=== PATIENT | male | born 1935 | race Caucasian/White ===

== ENCOUNTER 2016-05-24 05:03 | Inpatient (IN) | payer OTHER ==
[2016-05-09 10:35] VITALS: BMI 28.0
--- NOTE | 2016-05-09 11:02 | PAT Medication Instructions ---
Service Date May 09, 2016. Current Home Medication List Acetaminophen/Diphenhydramine (Tylenol Pm), 2 TAB PO HS Aspirin (Aspirin Chewable), 81 MG PO QAM Fish Oil (Waycross-3), 1 CAP PO QAM Glipizide (Glipizide Er), 1 TAB PO BID Lisinopril (Zestril), 5 MG PO QAM Multivitamin (Multivitamin), 1 TAB PO QAM Red Yeast Rice Extract (Red Yeast Rice), 600 MG PO QAM Sitagliptin Phosphate (Januvia), 100 MG PO QAM [Cholesterol Ess], 1 TAB PO BID [Otc Eye Drops], 1 DROP OPB PRN Medication Instructions For Your Scheduled Surgery - Hold the following medications 2 weeks prior to surgery: Fish Oil (Waycross-3), 1 CAP PO QAM Red Yeast Rice Extract (Red Yeast Rice), 600 MG PO QAM - Hold the following medications the morning of surgery: [Cholesterol Ess], 1 TAB PO BID Glipizide (Glipizide Er), 1 TAB PO BID Lisinopril (Zestril), 5 MG PO QAM Multivitamin (Multivitamin), 1 TAB PO QAM Sitagliptin Phosphate (Januvia), 100 MG PO QAM - Take the following medications the morning of surgery with a sip of water OTHERWISE NOTHING TO EAT OR DRINK AFTER MIDNIGHT: [Otc Eye Drops], 1 DROP OPB PRN Aspirin (Aspirin Chewable), 81 MG PO QAM - Take the following medications as scheduled the night before surgery: [Otc Eye Drops], 1 DROP OPB PRN Acetaminophen/Diphenhydramine (Tylenol Pm), 2 TAB PO HS [Cholesterol Ess], 1 TAB PO BID Glipizide (Glipizide Er), 1 TAB PO BID If you have any questions please call us at [phone] or [phone] or [phone]
--- NOTE | 2016-05-09 11:40 | DIAGNOSTIC IMAGING REPORT ---
CHEST PREADMISSION(PA/LAT) CLINICAL HISTORY: PAT preoperative evaluation COMPARISON STUDY: 04/21/2015 FINDINGS: The bones soft tissues and hemidiaphragms are normal. The cardiomediastinal silhouette is normal. The lungs are clear. The pulmonary vasculature is normal. IMPRESSION: Negative chest. Electronically signed by: Anrdes Ruffin M.D. 05/09/2016 11:38 AM Dictated Date/Time: 05/09/2016 11:38 AM
[2016-05-09 11:46] LABS: BASO % 0.1 %; BASO ABS # 0.01 K/uL (0-0.2); COMPLETE YES; EOS % 0.9 %; HEMATOCRIT 38.7 % (42-52); IG% 1.4 %; LYMPH % 40.6 %; LYMPH ABS # 3.67 K/uL (1.2-3.4); MEAN CELL VOLUME 88.4 fL (80-100); MEAN CORPUSCULAR HEMOGLOBIN 32.2 pg (25-34); MEAN CORPUSCULAR HGB CONC 36.4 g/dl (32-36); MEAN PLATELET VOLUME 10.7 fL (7.4-10.4); MONO % 10.2 %; NEUT % 46.8 %; PLATELET COUNT 165 K/uL (130-400); RED BLOOD COUNT 4.38 M/uL (4.7-6.1); WHITE BLOOD COUNT 9.04 K/uL (4.8-10.8)
[2016-05-09 11:56] LABS: PROTHROMBIN TIME (PATIENT) 10.7 SECONDS (9.0-12.0)
[2016-05-09 12:06] LABS: BLOOD UREA NITROGEN 30 mg/dl (7-18); BUN/CREATININE RATIO 24.7 (10-20); C-REACTIVE PROTEIN < 0.29 mg/dl (0-0.29); CALCIUM 8.3 mg/dl (8.5-10.1); CARBON DIOXIDE 26 mmol/L (21-32); CHLORIDE 101 mmol/L (98-107); GLUCOSE 246 mg/dl (70-99); POTASSIUM 3.9 mmol/L (3.5-5.1); SODIUM 138 mmol/L (136-145)
[2016-05-09 13:12] LABS: ESTIMATED AVERAGE GLUCOSE 163 mg/dl; HA1C FLAG Normal (Normal)
--- NOTE | 2016-05-21 13:15 | HISTORY & PHYSICAL EXAMINATION ---
DATE OF ADMISSION: 05/24/2016 CHIEF COMPLAINT: Right hip and leg pain. HISTORY OF PRESENT ILLNESS: A 80-year-old gentleman pretty well known to me from previous right knee replacement done about 2-1/2 years ago. He has done pretty well from this knee standpoint. Since that time he has had 2 back surgeries done in [place]. He continues to be bothered by right hip and leg pain and describes it has gotten worse over time. He is having difficulty even getting around. He has actually thought about going to use a wheelchair. He has tried a cane but still causes quite a bit of discomfort. He describes groin and thigh pain. He has been managed by the pain clinic unsuccessfully. X-rays show advanced hip arthritis and he would like to have this hip fixed. PAST MEDICAL HISTORY: 1. Diabetes x15 years. 2. Low back pain. 3. Mild obesity, BMI 28.2. PAST SURGICAL HISTORY: 1. Back surgery x2. 2. Right knee replacement 2-1/2 years ago. ALLERGIES: None. CURRENT MEDICATIONS: 1. Lisinopril. 2. Januvia. 3. Glipizide. 4. Multivitamin. 5. Fish oil. 6. Red Rice Yeast. SOCIAL HISTORY: A 80-year-old male. He lives with some family members at home. Does not have a . He went to rehab after his spine surgery. FAMILY HISTORY: Noncontributory. REVIEW OF SYSTEMS: Significant for diabetes with an A1c of 7.3. Denies any chest pain, shortness of breath. No history of DVT or PE. No problems with infection. PHYSICAL EXAMINATION: GENERAL: Reveals a pleasant elderly male, looks to be in pretty good health. HEAD, EYES, EARS, NOSE, AND THROAT EXAMINATION: Benign. NECK: Supple. No lymphadenopathy. LUNGS: Clear to auscultation. HEART: Regular rate and rhythm. ABDOMEN: Soft, nontender, nondistended. EXTREMITY EXAMINATION: Grossly neurologically intact except as follows: Examination of right hip reveals the patient walks with a limp. His knee incision is well healed. No significant swelling. His leg lengths are pretty equal. He does have limited hip motion with pain with any type of internal rotation. Negative straight leg raise. X-RAYS: X-rays of the right hip revealed advanced right hip DJD. He has got complete loss of his joint space. He has got cystic changes of the femoral head and acetabulum. He has got flattening of the femoral head. X-rays of the lumbar spine reveal previous spine fusion and decompression from L4 to the sacrum. No obvious signs of problems. ASSESSMENT: A 80-year-old male status post 2 previous spine surgeries with advanced right hip arthritis. I think this is the source of the majority of his pain at this point. It is becoming incapacitating and he is having trouble getting around. PLAN: We talked about treatment. He would like to have his right hip replaced. We will take him to the operating room and do a right total hip replacement. The risks and benefits of this procedure were explained to the patient including but not limited to DVT, PE, , infection, neurological injury, vascular injury, bleeding problem, pain, limited range of motion, stiffness, failure to relieve symptoms, incomplete relief of symptoms, need for further surgery in the future, fracture, leg length inequality, nerve palsy, dislocation, etc. The patient understands and desires to proceed. Informed consent was obtained. We did talk to him about holding his lisinopril the morning of surgery. He is hoping to go to [facility] for a brief rehab stay after surgery. I did do a workup and everything looked pretty good. Sed rate and C-reactive protein are both negative for any signs of infection. Chest x-ray negative and EKG normal.
[~2016-05-24] VITALS: Ht 175.3 cm; Wt 87.7 kg
[2016-05-24] VITALS (18 sets, daily range): BP systolic 117–166; BP diastolic 61–94; PULSE 65–109; TEMP 36.4–37; O2SAT 92–99; Ht 175.3 cm; Wt 87.7 kg
[~2016-05-24 05:03] MED LIST: ASPCH81X PO; DIPH-437 PO; GLIP-199 PO; LISI-729 PO; MULT-506 PO; OMEG10007 PO; OTC EYE DROPS OPB; REDCAP2 PO; SITA100T3 PO; [UNRECOGNIZED DRUG - OTHER] PO
[2016-05-24] MEDS ORDERED: FAMOTIDINE 20 MG TAB PO SCH (06:00)
[2016-05-24] MEDS ORDERED: BUPIVACAINE LIPOSOME 266 MG, BUPIVACAINE/EPINEPHRINE INJ 50 ML, SODIUM CHLORIDE 0.9% PF... INFIL SCH ×3 (06:00)
[2016-05-24] MEDS ORDERED: METOCLOPRAMIDE HCL 10 MG TAB PO SCH (06:00)
[2016-05-24] MEDS ORDERED: GABAPENTIN 300 MG CAP PO SCH (06:00)
[2016-05-24] MEDS ORDERED: ACETAMINOPHEN 500 MG TAB PO SCH (06:00)
[2016-05-24] MEDS ORDERED: LACTATED RINGER'S 1000ML 1,000 ML IV SCH (06:00)
[2016-05-24] MEDS ORDERED: SCOPOLAMINE 1.5 MG TDSY TD SCH (06:00)
[2016-05-24] MEDS ORDERED: LACTATED RINGER'S 1000ML IV SCH (06:00)
[2016-05-24] MEDS ORDERED: CEFAZOLIN 2000 MG/60 ML D5W 60 ML IV SCH (06:00)
[2016-05-24] MEDS ORDERED: TRANEXAMIC ACID INJ 1,000 MG in SODIUM CHLORIDE 0.9% 100ML 100 ML IV SCH ×2 (06:00→15:00)
[2016-05-24] MEDS ORDERED: BUPIVACAINE 0.5 % 5 MG/1 ML PF 10ML VIAL ONE (06:31)
[2016-05-24] MEDS ORDERED: BUPIVACAINE/EPINEPHRINE 0.5% MPF 1:200,000 30 ML VIAL ONE (06:33)
[2016-05-24] MEDS ORDERED: BACITRACIN 50000 UNIT VIAL ONE (06:33)
[2016-05-24] MEDS ORDERED: PROPOFOL IV EMULSION 10 MG/ML 20 ML VIAL IV ONE (06:34)
[2016-05-24] MEDS ORDERED: LIDOCAINE HCL 2% 2 ML VIAL (20MG/ML) ONE (06:34)
[2016-05-24] MEDS ORDERED: MIDAZOLAM HCL 1 MG/ML 2ML VIAL ONE (06:34)
[2016-05-24] MEDS ORDERED: FENTANYL CITRATE INJ 50 MCG/1 ML 2 ML VIAL ONE (06:34)
[2016-05-24] MEDS ORDERED: MoRPHine SULFATE PF 1 MG/ML 10 ML AMP/VIAL ONE (06:40)
--- NOTE | 2016-05-24 06:53 | History & Physical Bridge Note ---
H&P Re-Evaluation Bridge Note: I have examined the patient, reviewed the History & Physical and in the interval since the performance of the History & Physical I have noted the following changes of clinical significance: No changes noted
[2016-05-24] MEDS ORDERED: LACTATED RINGER'S 1000ML 500 ML IV PRN (07:22)
[2016-05-24] MEDS ORDERED: NALOXONE HCL INJ 0.08 MG in SYRINGE 1.8 ML IV PRN (07:22)
[2016-05-24] MEDS ORDERED: SODIUM CHLORIDE 0.9% 1000ML 1,000 ML IV PRN (07:22)
[2016-05-24] MEDS ORDERED: NALOXONE HCL INJ 1 MG in SODIUM CHLORIDE 0.9% 1000ML 1,000 ML IV PRN (07:22)
[2016-05-24] MEDS ORDERED: PHENYLEPHRINE 100MCG/ML 5ML SYR ONE (07:28)
[2016-05-24] MEDS ORDERED: EpHEDrine SULFATE INJ 50 MG/ML AMP IV PRN ×2 (07:30)
[2016-05-24] MEDS ORDERED: FENTANYL CITRATE INJ 50 MCG/1 ML 2 ML VIAL IV PRN (07:30)
[2016-05-24] MEDS ORDERED: DiphenhydrAMINE HCL 50 MG/ML VIAL IV PRN (07:30)
[2016-05-24] MEDS ORDERED: ONDANSETRON INJ 2 MG/ML 2 ML VIAL IV PRN ×2 (07:30→09:00)
[2016-05-24] MEDS ORDERED: NALBUPHINE HCL INJ 10 MG/ML AMP IV PRN (07:30)
[2016-05-24] MEDS ORDERED: NALOXONE HCL 0.4 MG/1 ML VIAL/CARP IV PRN (07:30)
[2016-05-24] MEDS ORDERED: ATROPINE SULFATE 0.1 MG/ML 5ML SYR IV PRN (07:30)
[2016-05-24] MEDS ORDERED: MEPERIDINE HCL 25 MG/ML CARP IV PRN (07:30)
[2016-05-24] MEDS ORDERED: NO NARCOTICS OR SEDATIVES SCH (07:30)
[2016-05-24] MEDS ORDERED: MoRPHine SULFATE PF 1 MG/ML 10 ML AMP/VIAL EPI PRN (07:30)
--- NOTE | 2016-05-24 08:48 | [facility] Post Operative Brief Note ---
Immediate Operative Summary Operative Date May 24, 2016. Pre-Operative Diagnosis Advanced right hip arthritis Post-Operative Diagnosis Advanced right hip arthritis Procedure(s) Performed Right Total Hip Arthroplasty, uncemented with beaded cables times two. Surgeon Dr Elan Truong Room Service Manager Surgeon(s) Bill Santamaria PA-C Estimated Blood Loss 300ml Findings Right Hip DJD Fluids (cc crystalloids) 1600 cc Specimens A: right femoral head Drains None Anesthesia Spinal Complication(s) Medial Calcar Fracture with implant impaction. Placed 2 Dall-Miles cables to prevent propogation of fracture. Disposition Recovery Room / PACU
[2016-05-24] MEDS ORDERED: GLUCOSE 10 TABS/TUBE PO PRN (09:00)
[2016-05-24] MEDS ORDERED: BISACODYL 10 MG SUPP PR PRN (09:00)
[2016-05-24] MEDS ORDERED: TAMSULOSIN HCL 0.4 MG CAP PO PRN (09:00)
[2016-05-24] MEDS ORDERED: SILVER SULFADIAZINE 1% CR 50 GM JAR EXT PRN (09:00)
[2016-05-24] MEDS ORDERED: METOCLOPRAMIDE HCL INJ 5 MG/ML 2 ML VIAL IV PRN (09:00)
[2016-05-24] MEDS ORDERED: ALUMINUM/MAGNESIUM/SIMETH (MAALOX MAX) 30 ML UDC PO PRN (09:00)
[2016-05-24] MEDS ORDERED: GLUCAGON FOR INJ 1 MG VIAL SQ PRN (09:00)
[2016-05-24] MEDS ORDERED: [UNRECOGNIZED DRUG - OTHER] PO SCH (09:00)
[2016-05-24] MEDS ORDERED: MULTIVITAMIN TAB PO SCH (09:00)
[2016-05-24] MEDS ORDERED: GLUCOSE 40% GEL 15 GM TUBE PO PRN (09:00)
[2016-05-24] MEDS ORDERED: DEXTROSE 50% 50 ML SYR IV PRN (09:00)
[2016-05-24] MEDS ORDERED: EYE OPB SCH (09:00)
[2016-05-24] MEDS ORDERED: MAGNESIUM HYDROXIDE SUSP 30 ML UDC PO PRN (09:00)
[2016-05-24] MEDS ORDERED: NO NSAIDS SCH (09:00)
--- NOTE | 2016-05-24 09:44 | OPERATIVE REPORT ---
DATE OF OPERATION: 05/24/2016 SURGEON: Elan Truong MD. INSERTING OPERATOR: ANJUM Robles. PREOPERATIVE DIAGNOSIS: Right hip degenerative joint disease. POSTOPERATIVE DIAGNOSIS: Same. PROCEDURE PERFORMED: Right uncemented total hip arthroplasty. COMPLICATIONS: Medial calcar fracture, treated with cerclage cable x2. ESTIMATED BLOOD LOSS: 300 mL FLUID REPLACEMENT: 1600 mL crystalloid fluid replacement. ANESTHESIA: Spinal. DRAINS: None. SPECIMENS: Right femoral head sent for pathology. OPERATIVE INDICATIONS: The patient is a 80-year-old gentleman who is 2-1/2 years out from right knee replacement. He has done well, but over the past year he has developed markedly increased pain and discomfort in his right hip. He has been through several extensive back operations. He has become more and more debilitated by his hip pain. X-rays show advanced right hip DJD. He has been using a cane to get around. He elected to proceed with total hip arthroplasty. OPERATIVE FINDINGS: Operative findings revealed advanced right hip DJD. He had grade 4 [id number] disease of the femoral head and acetabulum. He has significant hip joint effusion. He had osteophytes around the femoral neck and head area. OPERATIVE IMPLANTS: Operative implants consisted of: 1. Biomet G7 size 58 mm acetabular shell. 2. 6.5 cancellous acetabular screws, one 35 mm in length and one 25 mm in length. 3. An apex hole eliminator. 4. Highly cross-linked polyethylene liner with 58 mm outer diameter, 36 mm inner diameter, with a arshad placed very inferior and posterior. 5. A DePuy size 13.5 large stature femoral stem. 6. A +1.5/36 mm metal articular ball. 7. 2.0 Dall-Miles cables x2. OPERATIVE PROCEDURE: The patient was taken to the operating room, identified and placed on the operative table in supine position. All contact areas were appropriately padded. IV antibiotics provided by anesthesia team. A spinal anesthetic had been implemented in the holding area. Jenkins catheter was placed in sterile fashion. The patient was then placed in the left lateral decubitus position. An axillary roll was placed. A Stulberg hip positioner was used for positioning. The right hip and leg were then prepped and draped in usual sterile fashion. A posterolateral approach to the right hip was then performed through a curvilinear incision centered over the greater trochanter. Sharp dissection was carried out through the subcutaneous tissue down to the level of the IT band and gluteal fascia. The IT band and gluteal fascia were incised longitudinally in line with skin incision. The piriformis and external rotators were tagged and taken off the posterior aspect of the femur. Great care was taken throughout the procedure to protect the sciatic nerve at all times. Posterior capsulotomy was then performed, leaving a large flap for later repair. Hip was internally rotated and dislocated. Femoral neck osteotomy cut was made with the final cut about 17 mm above the lesser trochanter. Femoral head was removed and sent for pathology. The femur was retracted anteriorly. Attention was then drawn to the acetabulum. The acetabular labrum was excised. The pulvinar fat was excised. Sequential reaming of the acetabulum was then performed beginning with a size 45 and progressing up to 57. A 58 mm Biomet G7 acetabular shell was then placed in about 40 degrees of lateral opening and 20 degrees of anteversion. It was fixed with two 6.5 cancellous acetabular screws. A trial liner was placed. Attention was then drawn to the femur. The proximal femur was entered with a cookie cutter, followed by a canal finder and lateralizing reamer. Sequential reaming of the femur was then performed beginning with a size 9 and progressing up to a 13. We got pretty good chatter at about 12. I then broached beginning with a size 10.5 and progressing up to a 13.5 small broach. This countersunk pretty easily, so I elected to place a large stem. We placed a large broach, but upon placing this without much forcible impaction, there was a little crack in the medial calcar which did seem to propagate slightly as we implanted the trial. Therefore, we got two 2.0 Dall-Miles cables and placed one just above the lesser trochanter and one just below. I then broached again with the broach and was able to get it down close to the calcar cut but not quite. We elected not to force this. There were no signs of propagation of the fracture line below the lesser trochanter or even down to the wire. We then trialed the hip and the +1 articular ball seemed to provide appropriate soft tissue tension and leg lengths. It was fully stable in full extension, external rotation, flexion to 90 degrees, internal rotation to [address] a arshad inferior and posterior to maximize stability in flexion. I thought it was a little bit too tight with the +5 head. Attention was then drawn toward placing these permanent components. All trial components were removed. An apex hole eliminator was placed. A highly cross-linked polyethylene liner with a arshad placed inferior and posterior was then placed. A 13.5 large stature AML femoral stem was impacted in position. There were no further signs of propagation of the fracture. I then placed a +1.5/36 mm metal articular ball and hip was located and once again found to be stable. Attention was then drawn toward closing. The wound was irrigated with copious amounts of normal saline. I injected locally with 60 mL of 0.5% Marcaine with epinephrine. The posterior capsule and external rotators were repaired through drill holes and posterior trochanter with #2 Ti-Cron suture. The IT band and gluteal fascia were then closed with #1 PDS suture in running fashion. The subcutaneous tissues were then closed in 2 layers, the deep layer #1 Vicryl suture and the subcutaneous tissue with 2-0 Dexon suture in a buried interrupted fashion. The skin was then closed with kevin. The leg was then cleaned and dried, and a sterile dressing of Xeroform, 4 x 4's, sterile ABD pad and foam tape was applied. The patient was then transferred to the recovery room in stable condition. The patient tolerated the procedure well, no additional complications. All needle and sponge counts were correct at the end of the operation. I attest to the content of the Intraoperative Record and any orders documented therein. Any exceptions are noted below. SHER
--- NOTE | 2016-05-24 09:44 | Anesthesiology Progress Note ---
Anesthesia Post Op Note Date & Time May 24, 2016 at 09:45 Vital Signs Pain Intensity: 0 Vital Signs Past 12 Hours Date Time Temp Pulse Resp B/P Pulse Ox O2 Delivery O2 Flow Rate FiO2 05/24/16 09:35 36.4 70 15 121/57 97 Nasal Cannula 2 05/24/16 09:25 36.4 70 15 104/59 97 Nasal Cannula 2 05/24/16 09:15 70 15 109/59 98 Nasal Cannula 2 05/24/16 09:05 71 15 112/52 97 Nasal Cannula 2 05/24/16 08:55 74 13 108/58 97 Nasal Cannula 2 05/24/16 08:48 37.0 74 16 114/57 97 Nasal Cannula 2 05/24/16 06:01 36.5 84 20 166/94 95 Room Air Notes Mental Status: alert / awake / arousable, participated in evaluation Pt Amnestic to Procedure: Yes Nausea / Vomiting: adequately controlled Pain: adequately controlled Airway Patency, RR, SpO2: stable & adequate BP & HR: stable & adequate Hydration State: stable & adequate Neuraxial Anesthesia: was administered, sensory block is resolving Anesthetic Complications: no major complications apparent
--- NOTE | 2016-05-24 09:54 | DIAGNOSTIC IMAGING REPORT ---
RIGHT PELVIS/UNILATERAL HIP 1 VIEW CLINICAL HISTORY: IN PACU - A/P PELVIS and LATERAL HIP INCLUDING ALL OF IMPLANT Right COMPARISON: None. DISCUSSION: Patient is status post total right hip replacement. Due to compression wires is seen at the level of the lesser trochanter. I'm is anatomic. No evidence for acetabular protrusion. Good contact between metallic prosthetic and underlying bone. Expected soft tissue postoperative change IMPRESSION: Anatomic alignment status post total right hip replacement Electronically signed by: Andres Ruffin M.D. 05/24/2016 9:53 AM Dictated Date/Time: 05/24/2016 9:52 AM
[2016-05-24] MEDS: SODIUM CHLORIDE 0.9% 1000ML 1,000 ML IV SCH ×2 (10:55→21:04)
[2016-05-24] MEDS ORDERED: ASPIRIN 325 MG ECTAB PO ONE (11:00)
[2016-05-24] MEDS: FERROUS GLUCONATE 324 MG TAB PO SCH ×2 (12:11→18:34)
[2016-05-24] MEDS: INSULIN HUMAN REGULAR SC SCH ×3 (12:16→21:03)
[2016-05-24] MEDS: ACETAMINOPHEN 500 MG TAB PO SCH ×2 (13:29→21:48)
[2016-05-24] MEDS: CEFAZOLIN IV 2,000 MG in DEXTROSE 5% 50ML 50 ML IV SCH ×2 (13:29→21:48)
--- NOTE | 2016-05-24 13:35 | PROGRESS NOTE ---
DATE: 05/24/2016 SUBJECTIVE: A 80-year-old gentleman postop from a right total hip replacement. He is doing well. He is sitting up in bed and talking to his son. Looks pretty comfortable. Denies any pain. No chest pain or shortness of breath. No hip pain. OBJECTIVE: VITAL SIGNS: Temperature is 36.4. Vital signs stable. GENERAL: Reveals a healthy pleasant elderly male. He is sitting up in bed and looks pretty comfortable. LUNGS: Clear to auscultation. HEART: Regular rate and rhythm. ABDOMEN: Soft, nontender, nondistended. EXTREMITIES: Grossly neurovascularly intact except as follows. Examination of the right lower extremity reveals the leg to be well aligned. Hip is located. He can dorsiflex and plantarflex his foot appropriately. He is neurologically intact. X-RAYS: X-rays of the right hip from recovery room were reviewed. It shows a right uncemented total hip arthroplasty. Components are in good position. No signs of problems. Cerclage cables are in place. No signs of fracture. ASSESSMENT: A 80-year-old gentleman postop from a right total hip replacement, doing well. We did have a small calcar fracture which did not propagate and we placed cerclage cables around that. I did discuss that with his son as well as the patient today. I do not think we need to alter his rehabilitation status. PLAN: 1. DVT prophylaxis including thigh-high TEDs, SCDs, and aspirin twice a day. 2. PT and OT. We are going to let him weightbear as tolerated. We use pain as a guide. I do not think we need to alter his weightbearing status based on a small crack and it is well stabilized with cerclage cables. 3. IV antibiotics x24 hours. 4. Pain control, doing well with current pain regimen. We are going to try and limit narcotic use to avoid confusion. 5. Medical management as per the medicine physicians. 6. Disposition: He is hoping to be discharged to [facility] for a brief rehab stay once stable.
--- NOTE | 2016-05-24 14:26 | Medical Consult ---
Consultation Date of Consultation: May 24, 2016. Attending Physician: Elan Truong M.D. Reason for Consultation: Medical management History of Present Illness This patient is a 80-year-old male that underwent a right ADRIAN today with Dr. Truong. He currently has no complaints. Denies any pain. The leg is still numb. Denies any nausea. Tolerating his diet. He has not yet passed gas or had any bowel movements. Denies any history of coronary artery disease or blood clots. Denies any recent chest pain or pressure. The patient has a history of hypertension and diabetes type 2. He reports his blood sugars have been well controlled at home. Past Medical/Surgical History Diabetes type 2 Hypertension Family History Family history of hypertension, diabetes Social History Smoking Status: Former Smoker Alcohol Use: none Occupation Status: retired Allergies Coded Allergies: NSAIDs (Unverified Adverse Reaction, Severe, GI UPSET, 05/24/16) Current Inpatient Medications Current Inpatient Medications Medications (Trade) Dose Ordered Sig/Solis Route Start Time Stop Time Status Last Admin Dose Admin Lactated Ringer's 1,000 ml @ 60 mls/hr [id number] IV 05/24/16 06:00 05/24/16 22:39 05/24/16 06:21 60 MLS/HR Cefazolin Sodium (Ancef 2000mg/60 ml D5W) 60 ml @ 100 mls/hr PREOP IV 05/24/16 06:00 05/24/16 18:00 05/24/16 06:58 100 MLS/HR Acetaminophen 1000 mg 1,000 mg PREOP PO 05/24/16 06:00 05/24/16 18:00 05/24/16 06:21 1,000 MG Bupivacaine Liposome/ Bupivacaine HCl/ Epinephrine Bitart/Sodium Chloride/Syringe (Exparel/ BUPIVACAINE/ EPINEPHRINE 0.25% Inj/Sodium Chloride 0.9% Pf Inj/Syringe) 100 ml @ 0 mls/hr 06 INFIL 05/24/16 06:00 05/24/16 18:00 Famotidine (Pepcid Tab) 20 mg PREOP PO 05/24/16 06:00 05/24/16 18:00 05/24/16 06:21 20 MG Gabapentin (Neurontin Cap) 300 mg PREOP PO 05/24/16 06:00 05/24/16 18:00 3/21/17 06:21 300 MG Metoclopramide HCl (Reglan Tab) 10 mg PREOP PO 05/24/16 06:00 05/24/16 18:00 05/24/16 06:21 10 MG Scopolamine (Transderm-Scop Patch) 1.5 mg PREOP TD 05/24/16 06:00 05/24/16 15:00 Miscellaneous (Remove Transderm-Scop Patch) 1 ea Q72H N/A 05/27/16 06:00 05/27/16 06:01 Miscellaneous Information 1 ea 1 ea QS N/A 05/24/16 16:00 05/26/16 05:59 Tranexamic Acid/ Sodium Chloride (Cyklokapron Inj/ Nss 100ml) 110 ml @ 660 mls/hr TODAY@0600 IV 05/24/16 06:00 05/24/16 18:00 Naloxone HCl (Narcan Inj) 0.1 mg UD PRN IV 05/24/16 07:30 05/25/16 01:00 Diphenhydramine HCl (Benadryl Inj) 25 mg Q6H PRN IV 05/24/16 07:30 05/25/16 01:00 Nalbuphine HCl 5 mg 5 mg Q10M PRN IV 05/24/16 07:30 05/25/16 01:00 Naloxone HCl/ Sodium Chloride (Narcan Inj/Nss 1000ml) 1,002.5 ml @ 50 mls/hr Q20H3M PRN IV 05/24/16 07:22 05/25/16 01:00 Meperidine HCl (Demerol Inj) 25 mg Q15M PRN IV 05/24/16 07:30 05/25/16 01:00 Miscellaneous Information (Dc Intraspinal Morphine) 1 ea TODAY@0100 N/A 05/25/16 01:00 05/25/16 01:01 Miscellaneous Information 1 ea 1 ea UD N/A 05/24/16 07:30 05/25/16 01:00 Naloxone HCl 0.08 mg/Syringe 2 ml @ 1 mls/min Q2M PRN IV 05/24/16 07:22 05/25/16 01:00 Lactated Ringer's (Lr 1000ml) 500 ml @ 999 mls/hr Q31M PRN IV 05/24/16 07:22 05/25/16 01:00 Ephedrine Sulfate (EpHEDrine SULFATE INJ) 10 mg Q5M PRN IV 05/24/16 07:30 05/25/16 01:00 Morphine Sulfate TODAY PRN EPI 05/24/16 07:30 05/25/16 01:00 Sodium Chloride 1,000 ml @ 15 mls/hr Q24H PRN IV 05/24/16 07:22 05/25/16 01:00 Sodium Chloride (Nss 1000ml) 1,000 ml @ 100 mls/hr Q10H IV 05/24/16 10:30 05/25/16 10:29 05/24/16 10:55 100 MLS/HR Miscellaneous Medication (No Nsaids) 1 ea UD N/A 05/24/16 09:00 06/23/16 08:59 Acetaminophen (Tylenol Tab) 1,000 mg Q8 PO 05/24/16 14:00 06/23/16 13:59 05/24/16 13:29 1,000 MG Magnesium Hydroxide (Milk Of Magnesia Susp) 30 ml Q6H PRN PO 05/24/16 09:00 06/23/16 08:59 Bisacodyl (Dulcolax Supp) 10 mg DAILY PRN NJ 05/24/16 09:00 06/23/16 08:59 Docusate Sodium (coLACE CAP) 100 mg BID PO 05/24/16 21:00 06/23/16 20:59 Diphenhydramine HCl (Benadryl Cap) 25 mg Q8H PRN PO 05/25/16 01:00 06/24/16 00:59 Diphenhydramine HCl (Benadryl Inj) 25 mg Q8H PRN IV 05/25/16 01:00 06/24/16 00:59 Al Hydrox/Mg Hydrox/Simethicone (Maalox Max Susp) 15 ml Q4H PRN PO 05/24/16 09:00 06/23/16 08:59 Zolpidem Tartrate (Ambien Tab) 5 mg HSZ PRN PO 05/25/16 01:00 06/24/16 00:59 Ondansetron HCl (Zofran Inj) 4 mg Q6H PRN IV 05/24/16 09:00 06/23/16 08:59 Metoclopramide HCl (Reglan Inj) 10 mg Q6H PRN IV 05/24/16 09:00 06/23/16 08:59 Ferrous Gluconate (Ferrous Gluconate Tab) 324 mg TIDM PO 05/24/16 12:00 06/23/16 11:59 05/24/16 12:11 324 MG Pantoprazole Sodium (Protonix Tab) 40 mg QAM PO 05/25/16 09:00 06/24/16 08:59 Silver Sulfadiazine (Silvadene 1% Crm 50GM Jar) 1 appln BID PRN EXT 05/24/16 09:00 06/23/16 08:59 Aspirin (Ecotrin Tab) 325 mg BID PO 05/24/16 21:00 06/23/16 20:59 Tramadol HCl (Ultram Tab) 1 TABLET FOR PAIN RATING... Q4H PRN PO 05/25/16 01:00 06/24/16 00:59 Tamsulosin HCl 0.4 mg 0.4 mg QAM PRN PO 05/24/16 09:00 06/23/16 08:59 Cefazolin Sodium 2000 mg/Dextrose 60 ml @ 100 mls/hr Q8H IV 05/24/16 14:00 05/24/16 22:35 05/24/16 13:29 100 MLS/HR Tranexamic Acid/ Sodium Chloride (Cyklokapron Inj/ Nss 100ml) 110 ml @ 660 mls/hr TODAY@1500 IV 05/24/16 15:00 05/24/16 17:00 Lisinopril (Zestril Tab) 5 mg QAM PO 05/25/16 09:00 06/24/16 08:59 Multivitamins (Multivitamin Tab) 1 tab QAM PO 05/25/16 09:00 06/24/16 08:59 Sitagliptin Phosphate (Januvia Tab) 100 mg QAM PO 05/25/16 09:00 06/24/16 08:59 Glipizide (GlipiZIDE EXTENDED REL TAB) 10 mg BIDM PO 05/24/16 17:45 06/23/16 17:44 Insulin Human Regular (novoLIN-R) 1 units ACHS SC 05/24/16 11:00 06/23/16 10:59 05/24/16 12:16 1 UNITS Glucose (Glucose 40% Gel) 15-30 GRAMS 15 GRAMS... UD PRN PO 05/24/16 09:00 06/23/16 08:59 Glucose (Glucose Chew Tab) 4-8 Tablets 4 Tabl... UD PRN PO 05/24/16 09:00 06/23/16 08:59 Dextrose (Dextrose 50% 50ML Syringe) 25-50ML OF 50% DW IV FOR... UD PRN IV 05/24/16 09:00 06/23/16 08:59 Glucagon (Glucagon Inj) 1 mg UD PRN SQ 05/24/16 09:00 06/23/16 08:59 Hydromorphone HCl (Dilaudid Inj) 1 mg Q1H PRN IV 05/25/16 01:00 06/08/16 00:59 Review of Systems 10 system review performed and negative unless noted in HPI or below Physical Exam Date Time Temp Pulse Resp B/P Pulse Ox O2 Delivery O2 Flow Rate FiO2 05/24/16 12:56 36.4 68 16 146/79 95 Room Air 05/24/16 11:59 65 20 137/80 94 Room Air 05/24/16 11:04 65 19 118/67 92 Room Air 05/24/16 10:30 66 20 117/61 93 Room Air 05/24/16 10:00 99 Nasal Cannula 2.0 05/24/16 10:00 Nasal Cannula 05/24/16 10:00 36.8 74 16 117/64 99 Nasal Cannula 2.0 05/24/16 09:35 36.4 70 15 121/57 97 Nasal Cannula 2 05/24/16 09:25 36.4 70 15 104/59 97 Nasal Cannula 2 05/24/16 09:15 70 15 109/59 98 Nasal Cannula 2 05/24/16 09:05 71 15 112/52 97 Nasal Cannula 2 05/24/16 08:55 74 13 108/58 97 Nasal Cannula 2 05/24/16 08:48 37.0 74 16 114/57 97 Nasal Cannula 2 05/24/16 06:01 36.5 84 20 166/94 95 Room Air General Appearance: no apparent distress Head: normocephalic Eyes: EOMI Neck: no JVD Respiratory/Chest: lungs clear Cardiovascular: regular rate, rhythm Abdomen/GI: normal bowel sounds, non tender, soft Extremities/Musculoskelatal: no pedal edema Neurologic/Psych: oriented x 3 Skin: warm/dry Laboratory Results Last 24 Hours Test 05/24/16 06:14 05/24/16 08:54 05/24/16 11:33 Bedside Glucose 146 mg/dl 139 mg/dl 132 mg/dl Assessment & Plan 80-year-old male status post elective right ADRIAN 05/24 -pain management, DVT prophylaxis, PT per primary team Diabetes mellitus-BSGs stable -Continue glipizide extended release 10 mg twice daily -Continue Januvia 100 mg daily -Insulin sliding scale -Follow BSG's in the morning, in the evening and with meals Hypertension -Continue lisinopril 5 mg daily -Hydralazine 10 mg IV q 6 hr PRN PA Physician Supervision Note: I interviewed and examined the patient. Discussed with Aleta CHAPARRO and agree with findings and plan as documented in the note. Any exceptions or clarifications are listed here: None PT with diabetes and htn stable post op hip replacement vitals stable pt is stable and has reasonable bp control and diabetes Documented By: Gavin Moser Thank you for this consult. We will continue to follow.
[2016-05-24] MEDS: CHECK SCOPOLAMINE PATCH PLACEMENT SCH (16:06)
[2016-05-24] MEDS: DOCUSATE SODIUM 100 MG CAP PO SCH (20:59)
[2016-05-24] MEDS: ASPIRIN 325 MG ECTAB PO SCH (21:00)
[2016-05-25] VITALS (10 sets, daily range): BP systolic 127–173; BP diastolic 64–77; PULSE 80–103; TEMP 36.6–37.3; O2SAT 94–98
[2016-05-25] MEDS: CHECK SCOPOLAMINE PATCH PLACEMENT SCH ×3 (00:17→15:40)
[2016-05-25] MEDS ORDERED: TRAMADOL HCL 50 MG TAB PO PRN (01:00)
[2016-05-25] MEDS ORDERED: HYDROmorphone INJ 0.5 MG/0.5 ML SYR IV PRN (01:00)
[2016-05-25] MEDS ORDERED: DC INTRASPINAL MORPHINE SCH (01:00)
[2016-05-25] MEDS ORDERED: ZOLPIDEM TARTRATE 5 MG TAB PO PRN (01:00)
[2016-05-25] MEDS ORDERED: DiphenhydrAMINE HCL 50 MG/ML VIAL IV PRN (01:00)
[2016-05-25] MEDS: ACETAMINOPHEN 500 MG TAB PO SCH ×3 (05:56→22:08)
[2016-05-25] MEDS: SODIUM CHLORIDE 0.9% 1000ML 1,000 ML IV SCH (05:57)
[2016-05-25 06:40] LABS: BASO % 0.1 %; BASO ABS # 0.01 K/uL (0-0.2); COMPLETE YES; EOS % 0.4 %; HEMATOCRIT 34.4 % (42-52); IG% 0.4 %; LYMPH % 18.2 %; MEAN CORPUSCULAR HEMOGLOBIN 32.3 pg (25-34); MEAN CORPUSCULAR HGB CONC 35.5 g/dl (32-36); MEAN PLATELET VOLUME 10.5 fL (7.4-10.4); MONO % 12.4 %; NEUT % 68.5 %; PLATELET COUNT 120 K/uL (130-400); RED BLOOD COUNT 3.78 M/uL (4.7-6.1); WHITE BLOOD COUNT 8.22 K/uL (4.8-10.8)
[2016-05-25 07:12] LABS: BUN/CREATININE RATIO 17.8 (10-20); CREATININE 1.3 mg/dl (0.60-1.40); POTASSIUM 4.2 mmol/L (3.5-5.1)
[2016-05-25] MEDS: INSULIN HUMAN REGULAR SC SCH ×4 (08:46→21:24)
[2016-05-25] MEDS: FERROUS GLUCONATE 324 MG TAB PO SCH ×3 (08:57→18:30)
[2016-05-25] MEDS: DOCUSATE SODIUM 100 MG CAP PO SCH ×2 (09:00→21:16)
[2016-05-25] MEDS: ASPIRIN 325 MG ECTAB PO SCH ×2 (09:00→21:16)
[2016-05-25] MEDS: SITAGLIPTIN 100 MG TAB PO SCH (09:02)
[2016-05-25] MEDS: PANTOprazole SOD 40 MG TAB PO SCH (09:03)
[2016-05-25] MEDS: MULTIVITAMIN TAB PO SCH (09:03)
[2016-05-25] MEDS: LISINOPRIL 5 MG TAB PO SCH (09:04)
--- NOTE | 2016-05-25 11:57 | Hospitalist Progress Note ---
Hospitalist Progress Note Date of Service May 25, 2016. Subjective Pt evaluation today including: conversation w/ patient, physical exam, chart review, lab review, review of inpatient medication list Patient complains of mild right hip pain posteriorly. Rates it as a 4/10. Voiding on his own. Passing gas. No bowel movements yet. Admits to getting disoriented last night. Feels back to normal now. Additional Comments: 6 system review negative. Please see pertinent positives in the history of present illness section. Objective Vital Signs Date Time Temp Pulse Resp B/P Pulse Ox O2 Delivery O2 Flow Rate FiO2 05/25/16 11:38 37.1 85 20 127/69 98 Room Air 05/25/16 09:32 94 Room Air 05/25/16 07:57 37.3 80 16 142/70 94 Room Air 05/25/16 05:55 91 05/25/16 03:15 36.9 103 18 132/64 95 Nasal Cannula 2.0 05/25/16 01:00 16 98 05/25/16 00:00 16 94 05/25/16 00:00 Nasal Cannula 2.0 05/24/16 23:25 37.0 109 18 125/75 94 Nasal Cannula 2.0 05/24/16 23:00 16 97 05/24/16 22:00 14 96 Nasal Cannula 2.0 05/24/16 21:00 16 95 Nasal Cannula 2.0 05/24/16 20:00 16 96 Nasal Cannula 2.0 05/24/16 18:54 36.7 86 18 139/72 93 2.0 05/24/16 18:01 76 96 Nasal Cannula 2.0 05/24/16 17:00 68 95 2.0 05/24/16 16:10 Nasal Cannula 2.0 05/24/16 16:00 16 97 Nasal Cannula 2.0 05/24/16 15:29 36.8 73 18 157/74 94 Room Air 05/24/16 15:00 16 94 Room Air 05/24/16 14:00 14 94 Room Air 05/24/16 12:56 36.4 68 16 146/79 95 Room Air 05/24/16 11:59 65 20 137/80 94 Room Air Physical Exam General Appearance: no apparent distress Eyes: EOMI Neck: no JVD Respiratory/Chest: lungs clear Cardiovascular: regular rate, rhythm Abdomen: normal bowel sounds, non tender, soft Extremities: no pedal edema Neurologic/Psychiatric: no motor/sensory deficits, oriented x 3 Skin: warm/dry Laboratory Results 05/25/16 05:45 Red Blood Count 3.78, Mean Corpuscular Volume 91.0, Mean Corpuscular Hemoglobin 32.3, Mean Corpuscular Hemoglobin Concent 35.5, Mean Platelet Volume 10.5, Neutrophils (%) (Auto) 68.5, Lymphocytes (%) (Auto) 18.2, Monocytes (%) (Auto) 12.4, Eosinophils (%) (Auto) 0.4, Basophils (%) (Auto) 0.1, Neutrophils # (Auto ) 5.63, Lymphocytes # (Auto) 1.50, Monocytes # (Auto) 1.02, Eosinophils # (Auto ) 0.03, Basophils # (Auto) 0.01 05/25/16 05:45 Test 05/25/16 05:45 05/25/16 08:16 White Blood Count 8.22 K/uL (4.8-10.8) Red Blood Count 3.78 M/uL (4.7-6.1) Hemoglobin 12.2 g/dL (14.0-18.0) Hematocrit 34.4 % (42-52) Mean Corpuscular Volume 91.0 fL (80-100) Mean Corpuscular Hemoglobin 32.3 pg (25-34) Mean Corpuscular Hemoglobin Concent 35.5 g/dl (32-36) Platelet Count 120 K/uL (130-400) Mean Platelet Volume 10.5 fL (7.4-10.4) Neutrophils (%) (Auto) 68.5 % Lymphocytes (%) (Auto) 18.2 % Monocytes (%) (Auto) 12.4 % Eosinophils (%) (Auto) 0.4 % Basophils (%) (Auto) 0.1 % Neutrophils # (Auto) 5.63 K/uL (1.4-6.5) Lymphocytes # (Auto) 1.50 K/uL (1.2-3.4) Monocytes # (Auto) 1.02 K/uL (0.11-0.59) Eosinophils # (Auto) 0.03 K/uL (0-0.5) Basophils # (Auto) 0.01 K/uL (0-0.2) RDW Standard Deviation 42.9 fL (36.4-46.3) RDW Coefficient of Variation 12.8 % (11.5-14.5) Immature Granulocyte % (Auto) 0.4 % Immature Granulocyte # (Auto) 0.03 K/uL (0.00-0.02) Anion Gap 7.0 mmol/L (3-11) Est Creatinine Clear Calc Drug Dose 50.5 ml/min Estimated GFR () 60.1 Estimated GFR (Non- 51.9 BUN/Creatinine Ratio 17.8 (10-20) Calcium Level 8.0 mg/dl (8.5-10.1) Bedside Glucose 130 mg/dl (70-99) Last 24 Hours Test 05/24/16 16:40 05/24/16 20:39 05/25/16 05:45 05/25/16 08:16 Bedside Glucose 131 mg/dl 168 mg/dl 130 mg/dl White Blood Count 8.22 K/uL Red Blood Count 3.78 M/uL Hemoglobin 12.2 g/dL Hematocrit 34.4 % Mean Corpuscular Volume 91.0 fL Mean Corpuscular Hemoglobin 32.3 pg Mean Corpuscular Hemoglobin Concent 35.5 g/dl Platelet Count 120 K/uL Mean Platelet Volume 10.5 fL Neutrophils (%) (Auto) 68.5 % Lymphocytes (%) (Auto) 18.2 % Monocytes (%) (Auto) 12.4 % Eosinophils (%) (Auto) 0.4 % Basophils (%) (Auto) 0.1 % Neutrophils # (Auto) 5.63 K/uL Lymphocytes # (Auto) 1.50 K/uL Monocytes # (Auto) 1.02 K/uL Eosinophils # (Auto) 0.03 K/uL Basophils # (Auto) 0.01 K/uL RDW Standard Deviation 42.9 fL RDW Coefficient of Variation 12.8 % Immature Granulocyte % (Auto) 0.4 % Immature Granulocyte # (Auto) 0.03 K/uL Sodium Level 142 mmol/L Potassium Level 4.2 mmol/L Chloride Level 106 mmol/L Carbon Dioxide Level 29 mmol/L Anion Gap 7.0 mmol/L Blood Urea Nitrogen 23 mg/dl Creatinine 1.30 mg/dl Est Creatinine Clear Calc Drug Dose 50.5 ml/min Estimated GFR () 60.1 Estimated GFR (Non- 51.9 BUN/Creatinine Ratio 17.8 Random Glucose 144 mg/dl Calcium Level 8.0 mg/dl Assessment and Plan 80-year-old male status post elective right ADRIAN 05/24 -pain management, DVT prophylaxis, PT per primary team Diabetes mellitus-BSGs stable in-house. -Continue current outpatient regimen: Glipizide extended release 10 mg twice daily, Januvia 100 mg daily -Insulin sliding scale -BSG's in the morning, in the evening and with meals Hypertension-BP stable -Continue lisinopril 5 mg daily -Hydralazine 10 mg IV q 6 hr PRN Mild tachycardia-this is likely related to the patient being agitated overnight. Could also be slightly dehydrated. -Encourage oral intake Agitation-according to the son, this also happened with his last surgery. He is lucid on exam now on back to baseline. -No further workup recommended Thank you for this consult. We will continue to follow.
--- NOTE | 2016-05-25 13:41 | Anesthesiology Progress Note ---
Anesthesia Post Op Note Date & Time May 25, 2016 at 13:40 Vital Signs Vital Signs Past 12 Hours Date Time Temp Pulse Resp B/P Pulse Ox O2 Delivery O2 Flow Rate FiO2 05/25/16 11:38 37.1 85 20 127/69 98 Room Air 05/25/16 09:32 94 Room Air 05/25/16 07:57 37.3 80 16 142/70 94 Room Air 05/25/16 05:55 91 05/25/16 03:15 36.9 103 18 132/64 95 Nasal Cannula 2.0 Notes Mental Status: alert / awake / arousable, participated in evaluation Pt Amnestic to Procedure: Yes Nausea / Vomiting: adequately controlled Pain: adequately controlled Airway Patency, RR, SpO2: stable & adequate BP & HR: stable & adequate Hydration State: stable & adequate Neuraxial Anesthesia: sensory block resolved Anesthetic Complications: no major complications apparent
[2016-05-25] MEDS ORDERED: ASPEC325 PO (16:24)
[2016-05-25] MEDS ORDERED: ACET-1138 PO (16:24)
[2016-05-25] MEDS ORDERED: ULT50X PO (16:24)
--- NOTE | 2016-05-25 18:48 | PROGRESS NOTE ---
DATE: 05/25/2016 SUBJECTIVE: 80-year-old gentleman postop day 1 from a right total hip replacement. He is doing pretty well. Having some pain when he weight bears, but that is about it. Certainly more pain than last evening. No chest pain or shortness of breath. Not feeling dizzy or lightheaded. OBJECTIVE: VITAL SIGNS: Temperature 37.1. Vital signs stable. PHYSICAL EXAMINATION: GENERAL: Reveals a healthy, pleasant elderly male. He is sitting up at his bedside chair. I had to wake him as he was dozing off when I went in to see him this afternoon. LUNGS: Clear to auscultation. HEART: Has a regular rate and rhythm. ABDOMEN: Soft, nontender, nondistended. EXTREMITIES: Grossly neurovascularly intact except as follows. Examination of the right hip and leg reveals the leg to be well aligned. Dressing is clean, dry and intact. Thigh is soft and supple. Hip is located. He is neurologically intact. LABORATORY DATA: Hemoglobin 12.2. Hematocrit 34.4. Electrolytes are stable. ASSESSMENT: 80-year-old gentleman postop day 1 from a right total hip replacement, doing pretty well. Some pain with weightbearing, which is not unexpected. I did discuss with him again that when we placed the femoral component, a small crack in the calcar occurred. I placed 2 cables around this and stabilized it nicely such that I do not think we need to alter rehab plan. I discussed this with him last evening as well, but was not sure he would recall consider the recent surgery. PLAN: 1. DVT prophylaxis including thigh-high TEDs, SCDs, and aspirin twice a day. 2. PT/OT. Weightbearing as tolerated. Right total hip protocol. 3. Pain control, doing pretty well with current pain regimen. 4. Medical management per the medicine service. 5. Disposition: Hoping to discharge to [facility] for a brief rehab stay. SHER
--- NOTE | 2016-05-25 21:06 | Discharge Instructions ---
Discharge Instructions Date of Service May 25, 2016. Admission Reason for Admission: Right Hip Degenerative Joint Disease Discharge Discharge Diagnosis / Problem: Right Hip Replacement Discharge Goals Goal(s): Decrease discomfort, Improve function, Increase independence, Improve disease control, Therapeutic intervention Activity Recommendations Activity Level: Assistance Required Therapies: Physical Therapy, Occupational Therapy Weightbearing Status: Right weightbearing . Additional Information Patient informed of condition: Yes Advance Directives: No DNR: No Level of Care: Acute Rehab Communicable Disease: No Prognosis: Improving Instructions / Follow-Up Instructions / Follow-Up ACTIVITY RECOMMENDATIONS: Physical Therapy: * Aggressive physical therapy is not usually needed. You will learn to take care of yourself safely and walk. * Follow the "Hip Precautions Instructions." * In some cases, the outreach and education social worker at the hospital will arrange to have a therapist come to your house for the first couple of weeks to help you learn these skills. * You need to practice on your own or with the help of a family member as needed. * When you learn these skills, most of the therapy can be done on your own. Home Exercise: * You were shown a series of exercises in the hospital. Do these exercises three to four times each day including the exercises you were shown in physical therapy. Walking: * Get up and walk several times each day. For the first four weeks, try not to stand or walk for more than one hour at a time. If you do stand or walk for more than one hour, you will not hurt anything, but your leg will likely swell. * As you feel comfortable, you may change from the walker or crutches to a cane and then to independent walking. MEDICATIONS: New Medicine: * You will likely be taking one or more of these medicines: 1. Tramadol - Take, as directed, when you need it, every four to six hours to control your pain. 2. Aspirin - Thins your blood to lessen the chance of forming a blood clot. * The most common side effects of pain medicine and iron are nausea and constipation. If nausea or constipation is too much of a problem or if you have any questions about your new medicines or doses, call [facility] at [phone]. We will try to help you manage these issues. VERY IMPORTANT TO READ AND REVIEW" Pain: * The immediate post-operative period after hip replacement surgery is often quite painful. * You are given a prescription for pain medicine. You should take it, as directed, when you need it, especially before physical therapy and before going to bed. Pain that interferes with sleep is very common and can last several months. * You will likely need pain medicine for the first two to four weeks. It will not stop all of the pain. The pain will lessen and as you feel better, you may change to milder pain medicine such as Tylenol. * The most common side effects of pain medicine are nausea and constipation, so don't take more than you need. SPECIAL CARE INSTRUCTIONS: TEDs/Elastic Stockings: * The white elastic stockings help limit swelling and prevent blood clots from forming in your legs. The more you wear them, the more they work. * Wear them for six weeks. Prevention of Infection: * Take antibiotics one hour before any dental cleaning, dental work, urological procedure, gastrointestinal procedure or any invasive surgery in order to prevent your new joint from getting infected. * You may get the antibiotics from the doctor performing the procedure or you may call our office at before and we will call in a prescription to the pharmacy of your choice. Things to Watch For: * Drainage from the incision site that occurs more than one week after your surgery. * Severely increased leg pain or swelling. * Increased redness at the incision site. * Fever above 102 degrees Fahrenheit. * Unusual chest pain or shortness of breath. * Unusual pain or burning with urination. Call [facility] at with any of the above problems or if you have any questions about your medicines or recovery. FOLLOW UP VISIT: Make an appointment to see your doctor for approximately two weeks after surgery for a progress check and staple removal by calling the office at . Current Hospital Diet Patient's current hospital diet: Diabetes Type 2 Diet Discharge Diet Recommended Diet: Diabetes Type 2 Diet Procedures Procedures Performed: Right Total Hip Arthroplasty, uncemented with beaded cables times two. Pending Studies Studies pending at discharge: no Laboratory Results Hemoglobin A1c Test 05/09/16 11:08 Range/Units Estimated Average Glucose 163 mg/dl Hemoglobin A1c 7.3 H 4.5-5.6 % Medical Emergencies . Who to Call and When: Medical Emergencies: If at any time you feel your situation is an emergency, please call 911 immediately. . Non-Emergent Contact Non-Emergency issues call your: Surgeon . . "Provider Documentation" section prepared by Elan Truong. Core Measure Problem Core Measures: None
[2016-05-26] MEDS: CHECK SCOPOLAMINE PATCH PLACEMENT SCH (00:12)
[2016-05-26] MEDS: ACETAMINOPHEN 500 MG TAB PO SCH ×2 (05:44→12:48)
[2016-05-26 06:59] VITALS: BP 152/75; PULSE 91; TEMP 37.1; O2SAT 95
[2016-05-26] MEDS: FERROUS GLUCONATE 324 MG TAB PO SCH ×2 (08:32→12:47)
[2016-05-26] MEDS: DOCUSATE SODIUM 100 MG CAP PO SCH (08:33)
[2016-05-26] MEDS: SITAGLIPTIN 100 MG TAB PO SCH (08:33)
[2016-05-26] MEDS: MULTIVITAMIN TAB PO SCH (08:33)
[2016-05-26] MEDS: ASPIRIN 325 MG ECTAB PO SCH (08:33)
[2016-05-26] MEDS: PANTOprazole SOD 40 MG TAB PO SCH (08:33)
[2016-05-26] MEDS: LISINOPRIL 5 MG TAB PO SCH (08:33)
[2016-05-26] MEDS: INSULIN HUMAN REGULAR SC SCH ×2 (08:35→12:51)
--- NOTE | 2016-05-26 09:20 | PROGRESS NOTE ---
DATE: 05/26/2016 SUBJECTIVE: 80-year-old gentleman postop day 2 from right total hip replacement. He is doing pretty well. Pain seems to be a little bit better today. No chest pain or shortness of breath. Not feeling dizzy or lightheaded. OBJECTIVE: VITAL SIGNS: Temperature 37.1. Vital signs stable. PHYSICAL EXAMINATION: GENERAL: Reveals a healthy, pleasant elderly male. He is sitting up in bed, looks pretty comfortable this morning. LUNGS: Clear to auscultation. HEART: Regular rate and rhythm. ABDOMEN: Soft, nontender, nondistended. EXTREMITIES: Grossly neurovascularly intact except as follows. Examination of the right hip and leg reveals the dressing to be clean, dry and intact. Leg lengths were equal. Hip is located. He is neurologically intact. ASSESSMENT: 80-year-old gentleman postop day 2 from right total hip replacement, doing pretty well. Pain seems to be controlled. PLAN: 1. DVT prophylaxis including thigh-high TEDs, SCDs, and aspirin twice a day. 2. PT/OT. Weightbearing as tolerated. Right total hip protocol. 3. Pain control. Doing reasonably well with current pain regimen. We will have to be careful not to give him too much narcotic to avoid confusion. 4. Disposition: He is hoping to be discharged to [facility] for a brief rehab stay once medically stable.
[2016-05-26 11:26] VITALS: BP 152/75; PULSE 91; TEMP 37.1; O2SAT 95
--- NOTE | 2016-05-26 13:58 | Hospitalist Progress Note ---
Hospitalist Progress Note Date of Service May 26, 2016. Subjective Pt evaluation today including: conversation w/ patient, physical exam, chart review, review of inpatient medication list Complaining of mild to moderate pain in the posterior aspect of the right hip. He has been up moving around. He was able to ambulate in the hallways with a walker. Denies any other symptoms. Passing gas. No bowel movements yet. No nausea. No chest pain or difficulty breathing. No heart palpitations or dizziness. Additional Comments: 6 system review negative. Please see pertinent positives in the history of present illness section. Objective Vital Signs Date Time Temp Pulse Resp B/P Pulse Ox O2 Delivery O2 Flow Rate FiO2 05/26/16 11:26 37.1 91 16 95 Room Air 05/26/16 07:37 Room Air 05/26/16 06:59 37.1 91 16 152/75 95 Room Air 05/26/16 00:00 Room Air 05/25/16 23:20 36.6 84 16 156/75 97 Room Air 05/25/16 18:29 158/68 05/25/16 15:50 Room Air 05/25/16 15:09 37.1 90 18 173/77 98 Room Air Physical Exam General Appearance: no apparent distress Eyes: EOMI Neck: no JVD Respiratory/Chest: lungs clear Cardiovascular: + tachycardia (mildly tachycardic. Associated with movements. No murmur.) Abdomen: normal bowel sounds, non tender, soft Extremities: non-tender, no pedal edema Neurologic/Psychiatric: no motor/sensory deficits, oriented x 3 Skin: warm/dry Laboratory Results Last 24 Hours Test 05/25/16 16:35 05/25/16 20:57 05/26/16 06:45 05/26/16 12:23 Bedside Glucose 204 mg/dl 228 mg/dl 131 mg/dl 172 mg/dl Assessment and Plan 80-year-old male status post elective right ADRIAN 05/24 -pain management, DVT prophylaxis, PT per primary team Diabetes mellitus-BSGs stable in-house. -Continue current outpatient regimen: Glipizide extended release 10 mg twice daily, Januvia 100 mg daily -Insulin sliding scale -BSG's in the morning, in the evening and with meals Hypertension-BP slightly high but reasonable. Probably secondary to pain -Continue lisinopril 5 mg daily -Hydralazine 10 mg IV q 6 hr PRN Mild tachycardia-only tachy on exam when he was trying to get up and move around. Likely secondary to pain Agitation on 05/24 during the night-->? -happened during the last surgery over night in the hospital -no further workup recommended Stable for D/C from a medical stand point. The medicine service will sign off. Please contact the [facility] Hospitalist for any further medical concerns.
--- NOTE | 2016-06-06 18:06 | DISCHARGE SUMMARY ---
ADMITTING PHYSICIAN AND SURGEON: Dr. Truong. ADMITTING DIAGNOSIS: Right hip degenerative joint disease. SURGERY PERFORMED: Right total hip arthroplasty. SECONDARY DIAGNOSES: Include diabetes, low back pain, and mild obesity. CONSULTS: Dr. Hernandez postoperative medical management and diabetic care. HISTORY AND PHYSICAL EXAMINATION: Well documented in the patient's chart. HOSPITAL COURSE: The patient was admitted on 05/24/2016, underwent total hip arthroplasty, and tolerated the procedure well. He did have an intraoperative calcar fracture treated with 2 cerclage cables. Otherwise, there were no other complications. He was transferred to PACU postoperatively and later to the orthopedic floor for further care. He was given Ancef for antibiotic prophylaxis. J CARLOS stockings, SCDs and aspirin for DVT prophylaxis. Hemoglobin, hematocrit and vital signs were monitored during his hospital stay and remained stable. He developed some mild postoperative anemia, did not require any blood transfusions. There were no complications. By postoperative day #2, he was tolerating a diabetic diet. Pain was controlled with oral pain medicine. He was participating in physical therapy and had no signs or symptoms of deep vein thrombosis. On postop day #2, he was transferred to rehab facility in good condition. He was given printed discharge instructions including new prescriptions for extra strength Tylenol, aspirin 325 mg b.i.d., and tramadol. Continue his home medication exception of his home dose of Tylenol and aspirin which were changed. Continue physical therapy, weightbearing as tolerated. Continue J CARLOS stockings. Continue total hip precautions and follow up with Dr. Truong in 10-12 days or sooner if there are any problems or concerns.
== END 2016-05-26 14:15 | DRG 470 ==
LOC: ENRESERVTM → ENRESERVDT → C.ACU 05:03 → C.3E 06:40
PROVIDERS: ADMIT Orthopaedic Surgery Sports Medicine; ATTEND Orthopaedic Surgery Sports Medicine
PROC: 0QS604Z Reposition Right Upper Femur with Internal Fixation Device, Open Approach (ICD-10-PCS; principal; 2016-05-24 07:00)
PROC: 0SR902A Replacement of Right Hip Joint with Metal on Polyethylene Synthetic Substitute, Uncemented, Open Approach (ICD-10-PCS; principal; 2016-05-24 07:00)
DX: M16.11 Unilateral primary osteoarthritis, right hip (principal); M96.661 Fracture of femur following insertion of orthopedic implant, joint prosthesis, or bone plate, right leg; Y83.1 Surgical operation with implant of artificial internal device as the cause of abnormal reaction of the patient, or of later complication, without mention of misadventure at the time of the procedure; E11.9 Type 2 diabetes mellitus without complications; I10 Essential (primary) hypertension; R00.0 Tachycardia, unspecified; R45.1 Restlessness and agitation; Z98.1 Arthrodesis status; Z96.651 Presence of right artificial knee joint; Z87.891 Personal history of nicotine dependence; Z79.1 Long term (current) use of non-steroidal anti-inflammatories (NSAID); Z79.82 Long term (current) use of aspirin; Z79.84 Long term (current) use of oral hypoglycemic drugs; Z82.49 Family history of ischemic heart disease and other diseases of the circulatory system; Z83.3 Family history of diabetes mellitus

== ENCOUNTER → 2016-08-19 | Outpatient (CLI) | payer OTHER ==
[~2016-08-19] MED LIST changes: +ACET-1138 PO; -ASPCH81X PO; +ASPEC325 PO; -DIPH-437 PO; +ULT50X PO
[2016-08-19 12:57] LABS: HEMATOCRIT 40.8 % (42-52); MEAN CELL VOLUME 91.9 fL (80-100); MEAN CORPUSCULAR HEMOGLOBIN 31.8 pg (25-34); MEAN CORPUSCULAR HGB CONC 34.6 g/dl (32-36); MEAN PLATELET VOLUME 11.1 fL (7.4-10.4); PLATELET COUNT 187 K/uL (130-400); RED BLOOD COUNT 4.44 M/uL (4.7-6.1); WHITE BLOOD COUNT 7.89 K/uL (4.8-10.8)
[2016-08-19 13:16] LABS: CALCIUM 9.1 mg/dl (8.5-10.1)
[2016-08-19 13:19] LABS: ESTIMATED AVERAGE GLUCOSE 151 mg/dl; HA1C FLAG Normal (Normal)
[2016-08-19 13:22] LABS: ALT/SGPT 23 U/L (12-78); BLOOD UREA NITROGEN 23 mg/dl (7-18); BUN/CREATININE RATIO 18.8 (10-20); CARBON DIOXIDE 27 mmol/L (21-32); CHLORIDE 104 mmol/L (98-107); CHOLESTEROL 216 mg/dl (0-200); GLUCOSE 96 mg/dl (70-99); POTASSIUM 4.1 mmol/L (3.5-5.1); SODIUM 140 mmol/L (136-145); TRIGLYCERIDES 75 mg/dl (0-150); VERY LOW DENSITY LIPOPROT CALC 15 mg/dl
[2016-08-19 13:32] LABS: ALB/GLOB RATIO 0.9 (0.9-2); ALKALINE PHOSPHATASE 54 U/L (45-117); AST/SGOT 21 U/L (15-37); CHOLESTEROL/HDL RATIO 4.4; HDL CHOLESTEROL 49 mg/dl; LDL CHOLESTEROL CALCULATED 152 mg/dl
== END | disposition home or self-care (01) ==
LOC: C.LABPVFM 08:11
PROVIDERS: ATTEND Internal Medicine
DX: E11.9 Type 2 diabetes mellitus without complications (principal)

== ENCOUNTER → 2017-02-08 | Outpatient (CLI) | payer OTHER ==
[2017-02-08 12:43] LABS: HEMATOCRIT 43.9 % (42-52); MEAN CELL VOLUME 93.6 fL (80-100); MEAN CORPUSCULAR HGB CONC 34.2 g/dl (32-36); MEAN PLATELET VOLUME 11.2 fL (7.4-10.4); PLATELET COUNT 160 K/uL (130-400); RED BLOOD COUNT 4.69 M/uL (4.7-6.1); WHITE BLOOD COUNT 7.39 K/uL (4.8-10.8)
[2017-02-08 13:27] LABS: ALB/GLOB RATIO 1.1 (0.9-2); ALKALINE PHOSPHATASE 54 U/L (45-117); ALT/SGPT 26 U/L (12-78); AST/SGOT 19 U/L (15-37); BLOOD UREA NITROGEN 21 mg/dl (7-18); BUN/CREATININE RATIO 20.1 (10-20); CALCIUM 8.9 mg/dl (8.5-10.1); CARBON DIOXIDE 29 mmol/L (21-32); CHLORIDE 105 mmol/L (98-107); CHOLESTEROL 216 mg/dl (0-200); CHOLESTEROL/HDL RATIO 4.2; CREATININE 1.06 mg/dl (0.60-1.40); GLUCOSE 134 mg/dl (70-99); HDL CHOLESTEROL 51 mg/dl; LDL CHOLESTEROL CALCULATED 133 mg/dl; POTASSIUM 4.3 mmol/L (3.5-5.1); SODIUM 139 mmol/L (136-145); TRIGLYCERIDES 158 mg/dl (0-150); VERY LOW DENSITY LIPOPROT CALC 32 mg/dl
[2017-02-08 13:36] LABS: RATIO 24.6 mcg/mg (0-30.0)
[2017-02-08 13:42] LABS: ESTIMATED AVERAGE GLUCOSE 143 mg/dl; HA1C FLAG Normal (Normal)
== END | disposition home or self-care (01) ==
LOC: C.LABPVFM 08:52
PROVIDERS: ATTEND Internal Medicine
DX: E11.9 Type 2 diabetes mellitus without complications (principal); G25.81 Restless legs syndrome

== ENCOUNTER → 2017-07-05 | Day surgery (SDC) | payer OTHER ==
[2017-06-28 09:50] VITALS: Ht 172.7 cm; Wt 88.6 kg
[~2017-07-05] VITALS: Ht 172.7 cm; Wt 88.6 kg
[~2017-07-05] MED LIST changes: -ACET-1138 PO; +ACET-749 PO; +ASPCH81X PO; -ASPEC325 PO; +ATROPINE SULFATE 0.1 MG/ML 5ML SYR IV PRN; +BUPIVACAINE/EPINEPHRINE 0.5% MPF 1:200,000 30 ML VIAL ONE; +CEFAZOLIN 2000MG IV PUSH 15 ML IV SCH; +EYE DROPS OTC OPB; +EpHEDrine SULFATE INJ 50 MG/ML AMP IV PRN; +FENTANYL CITRATE INJ 50 MCG/1 ML 2 ML VIAL IV PRN; +FENTANYL CITRATE INJ 50 MCG/1 ML 2 ML VIAL ONE; +LACTATED RINGER'S 1000ML 1,000 ML IV SCH; +LIDOCAINE HCL 2% 2 ML VIAL (20MG/ML) ONE; +LIDOCAINE HCL 2% LOCAL 20 ML VIAL ONE; +MIDAZOLAM HCL 1 MG/ML 2ML VIAL ONE; +ONDANSETRON INJ 2 MG/ML 2 ML VIAL IV PRN; -OTC EYE DROPS OPB; +PROPOFOL IV EMULSION 10 MG/ML 20 ML VIAL ONE; +SODIUM CHLORIDE 0.9% 1000ML 1,000 ML IV SCH; -ULT50X PO; -[UNRECOGNIZED DRUG - OTHER] PO
--- NOTE | 2017-07-05 08:40 | [facility] Post Operative Brief Note ---
Immediate Operative Summary Operative Date July 05, 2017. Pre-Operative Diagnosis Right Carpal Tunnel Syndrome Post-Operative Diagnosis same Procedure(s) Performed Right Carpal Tunnel Release Surgeon Dr. Epifanoi Truong Internist Medical Doctor Md Surgeon(s) Bill Santamaria PA-C Estimated Blood Loss minimal Findings Consistent with Post-Op Diagnosis Specimens none Drains None Anesthesia Type MAC Complication(s) none Disposition Accompanied Pt To Recovery: no Disposition: Recovery Room / PACU
[2017-07-05 08:44] VITALS: TEMP 36.6
--- NOTE | 2017-07-05 08:44 | Discharge Instructions-SurgCtr ---
Discharge Instructions Date of Service July 05, 2017. Visit Reason for Visit: Right Carpal Tunnel Syndrome Discharge Discharge Diagnosis / Problem: right carpal tunnel syndrome Discharge Goals Goal(s): Decrease discomfort, Therapeutic intervention Medications Stopped Medications Name(s): asked not not take Lisinopril on D.O.S. Restart Stopped Medication(s): restart Lisinopril Activity Recommendations Activity Limitations: per Instructions/Follow-up section Anesthesia . Post Anesthesia Instructions: If you have had General Anesthesia or IV Sedation: * Do not drive today. * Resume driving when surgeon permits. * Do not make important decisions or sign legal documents today. * Call surgeon for: 1. Temperature elevations greater than 101 degrees F. 2. Uncontrollable pain. 3. Excessive bleeding. 4. Persistent nausea and vomiting. 5. Medication intolerance (nausea, vomiting or rash). * For nausea and vomiting use only clear liquids such as: tea, soda, bouillon until nausea subsides, then gradually increase diet as tolerated. * If you have any concerns or questions, call your surgeon's office. If physician is unavailable and it is an emergency, call 911 or go to the nearest emergency room. . Instructions / Follow-Up Instructions / Follow-Up MEDICATIONS: * Resume previous medications unless instructed otherwise by your surgeon. * Always take pain medication on a full stomach or with food to avoid upset stomach. * Do not drink alcohol or drive while taking narcotics. * Ibuprofen or Tylenol may be taken if narcotic not needed. SPECIAL CARE INSTRUCTIONS: __ None __ Keep extremity elevated and iced x 48 hours; apply ice 20-30 minutes 8-10 times/day. May remove at night. __ Sling __24 hrs/day __ Remove at night __ Shoulder Immobilizer __ 24 hrs/day __ Remove at night _x_ Dressing _x_ Maintain until seen in office, may shower with plastic over site __ Remove dressings in 24-48 hours and then may shower __ Cover incisions with band-aids after showering __ Do not remove steri-strips Call physician if chills or temperature rises above 102 degrees or pain unrelieved by prescribed pain medications at . . follow up in 2 weeks Diet Recommendations Home Diet: resume previous diet Procedures Procedures Performed: Right Carpal Tunnel Release Pending Studies Studies pending at discharge: no Medical Emergencies . Who to Call and When: Medical Emergencies: If at any time you feel your situation is an emergency, please call 911 immediately. . Non-Emergent Contact Non-Emergency issues call your: Surgeon . . "Provider Documentation" section prepared by Ildefonso Santamaria. .
[2017-07-05 09:16] VITALS: BP 168/82; PULSE 71; O2SAT 97
--- NOTE | 2017-07-05 09:24 | Anesthesia Progress Nt - [facility] ---
Anesthesia Post Op Note Date & Time July 05, 2017 at 09:23 Vital Signs Pain Intensity: 0 Vital Signs Past 12 Hours Date Time Temp Pulse Resp B/P (MAP) Pulse Ox O2 Delivery O2 Flow Rate FiO2 07/05/17 09:16 71 16 168/82 (110) 97 Room Air 07/05/17 08:44 36.6 75 16 178/76 (110) 97 Room Air 07/05/17 07:02 36.5 70 20 141/80 (100) 94 Room Air Notes Mental Status: alert / awake / arousable, participated in evaluation Pt Amnestic to Procedure: Yes Nausea / Vomiting: adequately controlled Pain: adequately controlled Airway Patency, RR, SpO2: stable & adequate BP & HR: stable & adequate Hydration State: stable & adequate Anesthetic Complications: no major complications apparent
--- NOTE | 2017-07-05 11:13 | OPERATIVE REPORT ---
DATE OF OPERATION: 07/05/2017 SURGEON: Elan Truong MD AUTOMOTIVE DESIGN DRAFTER: ANJUM Robles PREOPERATIVE DIAGNOSIS: Right carpal tunnel syndrome. POSTOPERATIVE DIAGNOSIS: Same. PROCEDURE PERFORMED: Right carpal tunnel release. COMPLICATIONS: None. ESTIMATED BLOOD LOSS: Minimal. TOURNIQUET TIME: Six minutes at 250 mmHg. ANESTHESIA: Local with IV sedation. OPERATIVE INDICATIONS: The patient is an 81-year-old gentleman who has had a history of right hand pain, discomfort and numbness for quite some time, described it has gotten worse. He has got to the point where he has had pain and discomfort in his entire arm and shoulder even. He had failed conservative treatment. Nerve studies revealed carpal tunnel syndrome. He elected to proceed with carpal tunnel release in hopes of alleviating some of these symptoms. He has significant underlying arthritis in his hand as well and he was noted this was not going to address that issue. OPERATIVE PROCEDURE: The patient was taken to the operating room, identified and placed on the operating table in supine position. All contact areas were appropriately padded. IV antibiotics were provided by anesthesia team. A right forearm tourniquet was placed. Some IV sedation was provided. Ten mL of 50:50 combination of 0.5% Marcaine with epinephrine and 2% lidocaine were injected in and around the proposed incision site. The right hand was then prepped and draped in usual sterile fashion. The right arm was elevated and exsanguinated with Esmarch and tourniquet was placed at 250 mmHg. A 3 cm incision was made in the palm just ulnar to the palmaris longus tendon. Blunt dissection was carried through subcutaneous tissue down to the level of the palmar fascia. The palmar fascia was incised longitudinally in line with the skin incision. The underlying transverse carpal ligament was identified. It was transected distally with use of a [place] blade knife and bluntly spread. Attention was then drawn proximally. Blunt dissection was carried out above and below the ligament proximally. The leg was then transected for a minimum distance of 3 cm proximal to the wrist flexion crease. The ligament was bluntly spread and found to be completely released. The wound was irrigated with copious amounts of normal saline. The tourniquet was then let down for a tourniquet time of 6 minutes. Hemostasis was assured with use of electrocautery. The wound was once again irrigated. The skin was closed with 5-0 nylon suture in a horizontal mattress fashion. The hand was then cleaned and dried and a sterile dressing of Xeroform, 4 x 4's, sterile cast padding and Grayson bandage were applied. The patient then transferred to the recovery room in stable condition. The patient tolerated the procedure well with no complication. All needle and sponge counts were correct at the end of the operation. I attest to the content of the Intraoperative Record and any orders documented therein. Any exception s are noted below.
== END | disposition home or self-care (01) ==
LOC: X.SURG 06:41
PROVIDERS: ATTEND Orthopaedic Surgery Sports Medicine
DX: G56.01 Carpal tunnel syndrome, right upper limb (principal); E11.9 Type 2 diabetes mellitus without complications; E78.5 Hyperlipidemia, unspecified; I10 Essential (primary) hypertension; M19.90 Unspecified osteoarthritis, unspecified site; Z88.6 Allergy status to analgesic agent; Z88.8 Allergy status to other drugs, medicaments and biological substances; Z79.82 Long term (current) use of aspirin

== ENCOUNTER 2019-05-17 08:37 | Inpatient (IN) ==
--- NOTE | 2019-04-15 10:42 | PAT Medication Instructions ---
Medication Instructions Date of Service April 15, 2019 Home Medications Medication Instructions Recorded aspirin 81 mg tablet,delayed 81 mg PO DAILY #30 tab 09/14/18 release blood sugar diagnostic #200 ea 03/28/19 glipizide 10 mg tablet 10 mg PO BID #180 tab 03/28/19 red yeast rice 600 mg capsule 600 mg PO DAILY aspirin 81 mg tablet,delayed release 81 mg PO DAILY sitagliptin 100 mg tablet 100 mg PO QAM multivitamin 1 tab PO DAILY glipizide 10 mg tablet 10 mg PO BID Cholesterol Essentials, Otc 2 tab PO DAILY losartan 25 mg PO QAM omega 8-otg-wvk-fish oil [Fish Oil] 1 cap PO DAILY ASK your prescriber and surgeon aspirin 81 mg tablet,delayed release 81 mg PO DAILY STOP taking 2 weeks before surgery (or as soon as possible if surgery is within 2 weeks) red yeast rice 600 mg capsule 600 mg PO DAILY omega 7-eny-uty-fish oil [Fish Oil] 1 cap PO DAILY DO NOT take the morning of surgery sitagliptin 100 mg tablet 100 mg PO QAM multivitamin 1 tab PO DAILY glipizide 10 mg tablet 10 mg PO BID Cholesterol Essentials, Otc 2 tab PO DAILY losartan 25 mg PO QAM Take evening before surgery glipizide 10 mg tablet 10 mg PO BID Other Notes If you have any questions please call us at [phone] or [phone] or [phone] or [phone]
--- NOTE | 2019-04-15 12:52 | Anesthesiology Consultation ---
Date of Service April 15, 2019 Assessment & Plan (1) Encounter for pre-operative examination: CHECK BSG AM DOS Cardiology clearance 05/07/2019: "Pending the results of the echocardiogram, the patient is at an acceptable risk to proceed with upcoming surgery without any additional cardiovascular testing or intervention. Will arrange a follow-up visit a few weeks after surgery, though, to discuss initiating medical therapy such as a beta pavel in order to reduce the amount of ectopy he is having." Echo 05/08/19 WNL. Chart Review Chart Review: Acceptable Risk for Surgery and Patient seen in Pre Admission Testing Teaching & Discussion Instructed NPO after midnight before surgery, except medications with 15 cc of water. Medication instructions provided according to the PAT guidelines. History Surgery Operation Date: 05/17/19 13:20 Proposed Procedures p Right Reverse Total Shoulder Arthroplasty - Tomy Ravi DO Height/Weight Height: 5 ft 8 in Weight: 83.7 kg Allergies Allergy/AdvReac Type Severity Reaction Status Date / Time meloxicam AdvReac Unknown PT NOT SURE Verified 05/08/19 09:58 NSAIDS (Non-Steroidal AdvReac Unknown GI UPSET Verified 05/08/19 09:58 Anti-Inflamma Medications Home Medications Medication Instructions Recorded Confirmed Last Taken red yeast rice 600 mg capsule 600 mg PO DAILY cap 08/13/18 05/08/19 Unknown aspirin 81 mg tablet,delayed 81 mg PO DAILY #30 tab 09/14/18 05/08/19 Unknown release sitagliptin 100 mg tablet 100 mg PO QAM 02/04/19 05/08/19 Unknown multivitamin 1 tab PO DAILY 03/08/19 05/08/19 Unknown blood sugar diagnostic #200 ea 03/28/19 05/08/19 Unknown glipizide 10 mg tablet 10 mg PO BID #180 tab 03/28/19 05/08/19 Unknown Cholesterol Essentials, Otc 2 tab PO DAILY 04/05/19 05/08/19 Unknown losartan 25 mg PO QAM 04/05/19 05/08/19 Unknown omega 2-sbk-xtm-fish oil 1,200 mg 1 cap PO DAILY cap 05/08/19 05/08/19 Unknown (144 mg-216 mg) capsule Past Medical History Medical History Arthritis Diabetes History of anesthesia reaction HICCUPS FOR 1 MON AFTER (AFTER MOST RECENT BACK SURGERY: [facility]) History of high blood pressure Hypercholesterolemia (Chronic) CONTROLLED WITH MEDS Exercise / Class Metabolic Activity II 4-5 Yardwork/Stairs/Walk up hill (Denies CP or SOB with 1 FOS, does basement stairs a couple times per week without issues.) Goes to [facility] few times per week and does gentle cardio machines and goes to a senior exercise class. Past Family History Family History Mother Diabetes Father Stroke syndrome Brother Asthma Emphysema, unspecified Denies family history of Prostate cancer Colorectal cancer Past Surgical History Surgical History History of back surgery X2 History of colonoscopy History of foot surgery LEFT, HEEL History of right hip replacement History of total right knee replacement Past Anesthesia History No Hx of Anesthesia Complications (other than prolonged hiccups) and No Family Hx of Anesthesia Complications History of PONV No Hx of PONV and No Hx of Motion Sickness Social History Smoking Status: Never smoker tobacco type: cigars Do You Dip or Chew Tobacco: No Smoking End Date: 10-12 YRS AGO Hx Alcohol Use: Yes ("VERY LITTLE") Alcohol type: beer alcohol intake frequency: holidays/special occasions only Hx Substance Use: No substance use type: does not use Review of Systems Pt denies any recent chest pain, shortness of breath, palpitations, fever or URI. +cough, chronic, mild Physical Exam Vital Signs BP: 122/68 P: 79bpm SPO2: 95% RA T: 98.1 F R: 18 ENMT Mouth: no dental restorations, no chipped teeth and no loose teeth Thyromental Distance: < 3.5 Finger Breadths (2.5) Mallampati Class: II Neck normal visual inspection and + limited neck extension Respiratory normal respiratory effort Auscultation: lungs clear to auscultation bilaterally Cardiovascular Rate/Rhythm: regular rate; + abnormal rhythm (irreg irreg) Heart Sounds: no murmur Vessels: no carotid bruit Testing Laboratory Results 04/15/19 13:02 04/15/19 13:02 PT 10.3 Seconds (9.0-12.0) 04/15/19 13:02 INR 1.0 (0.9-1.1) 04/15/19 13:02 APTT 25.6 Seconds (21.0-31.0) 04/15/19 13:02 Hemoglobin A1c 7.6 % (4.5-5.6) H 04/15/19 13:02 Blood Type A Negative 04/15/19 13:02 Antibody Screen NEGATIVE 04/15/19 13:02 Electrocardiogram Date: 04/15/19 Sinus rhythm at 87 bpm with frequent PVCs in a pattern of trigeminy. Otherwise normal EKG. When compared with EKG of 08/23/2017, PVCs are now present. PACs are no longer present borderline criteria for inferior infarct are no longer present. Chest X-Ray Date: 04/15/19 Findings: + NAD Mild cardiac enlargement. Echocardiogram Date: 05/08/19 EF: 55-60% There is mild concentric LVH. LV size wall motion and systolic function are normal. Mild to moderate aortic sclerosis. No hemodynamically significant valvular aortic stenosis. Mild to moderate mitral annular calcification.
--- NOTE | 2019-04-15 13:39 | XRay Report ---
TWO VIEW CHEST CLINICAL HISTORY: Preoperative examination. FINDINGS: PA and lateral chest radiographs are compared to study dated 06/01/2018. Correlation is made with chest CT dated 08/23/2017. The heart is mildly enlarged noting atherosclerotic calcification of the thoracic aorta. The pulmonary vasculature is noncongested. There is bibasilar scarring/atelectasi s. No airspace consolidation or pleural effusion is identified. Scattered calcified granulomas are si milar to previous. There is no pneumothorax. The skeletal structures are osteopenic. The bony thorax appears intact. Degenerative changes noted in the shoulders and thoracic spine. Calcific tendinopathy is seen in the left shoulder. IMPRESSION: Mild cardiac enlargement with no active disease in the chest. ACT 112: Negative or not required by law. Electronically signed by: Matt Fagan M.D. 04/15/2019 1:38 PM
--- NOTE | 2019-04-15 13:50 | Electrocardiogram Report ---
Test Reason : Blood Pressure : / mmHG Vent. Rate : 087 BPM Atrial Rate : 087 BPM P-R Int : 140 ms QRS Dur : 086 ms QT Int : 356 ms P-R-T Axes : 073 029 057 degrees QTc Int : 428 ms Sinus rhythm with frequent Premature ventricular complexes in a pattern of trigeminy Otherwise normal ECG When compared with ECG of 23-AUG-2017 21:34, Premature ventricular complexes are now Present Premature atrial complexes are no longer Present Borderline criteria for Inferior infarct are no longer Present Confirmed by Guero Elena ([id number]) on 04/15/2019 1:49:49 PM Referred By: Tomy Ravi Confirmed By:Guero Elena
[2019-04-15 15:50] LABS: Basophils # (auto) 0.02 K/uL (0-0.2); Basophils % (auto) 0.3 %; Eosinophils # (auto) 0.09 K/uL (0-0.5); Eosinophils % (auto) 1.2 %; Hematocrit (blood only) 41.3 % (42-52); Hemoglobin 14.1 g/dL (14.0-18.0); Immature Granulocytes # (auto) 0.02 K/uL (0.00-0.02); Immature Granulocytes % (auto) 0.3 %; Lymphocytes # (auto) 1.91 K/uL (1.2-3.4); Lymphocytes % (auto) 26.5 %; Mean Corpuscular Hemoglobin 31.8 pg (25-34); Mean Corpuscular Hgb Conc 34.1 g/dL (32-36); Mean Corpuscular Volume 93.2 fL (80-100); Mean Platelet Volume 11.2 fL (7.4-10.4); Monocytes # (auto) 0.95 K/uL (0.11-0.59); Monocytes % (auto) 13.2 %; Neutrophils # (auto) 4.22 K/uL (1.4-6.5); Neutrophils % (auto) 58.5 %; Platelet Count 163 K/uL (130-400); RDW Coefficient of Variation 13.5 % (11.5-14.5); RDW Standard Deviation 46.1 fL (36.4-46.3); Red Blood Count 4.43 M/uL (4.7-6.1); White Blood Count 7.21 K/uL (4.8-10.8)
[2019-04-15 16:09] LABS: Partial Thromboplastin Ratio 0.9; Partial Thromboplastin Time 25.6 Seconds (21.0-31.0); Prothrombin Time 10.3 Seconds (9.0-12.0)
[2019-04-15 16:13] LABS: BUN Creatinine Ratio 18.1 (10-20); Calcium 9.2 mg/dl (8.5-10.1); Creatinine Clr Calc Pharmacy 51.8 ml/min; Est GFR (African American) 67.6; Est GFR (Non-African American) 58.3; Potassium 4.6 mmol/L (3.5-5.1)
[2019-04-16 05:38] LABS: Estimated Average Glucose 171 mg/dl; Hemoglobin A1C 7.6 % (4.5-5.6)
--- NOTE | 2019-05-17 06:50 | History & Physical Report ---
Date of Service May 17, 2019 Assessment & Plan (1) Osteoarthritis of right shoulder: We will proceed with a right reverse shoulder arthroplasty. Postoperatively he will be placed in a sling and kept overnight in the hospital for postoperative medical management. He plans to use [employer] upon discharge. Carlene is an increased risk for a joint replacement procedure. He is diabetic and his most recent hemoglobin A1c was 7.6. This puts him at increased risk for wound complications and infection. His sugars will have to be managed closely postoperatively. Present on Admission?: Yes History of Present Illness Chief Complaint: Primary osteoarthritis of the right shoulder Primary Care Provider: Rafat Hernandez MD Carlene is a pleasant 83-year-old male who is been dealing with chronic increasing right shoulder pain. X-rays and clinical examination have been diagnostic for advanced osteoarthritis of the right shoulder. He has very poor function with his right arm. Given his age and his poor function, he has elected to proceed with a right reverse shoulder arthroplasty. Allergies Allergy/AdvReac Type Severity Reaction Status Date / Time meloxicam AdvReac Unknown PT NOT SURE Verified 05/08/19 09:58 NSAIDS (Non-Steroidal AdvReac Unknown GI UPSET Verified 05/08/19 09:58 Anti-Inflamma Home Medications Home Medications Medication Instructions Recorded Confirmed Type red yeast rice 600 mg capsule 600 mg PO DAILY cap 08/13/18 05/08/19 History aspirin 81 mg tablet,delayed 81 mg PO DAILY #30 tab 09/14/18 05/08/19 Rx release sitagliptin 100 mg tablet 100 mg PO QAM 02/04/19 05/08/19 History multivitamin 1 tab PO DAILY 03/08/19 05/08/19 History blood sugar diagnostic #200 ea 03/28/19 05/08/19 Rx glipizide 10 mg tablet 10 mg PO BID #180 tab 03/28/19 05/08/19 Rx Cholesterol Essentials, Otc 2 tab PO DAILY 04/05/19 05/08/19 History losartan 25 mg PO QAM 04/05/19 05/08/19 History omega 7-bbb-but-fish oil 1,200 mg 1 cap PO DAILY cap 05/08/19 05/08/19 History (144 mg-216 mg) capsule Past Med/Surg History Medical History Arthritis Diabetes History of high blood pressure Hypercholesterolemia (Chronic) CONTROLLED WITH MEDS Surgical History History of anesthesia reaction HICCUPS FOR 1 MON AFTER (AFTER MOST RECENT BACK SURGERY: [facility]) History of back surgery X2 History of colonoscopy History of foot surgery LEFT, HEEL History of right hip replacement History of total right knee replacement Family History Mother Diabetes Father Stroke syndrome Brother Asthma Emphysema, unspecified Denies family history of Prostate cancer Colorectal cancer Social History Preferred Language: Amharic Communication Ability: Effective Hearing Ability: Normal Boom Crane Operator Required: No Beliefs That Will Affect Care: Taoist Taoist Beliefs: MORAVIAN marital status: / Current Living Situation: Family Current Living Situation Comment: SON AND DAUGHTER LIVE WITH PT current occupational status: retired Feels Safe at Home: Yes Smoking Status: Never smoker Tobacco Type: cigars ; Age Started Using Tobacco: 19 ; Age Quit Using Tobacco: 63 ; Hx Alcohol Use: Yes ("VERY LITTLE") Alcohol type: beer Alcohol Intake Frequency: Holidays/Special Occasions Hx Substance Use: No Seatbelt Use: always Sunscreen Use: No Review of Systems Review of Systems: All systems reviewed & are unremarkable except as noted in HPI & below Physical Exam Constitutional: WD/WN, vitals as above Eyes: PERRL, conjunctivae normal, anicteric sclerae ENMT: external ear and nose normal, oropharynx normal Neck: trachea midline, no thyromegaly Respiratory: normal respiratory effort Cardiovascular: RRR, no murmur, no edema Gastrointestinal (Abdomen): normal bowel sounds, soft, nontender, no hepatosplenomegaly Musculoskeletal: Physical examination of the right shoulder reveals decreased range of motion and crepitis throughout. There is good strength with full can testing and external rotation. There is tenderness palpation along the anterior glenohumeral joint line. The right upper extremity is neurovascularly intact. Psychiatric: A+Ox3, euthymic affect Results & Data Diagnostic Findings Radiographs of the right shoulder show osteoarthritis of the glenohumeral joint. There is joint space narrowing, osteophyte formation, and [id number] articulation. PG Care Time/CCT Total # of Minutes Spent Total Time Spent with Patient: Total time spent is greater than 50% in coordination of care (as documented) at patient's floor/unit and/or counseling patient: Coding Level of Care Code 11658 Initial Inpt Care Lvl 3 Diagnoses Osteoarthritis of right shoulder M19.011
[~2019-05-17 08:37] MED LIST changes: -ACET-749 PO; +ACETAMINOPHEN 500 MG TAB PO SCH; -ASPCH81X PO; -ATROPINE SULFATE 0.1 MG/ML 5ML SYR IV PRN; +BUPIVACAINE 0.5 % 5 MG/1 ML PF 10ML VIAL ONE; -BUPIVACAINE/EPINEPHRINE 0.5% MPF 1:200,000 30 ML VIAL ONE; +CEFAZOLIN 2000MG 2,000 MG/15 ML SYR IV SCH; -CEFAZOLIN 2000MG IV PUSH 15 ML IV SCH; -EYE DROPS OTC OPB; -EpHEDrine SULFATE INJ 50 MG/ML AMP IV PRN; +FAMOTIDINE 20 MG TAB PO SCH; -FENTANYL CITRATE INJ 50 MCG/1 ML 2 ML VIAL IV PRN; -FENTANYL CITRATE INJ 50 MCG/1 ML 2 ML VIAL ONE; +GABAPENTIN 300 MG CAP PO SCH; -GLIP-199 PO; -LACTATED RINGER'S 1000ML 1,000 ML IV SCH; -LIDOCAINE HCL 2% 2 ML VIAL (20MG/ML) ONE; -LIDOCAINE HCL 2% LOCAL 20 ML VIAL ONE; -LISI-729 PO; +LR 15ML/HR IV SCH; +LR 60ML/HR IV SCH; -MIDAZOLAM HCL 1 MG/ML 2ML VIAL ONE; -MULT-506 PO; -OMEG10007 PO; -ONDANSETRON INJ 2 MG/ML 2 ML VIAL IV PRN; -PROPOFOL IV EMULSION 10 MG/ML 20 ML VIAL ONE; -REDCAP2 PO; +ROPIVACAINE 0.5% HCL/PF 150 MG, BUPIVACAINE 0.5% MPF 30 ML, EPINEPHrine 30MG/30ML (OR U... INSTIL SCH; -SITA100T3 PO; -SODIUM CHLORIDE 0.9% 1000ML 1,000 ML IV SCH; +TRANEXAMIC ACID / 0.7% NACL 1,000 MG/100 ML BAG IV SCH; +dexAMETHasone 4 MG TAB PO SCH
[2019-05-17] MEDS ORDERED: LIDOCAINE HCL 2% 2 ML VIAL/AMP(20MG/ML) INFIL ONE (09:24)
[2019-05-17] MEDS ORDERED: DEXAMETHASONE SOD INJ 4 MG/ML VIAL ONE (09:24)
[2019-05-17] MEDS ORDERED: fentaNYL citrate 100 MCG/2 ML VIAL ONE ×2 (09:24→11:38)
[2019-05-17] MEDS ORDERED: MIDAZOLAM HCL 1 MG/ML 2ML VIAL ONE (09:24)
[2019-05-17] MEDS ORDERED: PROPOFOL IV EMULSION 10 MG/ML 20 ML VIAL IV ONE (09:24)
[2019-05-17] MEDS ORDERED: ONDANSETRON INJ 2 MG/ML 2 ML VIAL ONE ×2 (09:24→12:02)
[2019-05-17] MEDS: TRANEXAMIC ACID / 0.7% NACL 1,000 MG/100 ML BAG IV SCH ×2 (09:32→10:55)
[2019-05-17] MEDS ORDERED: ORTHO JOINT ANESTHETIC ONE (10:13)
[2019-05-17] MEDS ORDERED: LABETALOL HCL IV 5 MG/ML 20ML IV PRN (10:53)
[2019-05-17] MEDS ORDERED: HYDROmorphone INJ 1 MG/ML SYRINGE IV PRN (10:53)
[2019-05-17] MEDS ORDERED: ONDANSETRON INJ 2 MG/ML 2 ML VIAL IV PRN ×2 (10:53→14:33)
[2019-05-17] MEDS ORDERED: ATROPINE SULFATE 0.1 MG/ML 10ML SYR IV PRN (10:53)
[2019-05-17] MEDS ORDERED: PHENYLEPHRINE 100MCG/ML 5ML SYR ONE (11:46)
[2019-05-17] MEDS ORDERED: ePHEDrine sulfate 50 MG/ML SYR ONE (11:46)
[2019-05-17] MEDS ORDERED: NEOSTIGMINE METHYLSULFATE 5 MG/5 ML SYR ONE (12:00)
[2019-05-17] MEDS ORDERED: GLYCOPYRROLATE 0.2 MG/ML VIAL ONE ×2 (12:00→12:23)
[2019-05-17] MEDS ORDERED: LARYING-O-JET KIT (LTA) ONE (12:00)
[2019-05-17] MEDS ORDERED: ROCURONIUM BROMIDE 10 MG/ML 5 ML VIAL ONE (12:00)
--- NOTE | 2019-05-17 12:28 | Operative Report ---
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 He had very limited function of his right shoulder. X-rays and clinical examination were diagnostic for advanced osteoarthritis of the right shoulder. After failing extensive conservative treatment, he elected proceed with a reverse right shoulder arthroplasty. We chose to do a reverse given his age and his poor function. Description of Procedure A CPT code modifier 59: The long head of the biceps tendon was enlarged and inflamed consistent with tendinopathy. A tenodesis was opted. This was a separate and distinct portion of the procedure. For these reasons, a CPT code modifier 59 will be added to this case. Implants used: I used a [employer] Comprehensive reverse total shoulder arthroplasty system with a size 10 press fit mini humeral stem, a standard humeral tray and a standard humeral bearing, a 28 mm standard baseplate with a 6.5 mm central screw and superior and inferior locking screws, and a size 40 mm eccentric glenosphere. Carlene arrived at [facility] for the above procedure. He was seen in the preoperative holding area and the operative extremity was identified and signed. He was given a preoperative antibiotic, TXA, and an interscalene nerve block. He was taken back to the operating room, laid on table in supine position, and put under general anesthesia. He was then put into the beachchair position. The shoulder was then prepped and draped in sterile fashion. A timeout was done and the patient and the operative extremity was properly identified. A deltopectoral approach was used. Dissection was taken down through the fascia and the deltoid was retracted laterally and the conjoined tendon was retracted medially. The anterior shoulder was exposed. The biceps groove was opened up and the biceps tendon was examined extensively. The biceps tendon demonstrated enlargement and inflammatory changes consistent with longstanding inflammation in the context of osteoarthritis and cuff arthropathy. The long head of the bic eps tendon was then tenodesed to the upper border of the pectoralis major. This was a separate and distinct portion of the procedure. The subscapularis was then directly released off the lesser tuberosity with a peel technique. The inferior capsule was released and the humeral head was dislocated. A canal finding reamer was sent down the center of the humeral canal. Sequential reaming up to a size 10 reamer was done. Off that reamer, a proximal humeral resection guide was placed. The proximal humerus was resected at 135 of inclination and 25 of retroversion. Osteophytes were then removed and the glenoid was exposed. Time was spent doing a complete capsular and labral release. The glenoid guide was then placed in the inferior aspect of the glenoid. A 3.2 mm Steinmann pin was then placed into the glenoid vault at 10 of inclination. The glenoid baseplate was then reamed. The final size 28 mm baseplate was then impacted in the place. A 6.5 mm central screw was then placed followed by superior and inferior locking screws. A 40 mm eccentric glenosphere was then impacted into place. Surrounding soft tissues were then injected with 100 cc an orthopedic pain control cocktail. The proximal humerus was then exposed. Sequential broaching of the humerus up to a size 10 broach was done. Off that broach a standard humeral tray was trialed. The shoulder was then reduced, brought through a full range of motion, and felt to be stable. The shoulder was then dislocated and the broach was removed. The final size 10 mini press-fit humeral stem was then impacted into place. A standard humeral bearing was then snapped onto a standard humeral tray. The humeral tray was then impacted onto the humeral stem. The shoulder was once again reduced, brought through a full range of motion, and felt to be stable. The subscapularis was then tenodesed back to the lesser tuberosity with transosseous FiberWire sutures and side to side sutures with the arm in 45 of external rotation. A dilute betadyne lavage was then done for 3 minutes. The joint was then irrigated with normal saline solution. Hemostasis was obtained. The interval was closed with 2-0 Vicryl suture. The skin was then closed with 2-0 Vicryl and kevin. A soft dressing was placed and the arm was rested in a regular arm sling. He was then extubated and transferred to a hospital bed. He taken to the postanesthesia care unit in stable condition. He tolerated the procedure well. Tomy Hopkins PA-C, was present for the entire procedure. He was critical for patient positioning, prepping, draping, retraction exposure, wound closure and application of sterile dressing. I attest to the content of the Intraoperative Record and any orders documented therein. Any exceptions are noted below.
--- NOTE | 2019-05-17 13:25 | XRay Report ---
XR shoulder RT min 2V routine CLINICAL HISTORY: Post shoulder surgery postoperative COMPARISON: None. DISCUSSION: Anatomic alignment post right shoulder total arthroplasty. Good contact between prostheti c and underlying bone. Expected postoperative soft tissue change IMPRESSION: Anatomic alignment post total right shoulder arthroplasty. ACT 112: Negative or not required by law. The above report was generated using voice recognition software. It may contain grammatical, syntax or spelling errors. Electronically signed by: Andres Ruffin M.D. 05/17/2019 1:24 PM
--- NOTE | 2019-05-17 14:16 | Anesthesiology Progress Note ---
Date of Service May 17, 2019 Anesthesia Post Procedure Vital Signs Vital Signs: Temp Pulse Pulse Resp BP BP Pulse Ox 05/17/19 13:50 88 20 152/81 H 94 05/17/19 13:40 36.7 C 94 H 21 139/85 94 05/17/19 13:30 91 H 22 147/99 H 95 05/17/19 13:20 84 21 148/80 H 96 05/17/19 13:10 84 21 149/101 H 96 05/17/19 13:00 85 16 161/108 H 96 05/17/19 12:51 36.3 C L 94 H 14 157/90 H 94 05/17/19 09:14 36.4 C L 80 20 183/83 H 95 Transfer of Care Handoff Completed per policy Notes Mental Status: alert / awake / arousable Patient Amnestic to Procedure: Yes Nausea / Vomiting: adequately controlled Pain: adequately controlled Airway Patency, RR, SpO2: stable & adequate BP & HR: stable & adequate Hydration State: stable & adequate Anesthetic Complications: no major complications apparent
[2019-05-17] MEDS ORDERED: MAGNESIUM HYDROXIDE SUSP 30 ML UDC PO PRN (14:33)
[2019-05-17] MEDS ORDERED: bisacodyL 10 MG SUPP PR PRN (14:33)
[2019-05-17] MEDS ORDERED: OXYCODONE HCL IR 5 MG TAB (IMMEDIATE RELEASE) PO PRN (14:33)
[2019-05-17] MEDS ORDERED: SODIUM CHLORIDE 0.9% 1000ML 1,000 ML IV SCH (14:33)
[2019-05-17] MEDS ORDERED: HYDROmorphone INJ 0.5 MG/0.5 ML SYR IV PRN (14:33)
[2019-05-17] MEDS ORDERED: NALOXONE HCL 0.4 MG/1 ML VIAL/CARP IV PRN (14:33)
[2019-05-17] MEDS ORDERED: METOCLOPRAMIDE HCL INJ 5 MG/ML 2 ML VIAL IV PRN (14:33)
[2019-05-17] MEDS ORDERED: PHARMACY GLYCEMIC MGMT CONSULT PRN (14:58)
[2019-05-17] MEDS: ACETAMINOPHEN 500 MG TAB PO SCH ×2 (15:13→21:45)
[2019-05-17] MEDS ORDERED: GLUCOSE 40% GEL 15 GM TUBE PO PRN (15:15)
[2019-05-17] MEDS ORDERED: GLUCAGON FOR INJ 1 MG VIAL SQ PRN (15:15)
[2019-05-17] MEDS ORDERED: NovoLIN-N (NPH) PER UNIT CHARGE SQ ONE ×2 (15:15)
[2019-05-17] MEDS ORDERED: GLUCOSE 10 TABS/TUBE PO PRN (15:15)
[2019-05-17] MEDS ORDERED: CARBOHYDRATES FOR HYPOGLYCEMIA PO PRN (15:15)
[2019-05-17] MEDS ORDERED: DEXTROSE 50% 50 ML SYRINGE IV PRN (15:15)
--- NOTE | 2019-05-17 15:32 | Pharmacy Report ---
Glycemic Control Consultation - Date of Service May 17, 2019 - Scope Scope: Glycemic Pharmacist consulted for glycemic control and to write orders per [facility] inpatient glycemic control protocol. - Objective Weight: 85.445 kg Accuchecks BSG (last 24hrs): 05/17/19 05/17/19 09:23 13:01 POC Glucose 128 H 179 H HbA1c: Hemoglobin A1c 7.6 % (4.5-5.6) H 04/15/19 13:02 - Recent Pertinent Medications Outpatient Anti-diabetic Regimen: * Glipizide 10 mg BID * Januvia 100 mg qAM * A1c = 7.6 % 04/15/19 Risk Factors for Insulin Resistance: * Steroids: Decadron 8 mg po preop, 4 mg IV intraop and 4mg topical in ortho injection * Recent Surgery: POD 0 s/p shoulder arthroplasty * Diet: NPO -> T2DM - Assessment & Plan Assessment & Plan: ASSESSMENT: * 83 y/o male admitted s/p R shoulder arthroplasty. PMH pertinent for T2DM. * Pt is maintained on oral antidiabetic agents as an outpatient * Oral agents are not recommended for inpatient use d/t drug interactions, changing PO intake, and difficulty titrating for acute hyper/hypoglycemia. ADA recommends re-initiating outpatient oral agents 1-2 days prior to discharge if/when appropriate if they were held on admission. * Will hold oral agents for admission and utilize SQ basal bolus insulin regimen which is the recommended regimen for inpatient glycemic control. * Will initiate weight based insulin dosing for insulin maria luisa patient and titrate based on BSG trends. * Will utilize NPH to obtain more rapid BSG control and be aggressive with Novolog parameters in the setting of periop steroids. PLAN FOR INPATIENT GLYCEMIC CONTROL: * Holding outpatient oral diabetes medications * Basal insulin * NPH 30 units (~0.4 units/kg) x 1 * Further basal dosing will need to be determined tomorrow. Anticipate maybe 10-15 units BID due to patient requiring 2 oral agents at home. * Bolus insulin - continue these tightened parameters through lunch tomorrow * NovoLog per scale ACHS or Q6hrs while NPO * Goal Range: Low 110 mg/dL - High 140 mg/dL * Correction Factor: 20 mg/dL/unit * Nutritional / Prandial insulin per carb ratio of 1 unit per 6 grams CHO consumed Discharge Recommendations: * A1c = 7.6% on 04/15/19 * Goal A1c < 8% based on age/comorbidities * Recommend to continue outpatient regimen on discharge Thank you.
[2019-05-17] MEDS ORDERED: INSULIN ASPART 100 UNITS/ML 3 ML PEN SC ONE (15:45)
[2019-05-17] MEDS: INSULIN ASPART 100 UNITS/ML 3 ML PEN SC SCH ×2 (19:15→22:22)
[2019-05-17] MEDS: CEFAZOLIN 2000MG 2,000 MG/15 ML SYR IV SCH (19:25)
[2019-05-17] MEDS ORDERED: SENNA 8.6 MG TAB PO SCH (21:00)
[2019-05-17] MEDS: DOCUSATE SODIUM 100 MG CAP PO SCH (21:45)
[2019-05-18] MEDS: CEFAZOLIN 2000MG 2,000 MG/15 ML SYR IV SCH (02:01)
[2019-05-18] MEDS: ACETAMINOPHEN 500 MG TAB PO SCH (05:53)
[2019-05-18 06:02] LABS: Hematocrit (blood only) 36.5 % (42-52); Hemoglobin 12.6 g/dL (14.0-18.0); Immature Granulocytes # (auto) 0.04 K/uL (0.00-0.02); Immature Granulocytes % (auto) 0.3 %; Lymphocytes # (auto) 1.12 K/uL (1.2-3.4); Lymphocytes % (auto) 7.7 %; Mean Corpuscular Hemoglobin 31.9 pg (25-34); Mean Corpuscular Hgb Conc 34.5 g/dL (32-36); Mean Corpuscular Volume 92.4 fL (80-100); Mean Platelet Volume 11.2 fL (7.4-10.4); Monocytes # (auto) 1.12 K/uL (0.11-0.59); Monocytes % (auto) 7.7 %; Neutrophils # (auto) 12.32 K/uL (1.4-6.5); Neutrophils % (auto) 84.3 %; Platelet Count 143 K/uL (130-400); RDW Coefficient of Variation 13.1 % (11.5-14.5); RDW Standard Deviation 44.3 fL (36.4-46.3); Red Blood Count 3.95 M/uL (4.7-6.1)
[2019-05-18 06:31] LABS: BUN Creatinine Ratio 20.9 (10-20); Calcium 8.6 mg/dl (8.5-10.1); Creatinine Clr Calc Pharmacy 50.1 ml/min; Est GFR (African American) 64.2; Est GFR (Non-African American) 55.4; Potassium 4.5 mmol/L (3.5-5.1)
--- NOTE | 2019-05-18 07:34 | Orthopedic Progress Note ---
Date of Service May 18, 2019 Assessment & Plan (1) History of reverse total replacement of right shoulder joint: Overall he is doing very well. He is not having much pain in the right shoulder. He will be seen by physical therapy this morning for ambulation and range of motion exercises. He can be discharged home later today. He will follow-up with orthopedics in 2 weeks. Present on Admission?: Yes Broderick Concepcion was seen and examined at bedside this morning. Overall he is doing very well. He is not having much pain in the right shoulder. He was able to get some sleep last night. He has no complaints. Physical Exam Musculoskeletal: On physical examination of the right shoulder, the dressing is clean and dry. He is wearing his sling as instructed. He still does not have any motor function of his right hand and he still has numbness in his right hand. The block is still working. Results & Data ([facility]) Vital Signs (Past 12 Hours) Vital Signs Temp Pulse Resp BP Pulse Ox 05/18/19 07:25 36.8 C 80 16 111/65 80 L 05/18/19 03:05 36.7 C 87 18 148/79 H 91 05/17/19 23:30 36.4 C L 87 18 151/69 H 93 05/17/19 20:07 36.8 C 103 H 18 128/69 95 Laboratory Results H & H 04/15/19 05/18/19 Range/Units 13:02 05:23 Hgb 14.1 12.6 L (14.0-18.0) g/dL Hct 41.3 L 36.5 L (42-52) % Coagulation 04/15/19 Range/Units 13:02 INR 1.0 (0.9-1.1) Diagnostic Findings Postoperative x-rays of the right shoulder show the prosthesis to be in anatomic alignment without any evidence of fracture, dislocation, or loosening. PG Care Time/CCT Total # of Minutes Spent Total Time Spent with Patient: Total time spent is greater than 50% in coordination of care (as documented) at patient's floor/unit and/or counseling patient: Coding Level of Care Code None Diagnoses History of reverse total replacement of right shoulder joint Z98.890
--- NOTE | 2019-05-18 07:36 | Discharge Summary ---
Date of Service May 18, 2019 Admission HPI Per Admitting Provider Carlene is a pleasant 83-year-old male who is been dealing with chronic increasing right shoulder pain. X-rays and clinical examination have been diagnostic for advanced osteoarthritis of the right shoulder. He has very poor function with his right arm. Given his age and his poor function, he has elected to proceed with a right reverse shoulder arthroplasty. Principal Diagnosis Right reverse shoulder arthroplasty Discharge Data Allergies Allergy/AdvReac Type Severity Reaction Status Date / Time NSAIDS (Non-Steroidal AdvReac Mild GI UPSET Verified 05/17/19 10:56 Anti-Inflamma meloxicam AdvReac Unknown PT NOT SURE Verified 05/17/19 09:09 Consultations 05/17/19 14:33 Consult Case Management - Discharge Planning Routine Procedures Performed Operation Date: 05/17/19 11:30 Actual Procedures p Right Reverse Total Shoulder Arthroplasty(Right) - Tomy Ravi DO Ordered Studies 05/17/19 05:00 US - OR guided needle placemen Routine Hospital Course (1) History of reverse total replacement of right shoulder joint: On May 17, 2019 Carlene arrived at [facility] and underwent a right reverse shoulder arthroplasty without complication. He had a general anesthetic and a right interscalene nerve block. Postoperatively he was placed in an arm sling and transferred to the general orthopedic floors. His hospital course was uneventful. On postop day #1 his H&H was stable and his pain was well controlled. He was able to participate well with physical therapy doing ambulation and range of motion exercises. He was then discharged home. He will follow-up with orthopedics in 2 weeks. Total Time Total Time Spent Total Time Spent (In Minutes): 20 Discharge Plan Discharge Items Patient Disposition: Home - Home Health Services Reason For Visit: Right Shoulder Degenerative Joint Disease Discharge Diagnosis: Right reverse shoulder arthroplasty Activity: As commented below Non-emergency contact: Surgeon Call non-emergency contact if: your wound has increased redness and your wound has increased drainage Follow-up/Referrals: Rafat Hernandez III, MD [Primary Care Provider] - Diet: Regular Addtl Attending Provider Instructions: Activity and Therapy Recommendations: * If you are using [facility] then therapy will be provided at your home until they feel you have accomplished all of your goals. * If you are using [facility] then Physical Therapy will be provided until they feel you are ready to start Outpatient Physical Therapy. * If you are not using home therapy then Outpatient Physical Therapy should start about 3-5 days from your day of surgery. Therapy will last about 8-12 weeks * Wear your sling for 3 weeks, unless otherwise instructed. You may remove your sling to shower and to dress, but otherwise, you should be in your sling at all times, including while sleeping * The shoulder replacement is very stable and you can use your hand while in the sling * You were shown a series of exercises in the hospital. Do these exercises daily including the exercises you were shown in physical therapy. Medications: * Narcotic You will likely be sent home from the hospital with a prescription for the narcotic pain medication that worked best throughout your stay. * Other medications may be prescribed for specific circumstances. If you have any questions, please call the office at . * Resume previous home medications unless otherwise instructed Dressing Care: Leave the plastic dressing in place for 5 days. After 5 days you may remove the plastic dressing. If the incision is not draining then you may leave the kevin open to air. If there is a little bit of drainage or if the kevin are getting stuck on your clothing then cover the incision with a dry dressing. The kevin will be removed at your 2 week follow-up appointment. Showering: You may shower with the plastic dressing in place. Let the shower spray hit the other shoulder. You can pat the plastic dry. If the dressing becomes wet underneath the plastic then simply remove the dressing. Keep the incision dry until you are 5 days out from the day of surgery. At that time you can shower with the kevin exposed. Let the soapy shower water run over the kevin and pat them dry. Do not scrub or soak the incision. Things To Watch For: * Drainage from the incision site that occurs more than one week after your surgery. * Increased redness at the incision site. * Fever above 102 degrees Fahrenheit. * Unusual chest pain or shortness of breath. * Call [facility] at with any of the above problems Follow-Up Visit: Follow-up with Dr. Ravi 2-3 weeks after your day of surgery. An appointment was probably scheduled when you signed-up for surgery in the office. If you have any questions call Office Instructions: More detailed instructions as well as Frequently Asked Questions were provided in a folder by our office when you signed-up for surgery. Please review these instructions when you get home. If you have any further questions or concerns, please feel free to call the office at [phone] Pending Studies at Discharge: No Stand-Alone Forms: [facility] Medications and DC Order Prescriptions: New oxycodone 5 mg tablet 5 mg PO Q6H PRN (Reason: pain) Qty: 30 RF: 0 Continued (DME) blood sugar diagnostic Strip See Rx Instructions .ROUTE .MEDSUPPLY Qty: 200 RF: 3 glipizide 10 mg tablet 10 mg PO BID Qty: 180 RF: 3 aspirin 81 mg tablet,delayed release (DR/EC) 81 mg PO DAILY Qty: 30 RF: 2 multivitamin tablet 1 tab PO DAILY RF: 0 red yeast rice 600 mg capsule 600 mg PO DAILY RF: 0 omega [id number]-euk-awn-fish oil 1,200 (144-216) mg capsule 1 cap PO DAILY RF: 0 Januvia 100 mg tablet 100 mg PO QAM RF: 0 losartan 25 mg tablet 25 mg PO QAM RF: 0 Cholesterol Essentials, Otc 2 tab PO DAILY RF: 0 Discharge Orders: Discharge Order (Routine); Ordered 05/18/19 Ordered By: Tomy Ravi Admission Data Admit Date/Time: 05/17/19 12:49 Attending Provider: Tomy Ravi Admit Provider: Tomy Ravi Primary Care Provider: Rafat Hernandez III Coding Level of Care Code D/C Day Management <30 mins Diagnoses History of reverse total replacement of right shoulder joint Z98.890
[2019-05-18] MEDS: DOCUSATE SODIUM 100 MG CAP PO SCH (08:46)
[2019-05-18] MEDS: INSULIN ASPART 100 UNITS/ML 3 ML PEN SC SCH (08:49)
[2019-05-18] MEDS ORDERED: LOSARTAN POTASSIUM 25 MG TAB PO SCH (09:00)
[2019-05-18] MEDS ORDERED: ASPIRIN 81 MG ECTAB PO SCH (09:00)
[2019-05-18] MEDS ORDERED: MULTIVITAMIN TAB PO SCH (09:00)
== END 2019-05-18 10:58 | disposition home health service (06) | DRG 483 ==
LOC: ASU 08:37 → 3E 12:49

== ENCOUNTER 2019-05-22 18:22 | Inpatient (IN) ==
[2019-05-22] MEDS ORDERED: CEFEPIME 2,000 MG/20 ML VIAL IV STA (18:35)
[2019-05-22] MEDS ORDERED: ACETAMINOPHEN 1,000 MG/100 ML VIAL IV STA (18:35)
[2019-05-22] MEDS ORDERED: SODIUM CHLORIDE 0.9% 500 ML IV ONE (18:35)
--- NOTE | 2019-05-22 18:40 | Emergency Department Note ---
ED Provider Note NAME: VIV BERMAN AGE: 83 SEX: M : 1935 ARRIVES VIA: Walk-In INFORMANT: [Patient][daughter] ED PROVIDER(S): [Matt Cochran MD] CHIEF COMPLAINT: Right arm pain HISTORY OF PRESENT ILLNESS: The patient is an 83-year-old male who 5 days ago had a right shoulder replacement surgery. The patient was seen in the ED yesterday for pain and some swelling. An ultrasound did not show any evidence for DVT. The patient was given Keflex for the possibility of an early infection. The patient states that today, the pain is more intense, he describes it as severe and the pain is worse with any movement of the right arm. The pain is pretty much from his shoulder down to his hand. There is no radiation of pain elsewhere. He has not had fever or chills, there has been no cough or congestion. He denies being short of breath. He has had no urinary complaints, diarrhea or vomiting. The patient did see his orthopedic surgeon today who felt the infection was in the forearm, not the surgical site. The patient began having increased pain after seeing his orthopedic surgeon, he presents to the ER as things just keep worsening. REVIEW OF SYSTEMS: See HPI for pertinent positives and negatives. A total of ten systems were reviewed and were otherwise negative. PMHx/PSHx: See Below SOCIAL HISTORY: See Below. PHYSICAL EXAM: GENERAL: Patient is in no acute distress. HEENT: No acute trauma, normocephalic atraumatic, mucous membranes moist, no nasal congestion, no scleral icterus. NECK: No stridor, no adenopathy, no meningismus, trachea is midline. LUNGS: Clear to auscultation bilaterally, no wheeze, no rhonchi, breath sounds equal. HEART: Slightly tachycardic, somewhat irregular rhythm, no murmurs. ABDOMEN: Soft, nontender, bowel sounds positive, no hernias, no peritonitis. EXTREMITIES: The patient has kevin in place over the right anterior shoulder, no erythema in this area. No drainage. The right shoulder does not appear to be dislocated clinically. Patient has erythema and swelling of the right upper extremity beginning at the elbow and extending down to the hand. There is warmth present as well. Patient has significant pain with any movement of the right arm and with touching the skin of the right arm. No evidence for neurovascular compromise. NEUROLOGIC: Oriented x 3, no acute motor or sensory deficits, no focal weakness. SKIN: No rash, no jaundice, no diaphoresis. DIFFERENTIAL DIAGNOSIS: Sepsis, UTI, pneumonia, metabolic, electrolyte abnormalities, cardiac sources, intracerebral event, toxicologic, neurologic, as well as other pathologies. EMERGENCY DEPARTMENT COURSE/PROCEDURES: ECG: Indication was tachycardia. There is a sinus tachycardia with a rate of 112. There are PVCs present. There is artifact present. There is no obvious ST elevation. QTc is 417. Continuous Cardiac Monitoring: An order was placed for continuous cardiac monitoring. The monitor shows a rate of 103 with sinus tachycardia and PVCs. MEDICAL DECISION MAKING: There is no leukocytosis or concerning anemia. Platelet count is normal. There is no coagulopathy. No significant electrolyte abnormality or kidney failure. No concerning liver enzyme elevation. Lactic acid level is not elevated making severe sepsis less likely. Procalcitonin level was normal. Influenza testing was negative. Chest film shows some potential atelectasis, there was no pneumonia or CHF. EKG showed a sinus tachycardia with some PVCs, no acute ischemia. Right forearm CT shows a potential cellulitis, no abscess or necrotizing fasciitis findings. There was some inflammation of the gallbladder however, the patient is not tender in the right upper quadrant. The patient received IV saline, 500 cc. He was given IV Tylenol for pain control, he received IV cefepime as empiric antibiotic coverage. The patient presents with increasing swelling, redness and pain in the area of his right forearm. 5 days ago he had right shoulder surgery. He is already on Keflex. He does appear to have a right arm cellulitis, he is failing outpatient treatment. I do think hospitalization is warranted. I did speak to the patient, I talked with case management. The on-call hospitalist has been consulted. Impression & Plan Cellulitis of right arm, Tachycardia, H/O shoulder surgery, Failure of outpatient treatment Past Med/Surg History Medical History Arthritis Diabetes History of high blood pressure Hypercholesterolemia (Chronic) CONTROLLED WITH MEDS Surgical History History of anesthesia reaction HICCUPS FOR 1 MON AFTER (AFTER MOST RECENT BACK SURGERY: [facility]) History of back surgery X2 History of colonoscopy History of foot surgery LEFT, HEEL 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 History of total right knee replacement Family History Mother Diabetes Father Stroke syndrome Brother Asthma Emphysema, unspecified Denies family history of Prostate cancer Colorectal cancer Social History Preferred Language: Grenadian Communication Ability: Effective Hearing Ability: Normal Criminal Records Technician Required: No Beliefs That Will Affect Care: Baptist Baptist Beliefs: JEW marital status: / Current Living Situation: Family Current Living Situation Comment: SON AND DAUGHTER LIVE WITH PT current occupational status: retired Feels Safe at Home: Yes Smoking Status: Former smoker Tobacco Type: cigars ; Age Started Using Tobacco: 19 ; Age Quit Using Tobacco: 63 ; Hx Alcohol Use: Yes ("VERY LITTLE") Alcohol type: beer Alcohol Intake Frequency: Holidays/Special Occasions Hx Substance Use: No Seatbelt Use: always Sunscreen Use: No Results & Data Vital Signs Vital Signs - 24 hr 05/22/19 18:24 05/22/19 18:40 05/22/19 18:45 Temperature 36.7 C Temperature Source Oral Pulse Rate 97 H 112 H 107 H Pulse Rate from SpO2 Sensor Respiratory Rate 20 18 16 Respiratory Effort / Characteristics Non-Labored Spontaneous Respiratory Depth Normal Blood Pressure 138/63 Blood Pressure Mean 88 Blood Pressure Position Sitting Pulse Oximetry 91 Oxygen Delivery Method Room Air Sepsis Recent Fever Within 48 Hours No Sepsis New/Unexplained Change in Mental Status No Sepsis Action Taken by Nursing No Action Required 05/22/19 18:53 05/22/19 19:00 05/22/19 19:06 Temperature Temperature Source Pulse Rate 113 H 115 H Pulse Rate from SpO2 Sensor 97 H Respiratory Rate 15 30 H Respiratory Effort / Characteristics Respiratory Depth Blood Pressure 144/100 H Blood Pressure Mean 118 Blood Pressure Position Pulse Oximetry 97 93 Oxygen Delivery Method Sepsis Recent Fever Within 48 Hours Sepsis New/Unexplained Change in Mental Status Sepsis Action Taken by Nursing 05/22/19 19:16 05/22/19 19:34 Temperature Temperature Source Pulse Rate 103 H 101 H Pulse Rate from SpO2 Sensor 106 H 80 Respiratory Rate 17 12 Respiratory Effort / Characteristics Respiratory Depth Blood Pressure 128/72 125/59 L Blood Pressure Mean 89 95 Blood Pressure Position Pulse Oximetry 86 L 89 L Oxygen Delivery Method Sepsis Recent Fever Within 48 Hours Sepsis New/Unexplained Change in Mental Status Sepsis Action Taken by [facility]pc Medications Current Medication List: was personally reviewed by me Laboratory Data Attestation: I reviewed the patient's lab results. Result diagrams: 05/22/19 18:50 05/22/19 18:50 Lab Results 05/22/19 05/22/19 05/22/19 Range/Units 18:50 18:50 18:50 WBC 10.26 (4.8-10.8) K/uL RBC 4.21 L (4.7-6.1) M/uL Hgb 13.7 L (14.0-18.0) g/dL Hct 39.6 L (42-52) % MCV 94.1 (80-100) fL MCH 32.5 (25-34) pg MCHC 34.6 (32-36) g/dL RDW Std Deviation 44.6 (36.4-46.3) fL RDW Coeff of Josefa 13.0 (11.5-14.5) % Plt Count 210 (130-400) K/uL MPV 11.0 H (7.4-10.4) fL Immature Gran % (Auto) 0.5 % Neut % (Auto) 69.7 % Lymph % (Auto) 12.1 % [place] % (Auto) 17.3 % Eos % (Auto) 0.3 % Baso % (Auto) 0.1 % Immature Gran # (Auto) 0.05 H (0.00-0.02) K/uL Neut # (Auto) 7.16 H (1.4-6.5) K/uL Lymph # (Auto) 1.24 (1.2-3.4) K/uL [place] # (Auto) 1.77 H (0.11-0.59) K/uL Eos # (Auto) 0.03 (0-0.5) K/uL Baso # (Auto) 0.01 (0-0.2) K/uL PT 10.6 (9.0-12.0) Seconds INR 1.0 (0.9-1.1) APTT 26.2 (21.0-31.0) Seconds PTT Ratio 0.9 Sodium (136-145) mmol/L Potassium (3.5-5.1) mmol/L Chloride (98-107) mmol/L Carbon Dioxide (21-32) mmol/L Anion Gap (3-11) BUN (7-18) mg/dl Creatinine (0.6-1.4) mg/dl Est Cr Clr Drug Dosing ml/min Est GFR ( Amer) Est GFR (Non-Af Amer) BUN/Creatinine Ratio (10-20) Glucose (70-99) mg/dl Lactate (0.4-2.0) mmol/L Calcium (8.5-10.1) mg/dl Magnesium (1.8-2.4) mg/dl Total Bilirubin (0.2-1) mg/dl AST (15-37) U/L ALT (12-78) U/L Alkaline Phosphatase (45-117) U/L Total Protein (6.4-8.2) gm/dl Albumin (3.4-5.0) gm/dl Globulin (2.5-4.0) gm/dl Albumin/Globulin Ratio (0.9-2) Procalcitonin 0.11 (0-0.5) ng/ml Influenza Type A (PCR) (Neg) Influenza Type B (PCR) (Neg) 05/22/19 05/22/19 05/22/19 Range/Units 18:50 18:50 18:55 WBC (4.8-10.8) K/uL RBC (4.7-6.1) M/uL Hgb (14.0-18.0) g/dL Hct (42-52) % MCV (80-100) fL MCH (25-34) pg MCHC (32-36) g/dL RDW Std Deviation (36.4-46.3) fL RDW Coeff of Josefa (11.5-14.5) % Plt Count (130-400) K/uL MPV (7.4-10.4) fL Immature Gran % (Auto) % Neut % (Auto) % Lymph % (Auto) % [place] % (Auto) % Eos % (Auto) % Baso % (Auto) % Immature Gran # (Auto) (0.00-0.02) K/uL Neut # (Auto) (1.4-6.5) K/uL Lymph # (Auto) (1.2-3.4) K/uL [place] # (Auto) (0.11-0.59) K/uL Eos # (Auto) (0-0.5) K/uL Baso # (Auto) (0-0.2) K/uL PT (9.0-12.0) Seconds INR (0.9-1.1) APTT (21.0-31.0) Seconds PTT Ratio Sodium 132 L (136-145) mmol/L Potassium 4.6 (3.5-5.1) mmol/L Chloride 97 L (98-107) mmol/L Carbon Dioxide 31 (21-32) mmol/L Anion Gap 4.0 (3-11) BUN 25 H (7-18) mg/dl Creatinine 1.30 (0.6-1.4) mg/dl Est Cr Clr Drug Dosing 50.2 ml/min Est GFR ( Amer) 58.9 Est GFR (Non-Af Amer) 50.8 BUN/Creatinine Ratio 19.5 (10-20) Glucose 256 H (70-99) mg/dl Lactate 1.3 (0.4-2.0) mmol/L Calcium 9.4 (8.5-10.1) mg/dl Magnesium 2.2 (1.8-2.4) mg/dl Total Bilirubin 1.0 (0.2-1) mg/dl AST 45 H (15-37) U/L ALT 52 (12-78) U/L Alkaline Phosphatase 59 (45-117) U/L Total Protein 7.8 (6.4-8.2) gm/dl Albumin 3.2 L (3.4-5.0) gm/dl Globulin 4.6 H (2.5-4.0) gm/dl Albumin/Globulin Ratio 0.7 L (0.9-2) Procalcitonin (0-0.5) ng/ml Influenza Type A (PCR) Neg for Influ A (Neg) Influenza Type B (PCR) Neg for Influ B (Neg) Administered Medications Discontinued Medications Sodium Chloride (Nss) 500 mls @ 999 mls/hr IV .Q31M ONE Stop: 05/22/19 19:05 Last Infusion: 05/22/19 19:36 Dose: 0 mls/hr Documented by: [id number] Admin: 05/22/19 18:59 Dose: 999 mls/hr Documented by: [id number] Cefepime HCl (Maxipime) 2,000 mg in 20 mls @ 5 mls/min IV NOW STA; Protocol Stop: 05/22/19 18:38 Last Admin: 05/22/19 18:59 Dose: 5 mls/min Documented by: [id number] Acetaminophen (Ofirmev) 1,000 mg in 100 mls @ 400 mls/hr IV NOW STA Stop: 05/22/19 18:49 Last Infusion: 05/22/19 19:14 Dose: 0 mls/hr Documented by: [id number] Admin: 05/22/19 18:59 Dose: 400 mls/hr Documented by: [id number] Imaging Data Radiologist's Impression: XR chest 1V portable HISTORY: 83 years-old Male SEPSIS acute sepsis COMPARISON: Chest radiograph 05/21/2019 TECHNIQUE: Portable AP view of the chest FINDINGS: Cardiac silhouette is enlarged, unchanged. Persistent blunting of the right costophrenic angle with right hemidiaphragmatic elevation. Mild linear bibasilar densities. No pneumothorax, overt pulmonary edema or lobar airspace consolidation. Right shoulder total joint arthroplasty with overlying skin kevin and expected postoperative soft tissue swelling with deep tissue air. Degenerative changes of the left shoulder and spine. Left shoulder rotator cuff calcific tendinosis. IMPRESSION: 1. Cardiomegaly. 2. Unchanged right hemidiaphragmatic elevation with linear bibasilar densities suggestive of atelectasis/scarring. 3. Blunting of the right costophrenic angle is also likely secondary to atelectasis. Trace effusion could appear similarly. CT forearm RT wo con HISTORY: 83 years-old Male poss nec fasc, pain, sp shoulder surg acute pain of the right forearm. Recent right shoulder surgery. COMPARISON: Right shoulder radiographs 05/21/2019 TECHNIQUE: Multiple axial CT images of the right forearm were obtained without the use of IV contrast. A dose lowering technique was used consistent with the principals of HUEY. FINDINGS: Limited exam secondary to patient positioning. Text[employer] Foot[employer] Mechanic localizer images demonstrate cardiomegaly with partially imaged spinal fusion hardware. Partially imaged hardware of the proximal right humerus. Calcified plaque of the aorta. Multilevel degenerative changes of the spine. Mild right hemidiaphragmatic elevation. Mild gallbladder distention incidentally noted with trace fluid/edema noted along the duodenum. Equivocal gallbladder wall thickening. No deep tissue air identified to suggest necrotizing fasciitis. There is moderate subcutaneous and deep tissue edema of the distal upper arm and forearm. No drainable fluid collection. Mild degree of arterial calcifications are noted. No drainable fluid collection or soft tissue mass. 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 Small elbow joint effusion. No acute fracture or dislocation. No suspicious bone lesions. Severe osteoarthritis of the first carpal metacarpal joint. There is a least moderate radiocarpal and intercarpal osteoarthritis with prominent subcortical cystic changes. IMPRESSION: 1. Moderate subcutaneous and deep tissue edema of the distal upper arm and forearm suggests cellulitis, venous stasis or lymphedema. There is no drainable fluid collection and no appreciable deep tissue air. 2. 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 3. Incidental note is made of mild gallbladder distention with equivocal gallbladder wall thickening and trace edema/fluid adjacent to the duodenum. Findings could be correlated clinically to exclude acute cholecystitis. Blood Pressure Blood Pressure Findings: Elevated blood pressure Blood Pressure Disposition: further management by hospitalist Discharge Plan Visit Data Chief Complaint: Infection Stated Complaint: INFECTION IN RT ARM, PAIN, LIGHTHEADED, SOB ED Provider: Matt Cochran Discharge Problem: Cellulitis of right arm, Tachycardia, H/O shoulder surgery, Failure of outp atient treatment Patient Disposition: Being Evaluated by Hospitalist Condition: Good Forms Stand Alone Forms: My [facility] GLIIF Prescriptions Prescriptions: No Action aspirin 81 mg tablet,delayed release (DR/EC) 81 mg PO DAILY Qty: 30 RF: 2 multivitamin tablet 1 tab PO DAILY RF: 0 cephalexin 500 mg capsule 500 mg PO Q6 Qty: 40 RF: 0 red yeast rice 600 mg capsule 600 mg PO DAILY RF: 0 omega 3-[id number]-fish oil 1,200 (144-216) mg capsule 1 cap PO DAILY RF: 0 Januvia 100 mg tablet 100 mg PO QAM RF: 0 oxycodone 5 mg tablet 10 mg PO Q6 PRN (Reason: Pain) RF: 0 acetaminophen [Tylenol Arthritis Pain] 650 mg Tablet Extended Release 650 mg PO Q12H PRN (Reason: Pain) RF: 0 losartan 25 mg tablet 25 mg PO QAM RF: 0 Cholesterol Essentials, Otc 1 tab PO BID RF: 0 Referrals Referrals: Rafat Hernandez III, MD [Primary Care Provider] -
--- NOTE | 2019-05-22 19:07 | XRay Report ---
XR chest 1V portable HISTORY: 83 years-old Male SEPSIS acute sepsis COMPARISON: Chest radiograph 05/21/2019 TECHNIQUE: Portable AP view of the chest FINDINGS: Cardiac silhouette is enlarged, unchanged. Persistent blunting of the right costophrenic angle with r ight hemidiaphragmatic elevation. Mild linear bibasilar densities. No pneumothorax, overt pulmonary e lester or lobar airspace consolidation. Right shoulder total joint arthroplasty with overlying skin sta ples and expected postoperative soft tissue swelling with deep tissue air. Degenerative changes of th e left shoulder and spine. Left shoulder rotator cuff calcific tendinosis. IMPRESSION: 1. Cardiomegaly. 2. Unchanged right hemidiaphragmatic elevation with linear bibasilar densities suggestive of atelecta sis/scarring. 3. Blunting of the right costophrenic angle is also likely secondary to atelectasis. Trace effusion c ould appear similarly. ACT 112: Negative or not required by law. The above report was generated using voice recognition software. It may contain grammatical, syntax o r spelling errors. Electronically signed by: Thomas Tejada M.D. 05/22/2019 7:06 PM
[2019-05-22 19:12] LABS: Basophils # (auto) 0.01 K/uL (0-0.2); Basophils % (auto) 0.1 %; Eosinophils # (auto) 0.03 K/uL (0-0.5); Eosinophils % (auto) 0.3 %; Hematocrit (blood only) 39.6 % (42-52); Hemoglobin 13.7 g/dL (14.0-18.0); Immature Granulocytes # (auto) 0.05 K/uL (0.00-0.02); Immature Granulocytes % (auto) 0.5 %; Lymphocytes # (auto) 1.24 K/uL (1.2-3.4); Lymphocytes % (auto) 12.1 %; Mean Corpuscular Hemoglobin 32.5 pg (25-34); Mean Corpuscular Hgb Conc 34.6 g/dL (32-36); Mean Corpuscular Volume 94.1 fL (80-100); Monocytes # (auto) 1.77 K/uL (0.11-0.59); Monocytes % (auto) 17.3 %; Neutrophils # (auto) 7.16 K/uL (1.4-6.5); Neutrophils % (auto) 69.7 %; Platelet Count 210 K/uL (130-400); RDW Standard Deviation 44.6 fL (36.4-46.3); Red Blood Count 4.21 M/uL (4.7-6.1); White Blood Count 10.26 K/uL (4.8-10.8)
[2019-05-22 19:24] LABS: Partial Thromboplastin Ratio 0.9; Partial Thromboplastin Time 26.2 Seconds (21.0-31.0); Prothrombin Time 10.6 Seconds (9.0-12.0)
[2019-05-22 19:27] LABS: Albumin Level 3.2 gm/dl (3.4-5.0); BUN Creatinine Ratio 19.5 (10-20); Calcium 9.4 mg/dl (8.5-10.1); Creatinine Clr Calc Pharmacy 50.2 ml/min; Est GFR (African American) 58.9; Est GFR (Non-African American) 50.8; Magnesium 2.2 mg/dl (1.8-2.4); Potassium 4.6 mmol/L (3.5-5.1)
[2019-05-22 19:29] LABS: Albumin Globulin Ratio 0.7 (0.9-2); Globulin 4.6 gm/dl (2.5-4.0); Total Protein 7.8 gm/dl (6.4-8.2)
[2019-05-22 19:31] LABS: Influenza A virus by PCR Neg for Influ A (Neg); Influenza B virus by PCR Neg for Influ B (Neg)
--- NOTE | 2019-05-22 19:53 | CT Scan Report ---
CT forearm RT wo con HISTORY: 83 years-old Male poss nec fasc, pain, sp shoulder surg acute pain of the right forearm. Re cent right shoulder surgery. COMPARISON: Right shoulder radiographs 05/21/2019 TECHNIQUE: Multiple axial CT images of the right forearm were obtained without the use of IV contrast . A dose lowering technique was used consistent with the principals of HUEY. FINDINGS: Limited exam secondary to patient positioning. 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 Partially imaged hardware of the proximal right humerus. Calc ified plaque of the aorta. Multilevel degenerative changes of the spine. Mild right hemidiaphragmatic elevation. Mild gallbladder distention incidentally noted with trace fluid/edema noted along the duo denum. Equivocal gallbladder wall thickening. No deep tissue air identified to suggest necrotizing fasciitis. There is moderate subcutaneous and de ep tissue edema of the distal upper arm and forearm. No drainable fluid collection. Mild degree of ar terial calcifications are noted. No drainable fluid collection or soft tissue mass. 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 S mall elbow joint effusion. No acute fracture or dislocation. No suspicious bone lesions. Severe osteo arthritis of the first carpal metacarpal joint. There is a least moderate radiocarpal and intercarpal osteoarthritis with prominent subcortical cystic changes. IMPRESSION: 1. Moderate subcutaneous and deep tissue edema of the distal upper arm and forearm suggests celluliti s, venous stasis or lymphedema. There is no drainable fluid collection and no appreciable deep tissue air. 2. 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 3. Incidental note is made of mild gallbladder distention with equivocal gallbladder wall thickening and trace edema/fluid adjacent to the duodenum. Findings could be correlated clinically to exclude ac [place] cholecystitis. ACT 112: Negative or not required by law. The above report was generated using voice recognition software. It may contain grammatical, syntax o r spelling errors. Electronically signed by: Thomas Tejada M.D. 05/22/2019 7:52 PM
--- NOTE | 2019-05-22 21:44 | History & Physical Report ---
Date of Service May 22, 2019 Assessment & Plan (1) Cellulitis of right arm: Cellulitis ONly briefly attempted outpatient treatment Will start cefazolin 1g q8h Patient afebrile, no white count procal negative Component of his pain likely from post op. Declining any further pain medication at this time WIll continue with his oxycodone 10 mg PRN and TYlenol Dehydration Regular diet, encouraged more PO water intake NSS 80 mls/hour DMII Insulin sliding scale januvia held A1C ordered for am Disposition Concerned patient may be unable to care for himself at home post op ORdered PT and OT and consulted case management He may need rehab placement DVT PPx: Lovenox F/E/N: regular diet NSS 80 mls/hour Dispo: Admitting for pain and dehydration, hopefully can transition to PO antibiotics and discharge home or to rehab facility when pain is stable. (2) Tachycardia: (3) H/O shoulder surgery: (4) Post-op pain: (5) Dehydration: History of Present Illness Chief Complaint: Cellulitis Primary Care Provider: Rafat Hernandez MD Carlene Christianson is an 83 year old man with a past medical history of multiple orthopedic injuries including recent right shoulder arthroplasty on Monday, HTN, HLD DMII. Patient is having right arm pain and swelling since that time. Initially presented yesterday to emergency department and was evaluated and thought to be safe for discharge home for outpatient treatment on keflex. Received on dose of keflex before coming back in today. He feels his pain is too severe and the keflex is not working. He is taking oxycodone for pain from Dr. Ravi and feels like it's not touching it. He is upset he wasn't put into hospital on previous ED trip "to take care of it". Patient does not want any stronger pain medication because he feels opiates make him confused. Also doesn't want NSAID's as they upset his stomach. Normally takes tylenol for pain. Today patient with red hot swollen right forearm afebrile, vital signs within normal limits. Labwork significant for some slight hyponatremia, elevated BUN, elevated BSG and low albumin. Patient admits he's only been drinking about 2 glasses of water per day. No white count, procalcitonin negative. Otherwise doing well, lives at home and takes care of his land in [place]. He is a former smoker smoked about five cigars a day since age 17 quit 15 years ago. NO history of CAD, CVA, lung pathology or any other chronic medical illness. Does not endorse diabetes but is on januvia and has elevated blood sugar. Allergies Allergy/AdvReac Type Severity Reaction Status Date / Time NSAIDS (Non-Steroidal AdvReac Mild Gastrointestinal Verified 05/22/19 20:00 Anti-Inflamma Upset meloxicam AdvReac Unknown Unknown Verified 05/22/19 20:00 Home Medications Home Medications Medication Instructions Recorded Confirmed Type red yeast rice 600 mg capsule 600 mg PO DAILY cap 08/13/18 05/22/19 History aspirin 81 mg tablet,delayed 81 mg PO DAILY #30 tab 09/14/18 05/22/19 Rx release sitagliptin 100 mg tablet 100 mg PO QAM 02/04/19 05/22/19 History multivitamin 1 tab PO DAILY 03/08/19 05/22/19 History Cholesterol Essentials, Otc 1 tab PO BID 04/05/19 05/22/19 History losartan 25 mg PO QAM 04/05/19 05/22/19 History omega 1-rap-lhu-fish oil 1,200 mg 1 cap PO DAILY cap 05/08/19 05/22/19 History (144 mg-216 mg) capsule acetaminophen [Tylenol Arthritis 650 mg PO Q12H PRN 05/21/19 05/22/19 History Pain] oxycodone 10 mg PO Q6 PRN 05/21/19 05/22/19 History cephalexin 500 mg capsule 500 mg PO Q6 #40 cap 05/22/19 05/22/19 Rx glipizide 10 mg PO BID 05/23/19 05/23/19 History Past Med/Surg History Medical History Arthritis Diabetes History of high blood pressure Hypercholesterolemia (Chronic) CONTROLLED WITH MEDS Surgical History History of anesthesia reaction HICCUPS FOR 1 MON AFTER (AFTER MOST RECENT BACK SURGERY: [facility]) History of back surgery X2 History of colonoscopy History of foot surgery LEFT, HEEL 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 History of total right knee replacement Family History Mother Diabetes Father Stroke syndrome Brother Asthma Emphysema, unspecified Denies family history of Prostate cancer Colorectal cancer Social History Preferred Language: Lithuanian Communication Ability: Effective Hearing Ability: Normal 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 Beliefs That Will Affect Care: None marital status: / Current Living Situation: Family Current Living Situation Comment: SON AND [id number] LIVE WITH PT current occupational status: retired Other Information That Helps Us Care for You: No Feels Safe at Home: Yes Safety Concerns: Feels Safe At This Time Smoking Status: Former smoker Tobacco Type: cigars ; Age Started Using Tobacco: 19 ; Age Quit Using Tobacco: 63 ; Hx Alcohol Use: Yes ("VERY LITTLE") Alcohol type: beer Alcohol Intake Frequency: Holidays/Special Occasions Hx Substance Use: No Seatbelt Use: always Sunscreen Use: No Review of Systems Constitutional: no fever, no chills, no fatigue and no weakness Eyes: no problem reported Ear, Nose, Mouth, Throat: no problem reported Respiratory: no cough and no dyspnea Cardiovascular: no chest pain, no dyspnea, no orthopnea, no palpitations and no lightheadedness Gastrointestinal: no abdominal pain, no nausea and no vomiting Musculoskeletal: + joint pain Integumentary: red hot swollen right forearm Physical Exam Physical Exam: Constitutional: Well appearing 83 year old man in no apparent distress resting comfortably sitting up in bed Eyes: EOMMI bilterally, PERRLA ENMT: External appearance normal Neck: Supple nontender, no lymph nodes palpable Respiratory: chest expansion equal, no respiratory distress, lung sounds vesicu lar throughout Cardiovascular: Regular rate regular rhythm no murmurs rubs skips or gallops, lower limb edema left greater than right which he tells me is chronic, No elevated JVD GI: Abdomen soft, nontender, umbilical hernia soft and reducible Skin: Erythematous warm tender rash of arm from hand extending proximally to elbow. No clear wound present. Results & Data Vital Signs (Past 12 Hours) Vital Signs Temp Pulse Resp BP Pulse Ox 05/22/19 21:30 87 18 151/90 H 97 05/22/19 21:00 91 H 19 145/93 H 98 05/22/19 20:30 95 H 20 144/80 H 97 05/22/19 20:00 94 H 18 134/67 97 05/22/19 19:34 101 H 12 125/59 L 89 L 05/22/19 19:16 103 H 17 128/72 86 L 05/22/19 19:06 115 H 30 H 144/100 H 93 05/22/19 19:00 113 H 15 05/22/19 18:53 97 05/22/19 18:45 107 H 16 05/22/19 18:40 112 H 18 05/22/19 18:24 36.7 C 97 H 20 138/63 91 Code Status & VTE Plan VTE Prophylaxis Plan VTE Prophylaxis will be ordered: Yes Supervising Physician Co-Signing Physician Notes Attending addendum: I have physically seen this patient, have supervised the medical residents activities, and agree with the H&P unless as otherwise noted. Assessment and Plan: Cellulitis of right upper extremity-status post right shoulder surgery during admission 05/16-05/17- Failure of outpatient treatment He was given cefepime 2 g IV x1 in the ED along with Tylenol 1 g IV and normal saline 500 mL's. Placed on cefazolin 1 g IV every 8 hours. Would consider the addition of Bactrim DS orally or place on vancomycin IV-cefepime IV. Consult orthopedics Diabetes mellitus- Kristin Ktaz. Placed on Accu-Cheks before meals and at bedtime with NovoLog coverage per scale. Remainder of orders and notations as noted. Resident Activity Tracking Resident Involvement: Resident Care Provided Care Provided: Adult Hospital Medicine
[2019-05-22 21:53] LABS: Appearance Urine Cloudy (Clear); Bacteria Urine Automated Negative (Negative); Bilirubin Urine Negative (Negative); Blood Urine Trace (Negative); Color Urine Dark Yellow; Glucose Urine UA 1+ (Negative); Ketones Urine Trace (Negative); Leukocyte Esterase Urine Negative (Negative); Nitrite Urine Negative (Negative); Protein Urine 1+ (Negative); RBC Urine Automated 0-4 /hpf (0-4); Specific Gravity Urine 1.026 (1.000-1.030); Urobilinogen Urine Negative (Negative)
[2019-05-22] MEDS ORDERED: CARBOHYDRATES FOR HYPOGLYCEMIA PO PRN (22:07)
[2019-05-22] MEDS ORDERED: GLUCOSE 10 TABS/TUBE PO PRN (22:07)
[2019-05-22] MEDS ORDERED: POLYETHYLENE (MIRALAX) 17 GM PACK PO PRN (22:07)
[2019-05-22] MEDS ORDERED: ALUMINUM/MAGNESIUM SUSP 30 ML UDC PO PRN (22:07)
[2019-05-22] MEDS ORDERED: ONDANSETRON INJ 2 MG/ML 2 ML VIAL IV PRN (22:07)
[2019-05-22] MEDS ORDERED: DEXTROSE 50% 50 ML SYRINGE IV PRN (22:07)
[2019-05-22] MEDS ORDERED: GLUCOSE 40% GEL 15 GM TUBE PO PRN (22:07)
[2019-05-22] MEDS ORDERED: MAGNESIUM HYDROXIDE SUSP 30 ML UDC PO PRN (22:07)
[2019-05-22] MEDS ORDERED: GLUCAGON FOR INJ 1 MG VIAL SQ PRN (22:07)
[2019-05-22] MEDS: SODIUM CHLORIDE 0.9% 500 ML IV SCH (22:49)
[2019-05-22] MEDS: ENOXAPARIN INJ 40 MG/0.4 ML SYR SQ SCH (22:50)
[2019-05-22] MEDS: CEFAZOLIN 1000MG 1,000 MG/7.5 ML SYR IV SCH (22:50)
[2019-05-23] MEDS: ACETAMINOPHEN 325 MG TAB PO PRN (00:07)
[2019-05-23] MEDS: INSULIN ASPART 100 UNITS/ML 3 ML PEN SC SCH ×5 (01:01→20:51)
[2019-05-23] MEDS: SODIUM CHLORIDE 0.9% 500 ML IV SCH ×2 (05:17→11:21)
[2019-05-23] MEDS: CEFAZOLIN 1000MG 1,000 MG/7.5 ML SYR IV SCH ×3 (05:42→22:04)
[2019-05-23 06:28] LABS: Est GFR (Non-African American) 68.1
[2019-05-23] MEDS: OXYCODONE HCL IR 5 MG TAB (IMMEDIATE RELEASE) PO PRN ×3 (06:38→23:39)
[2019-05-23] MEDS: LOSARTAN POTASSIUM 25 MG TAB PO SCH (08:29)
[2019-05-23] MEDS: OMEGA-3 (PURIFIED FISH OIL) 1 GM CAP PO SCH (08:29)
[2019-05-23] MEDS: MULTIVITAMIN TAB PO SCH (08:29)
[2019-05-23] MEDS: ASPIRIN 81 MG ECTAB PO SCH (08:29)
[2019-05-23 08:45] LABS: Estimated Average Glucose 151 mg/dl; Hemoglobin A1C 6.9 % (4.5-5.6)
--- NOTE | 2019-05-23 09:36 | Electrocardiogram Report ---
Test Reason : Blood Pressure : / mmHG Vent. Rate : 112 BPM Atrial Rate : 127 BPM P-R Int : 130 ms QRS Dur : 076 ms QT Int : 306 ms P-R-T Axes : 078 -09 002 degrees QTc Int : 417 ms Sinus tachycardia with occasional Premature ventricular complexes and Premature atrial complexes Inferior infarct , age undetermined Cannot rule out Anterior infarct , age undetermined Abnormal ECG When compared with ECG of 15-APR-2019 12:58, Premature atrial complexes are now Present Inferior infarct is now Present Confirmed by Jesus Guadalupe ([id number]) on 05/23/2019 9:36:29 AM Referred By: REFERRED SELF Confirmed By:Jesus Guadalupe
--- NOTE | 2019-05-23 12:43 | Hospitalist Progress Note ---
Date of Service May 23, 2019 Assessment & Plan (1) Cellulitis of right arm: Cellulitis Only briefly attempted outpatient treatment Continue cefazolin 1g q8h Patient afebrile, no white count procal negative Component of his pain likely from post op. Declining any further pain medication at this time Continue with his oxycodone 10 mg PRN and Tylenol No DVT on US 05/20 but may want to repeat if no improvement given poor quality of study Disposition Concerned patient may be unable to care for himself at home post op ORdered PT and OT and consulted case management He may need rehab placement DVT PPx: Lovenox F/E/N: regular diet NSS 80 mls/hour Dispo: Admitting for pain and dehydration, hopefully can transition to PO antibiotics and discharge home or to rehab facility when pain is stable. (2) Tachycardia: Resolved (3) H/O shoulder surgery: (4) Post-op pain: (5) Dehydration: Given IVF, DC'd now that he is taking in good po (6) Diabetes mellitus type 2, uncontrolled: Resume Januvia, if needed, will add insulin SS but he does not take insulin at home and appears to be well controlled on just Januvia. A1c 6.9 Admission and Anticipated Discharge Date Admission Date: May 22, 2019 Subjective Mr. Christianson's arm is feeling a bit better than when he came in. He reports he is better able to move his fingers with a small reduction in swelling. ROS Constitutional: no chills, aches, sweats or fever Respiratory: no sob,cough, sputum, or wheezing Cardiac: no chest pain, palpitations, edema, orthopnea or lightheadedness GI: no abdominal pain, nausea, vomiting, diarrhea or constipation : no dysuria or hesitancy Extremities: no joint pain or weakness Skin: no rash All other systems reviewed and negative Physical Exam Physical Exam: General: no distress Eyes: normal inspection, PERLL Respiratory: chest non tender, clear to auscultation, normal breath sounds, no respiratory distress, no accessory muscle use Cardiac: regular rate and rhythm, no rub or gallop, no murmur, no edema, no jvd GI/: active bowel sounds, no abd pain or tenderness, soft, non distended Extremities: normal range of motion, normal strength, non tender Neuro/Psych: alert and oriented x 3, normal mood and affect Skin: normal color, dry, right arm edematous and erythematous from elbow down Results & Data ([facility]) Vital Signs (Past 12 Hours) Vital Signs Temp Pulse Resp BP Pulse Ox 05/23/19 07:24 36.8 C 78 20 159/74 H 94 PG Care Time/CCT Total # of Minutes Spent Total Time Spent with Patient: Total time spent is greater than 50% in coordin ation of care (as documented) at patient's floor/unit and/or counseling patient: Coding Level of Care Code 32808 Subseq Hosp Care Lvl 2 Diagnoses Cellulitis of right arm L03.113 Tachycardia R00.0 H/O shoulder surgery Z98.890 Post-op pain G89.18 Dehydration E86.0 Diabetes mellitus type 2, uncontrolled E11.65
[2019-05-23] MEDS: SITAGLIPTIN PHOSPHATE 100 MG TAB PO SCH (14:11)
--- NOTE | 2019-05-23 14:14 | Orthopedic Consultation ---
Date of Consultation May 23, 2019 Assessment & Plan (1) Cellulitis of right arm: His shoulder is doing okay but he still with a lot of postoperative swelling and cellulitis of his right forearm and right hand. Unfortunately when this happens it can take 6 to 8 weeks for it to really subside. I do want him to do some physical therapy and do hand wrist elbow and pendulum exercises with his shoulder. I think it is reasonable for him to be discharged to a rehab facility. He does not want any more pain medications at this time. I will see him back in the office as previously scheduled. Present on Admission?: Yes History of Present Illness Reason for Consultation: Postoperative right arm swelling Attending Physician: Donovan Lopez MD History of Present Illness Carlene is an 83-year-old male who underwent a right reverse shoulder arthroplasty a week ago. He is not having too much pain or issues with his right shoulder but is been complaining of swelling and redness of his right forearm and right hand. He went to the emergency room yesterday and they treated him conservatively. X-rays were negative. He had no drainage from the incision. He then came right over to my office. I looked at him closely and start him on oral Keflex for possible cellulitis. He then went back to the hospital and was admitted for IV antibiotics. Orthopedics was consulted for follow-up. Allergies Allergy/AdvReac Type Severity Reaction Status Date / Time NSAIDS (Non-Steroidal AdvReac Mild Gastrointestinal Verified 05/22/19 20:00 Anti-Inflamma Upset meloxicam AdvReac Unknown Unknown Verified 05/22/19 20:00 Home Medications Home Medications Medication Instructions Recorded Confirmed Type red yeast rice 600 mg capsule 600 mg PO DAILY cap 08/13/18 05/22/19 History aspirin 81 mg tablet,delayed 81 mg PO DAILY #30 tab 09/14/18 05/22/19 Rx release sitagliptin 100 mg tablet 100 mg PO QAM 02/04/19 05/22/19 History multivitamin 1 tab PO DAILY 03/08/19 05/22/19 History Cholesterol Essentials, Otc 1 tab PO BID 04/05/19 05/22/19 History losartan 25 mg PO QAM 04/05/19 05/22/19 History omega 5-zui-mad-fish oil 1,200 mg 1 cap PO DAILY cap 05/08/19 05/22/19 History (144 mg-216 mg) capsule acetaminophen [Tylenol Arthritis 650 mg PO Q12H PRN 05/21/19 05/22/19 History Pain] oxycodone 10 mg PO Q6 PRN 05/21/19 05/22/19 History cephalexin 500 mg capsule 500 mg PO Q6 #40 cap 05/22/19 05/22/19 Rx Patient History Medical History Arthritis Diabetes History of high blood pressure Hypercholesterolemia (Chronic) CONTROLLED WITH MEDS Surgical History History of anesthesia reaction HICCUPS FOR 1 MON AFTER (AFTER MOST RECENT BACK SURGERY: [facility]) History of back surgery X2 History of colonoscopy History of foot surgery LEFT, HEEL 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 History of total right knee replacement Family History Mother Diabetes Father Stroke syndrome Brother Asthma Emphysema, unspecified Denies family history of Prostate cancer Colorectal cancer Social History Preferred Language: Fijian Communication Ability: Effective Hearing Ability: Normal 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 Beliefs That Will Affect Care: None marital status: / Current Living Situation: Family Current Living Situation Comment: SON AND [id number] LIVE WITH PT current occupational status: retired Other Information That Helps Us Care for You: No Feels Safe at Home: Yes Safety Concerns: Feels Safe At This Time Smoking Status: Former smoker Tobacco Type: cigars ; Age Started Using Tobacco: 19 ; Age Quit Using Tobacco: 63 ; Hx Alcohol Use: Yes ("VERY LITTLE") Alcohol type: beer Alcohol Intake Frequency: Holidays/Special Occasions Hx Substance Use: No Seatbelt Use: always Sunscreen Use: No Review of Systems Review of Systems: All systems reviewed & are unremarkable except as noted in HPI & below Physical Exam Musculoskeletal: On physical examination of the right shoulder, the incision is clean and dry. There is no drainage. He is wearing a sling as instructed. His last swelling of his right forearm and his right hand. He is unable to make a fist. He is a lot of pain with it. He does have some erythema throughout. Results & Data ([facility]) Vital Signs (Past 12 Hours) Vital Signs Temp Pulse Resp BP Pulse Ox 05/23/19 07:24 36.8 C 78 20 159/74 H 94 PG Care Time/CCT Total # of Minutes Spent Total Time Spent with Patient: Total time spent is greater than 50% in coordination of care (as documented) at patient's floor/unit and/or counseling patient: Coding Level of Care Code 52565 Inpt Consult Level 3 Diagnoses Cellulitis of right arm L03.113
[2019-05-23] MEDS: ENOXAPARIN INJ 40 MG/0.4 ML SYR SQ SCH (20:52)
--- NOTE | 2019-05-24 05:00 | Billing Data ---
Date of Service May 24, 2019 Coding Level of Care Code 34661 Initial Inpt Care Lvl 3
[2019-05-24] MEDS: CEFAZOLIN 1000MG 1,000 MG/7.5 ML SYR IV SCH (05:47)
[2019-05-24] MEDS: OXYCODONE HCL IR 5 MG TAB (IMMEDIATE RELEASE) PO PRN (05:47)
[2019-05-24] MEDS: ACETAMINOPHEN 325 MG TAB PO PRN (06:33)
[2019-05-24] MEDS: LOSARTAN POTASSIUM 25 MG TAB PO SCH (08:06)
[2019-05-24] MEDS: OMEGA-3 (PURIFIED FISH OIL) 1 GM CAP PO SCH (08:06)
[2019-05-24] MEDS: ASPIRIN 81 MG ECTAB PO SCH (08:06)
[2019-05-24] MEDS: MULTIVITAMIN TAB PO SCH (08:06)
[2019-05-24] MEDS: SITAGLIPTIN PHOSPHATE 100 MG TAB PO SCH (08:06)
[2019-05-24] MEDS: INSULIN ASPART 100 UNITS/ML 3 ML PEN SC SCH ×2 (08:07→12:20)
[2019-05-24 08:15] LABS: Basophils # (auto) 0.01 K/uL (0-0.2); Basophils % (auto) 0.1 %; Eosinophils # (auto) 0.06 K/uL (0-0.5); Eosinophils % (auto) 0.8 %; Hematocrit (blood only) 34.2 % (42-52); Hemoglobin 11.6 g/dL (14.0-18.0); Immature Granulocytes # (auto) 0.05 K/uL (0.00-0.02); Immature Granulocytes % (auto) 0.7 %; Lymphocytes # (auto) 1.06 K/uL (1.2-3.4); Lymphocytes % (auto) 13.9 %; Mean Corpuscular Hemoglobin 32.1 pg (25-34); Mean Corpuscular Hgb Conc 33.9 g/dL (32-36); Mean Corpuscular Volume 94.7 fL (80-100); Mean Platelet Volume 10.6 fL (7.4-10.4); Monocytes # (auto) 1.03 K/uL (0.11-0.59); Monocytes % (auto) 13.5 %; Neutrophils # (auto) 5.41 K/uL (1.4-6.5); Platelet Count 197 K/uL (130-400); RDW Coefficient of Variation 12.8 % (11.5-14.5); RDW Standard Deviation 44.7 fL (36.4-46.3); Red Blood Count 3.61 M/uL (4.7-6.1); White Blood Count 7.62 K/uL (4.8-10.8)
[2019-05-24 08:42] LABS: BUN Creatinine Ratio 21.8 (10-20); Calcium 8.6 mg/dl (8.5-10.1); Est GFR (African American) 74.5; Est GFR (Non-African American) 64.3; Potassium 4.8 mmol/L (3.5-5.1)
--- NOTE | 2019-05-24 13:01 | Discharge Summary ---
Date of Service May 24, 2019 Admission HPI Per Admitting Provider Carlene Christianson is an 83 year old man with a past medical history of multiple orthopedic injuries including recent right shoulder arthroplasty on Monday, HTN, HLD DMII. Patient is having right arm pain and swelling since that time. Initially presented yesterday to emergency department and was evaluated and thought to be safe for discharge home for outpatient treatment on keflex. Received on dose of keflex before coming back in today. He feels his pain is too severe and the keflex is not working. He is taking oxycodone for pain from Dr. Ravi and feels like it's not touching it. He is upset he wasn't put [facility] ED trip "to take care of it". Patient does not want any stronger pain medication because he feels opiates make him confused. Also doesn't want NSAID's as they upset his stomach. Normally takes tylenol for pain. Today patient with red hot swollen right forearm afebrile, vital signs within normal limits. Labwork significant for some slight hyponatremia, elevated BUN, elevated BSG and low albumin. Patient admits he's only been drinking about 2 glasses of water per day. No white count, procalcitonin negative. Otherwise doing well, lives at home and takes care of his land in [place]. He is a former smoker smoked about five cigars a day since age 17 quit 15 years ago. NO history of CAD, CVA, lung pathology or any other chronic medical illness. Does not endorse diabetes but is on januvia and has elevated blood sugar. Principal Diagnosis Cellulitis Discharge Exam Constitutional WD/WN, vitals as above Respiratory normal respiratory effort, lungs clear to auscultation Cardiovascular Rate/Rhythm: regular rate and regular rhythm Gastrointestinal (Abdomen) Inspection/Auscultation: abdomen normal to inspection and normal bowel sounds; abdomen not distended Percussion/Palpation: abdomen soft; abdomen nontender Musculoskeletal no cyanosis or clubbing, extremities motor strength 5/5 Skin no rashes, warm and dry right arm erythematous and edematous from elbow down. Able to move fingers. Sylvester intact, no drainage from incision site, well approximated Neurologic moves all extremities and awake Psychiatric A+Ox3, euthymic affect Discharge Data Allergies Allergy/AdvReac Type Severity Reaction Status Date / Time NSAIDS (Non-Steroidal AdvReac Mild Gastrointestinal Verified 05/22/19 20:00 Anti-Inflamma Upset meloxicam AdvReac Unknown Unknown Verified 05/22/19 20:00 Consultations 05/22/19 20:12 ED Decision to Admit Stat 05/22/19 22:08 Consult Case Management - Discharge Planning Routine 05/23/19 16:34 Consult Orthopedic Surgery Routine Ordered Studies 05/22/19 18:35 CT forearm RT wo con Stat Hospital Course (1) Cellulitis of right arm: Cellulitis Only briefly attempted outpatient treatment, this is not really a failure of therapy On CT:Moderate subcutaneous and deep tissue edema of the distal upper arm and forearm suggests cellulitis, venous stasis or lymphedema. There is no drainable fluid collection and no appreciable deep tissue air. Given cefazolin 1g q8h in patient - discussed case with Dr. Ravi - patient will continue the Keflex regimen given by his office at discharge. Per Dr. Ravi, this will likely take weeks to resolve Patient afebrile, no white count procal negative, BC ngtd Component of his pain likely from post op - Continue with his oxycodone 10 mg PRN and Tylenol No DVT on US 05/20 Disposition Concerned patient may be unable to care for himself at home post op - does not qualify for rehab, will go home with home health and family support (2) Tachycardia: Resolved (3) H/O shoulder surgery: (4) Post-op pain: (5) Dehydration: Given IVF, DC'd now that he is taking in good po (6) DMII (diabetes mellitus, type 2): Continue home glyburide and Januvia at discharge - Januvia and SS inpatient A1c 6.9 Total Time Total Time Spent Total Time Spent (In Minutes): greater than 30 minutes Discharge Plan Discharge Items Patient Disposition: Home - Home Health Services Reason For Visit: CELLULITIS Discharge Diagnosis: cellulitis Condition on Discharge: Good Activity: Resume your previous activity Non-emergency contact: Primary Care Provider Call non-emergency contact if: you have any medication questions, your symptoms worsen, your pain is not controlled and you have a fever Follow-up/Referrals: Rafat Hernandez III, MD [Primary Care Provider] - (No need for pcp fu) Tomy Ravi DO [Physician] - (Follow up 1 -2 weeks ) Diet: Regular Addtl Attending Provider Instructions: (1) Cellulitis of right arm: Continue with Keflex (cephalexin) given to you by Dr. Ravi to treat antibiotics and oxycodone and acetaminophen for pain Please follow up with Dr. Ravi Home health Physical and Occupational therapy will evaluate and treat you Pending Studies at Discharge: No Stand-Alone Forms: My [facility], Smoking Cessation Medications and DC Order Prescriptions: Continued aspirin 81 mg tablet,delayed release (DR/EC) 81 mg PO DAILY Qty: 30 RF: 2 multivitamin tablet 1 tab PO DAILY RF: 0 cephalexin 500 mg capsule 500 mg PO Q6 Qty: 40 RF: 0 red yeast rice 600 mg capsule 600 mg PO DAILY RF: 0 omega 9-gpj-kmb-fish oil 1,200 (144-216) mg capsule 1 cap PO DAILY RF: 0 Januvia 100 mg tablet 100 mg PO QAM RF: 0 oxycodone 5 mg tablet 10 mg PO Q6 PRN (Reason: Pain) RF: 0 acetaminophen [Tylenol Arthritis Pain] 650 mg Tablet Extended Release 650 mg PO Q12H PRN (Reason: Pain) RF: 0 losartan 25 mg tablet 25 mg PO QAM RF: 0 Cholesterol Essentials, Otc 1 tab PO BID RF: 0 glipizide 10 mg Tablet 10 mg PO BID RF: 0 Discharge Orders: Discharge Order (Routine); Ordered 05/24/19 Ordered By: Mei Pagan Admission Data Admit Date/Time: 05/22/19 21:10 Attending Provider: Donovan Lopez Admit Provider: Geronimo Conti Primary Care Provider: Rafat Hernandez III Other Providers: Donovan Lopez ; Tomy Ravi Other Interventions: Discharge Summary Assessment (RN) Last Done: 05/24/19 12:49 DC Date/Time DO NOT enter until pt leaves facility: 05/24/19 13:52 Supervising Physician Co-Signing Physician Notes I supervised Mei Pagan NP on this patient's care. I examined the patient today independently of her. I discussed the plan of care with her with the plan being as written in her note except for any following changes/exceptions: None. Arm is still swollen, but per Ms. Hollis, no increase since yesterday. His surgical site is clean, dry, and intact without any superimposed redness. There is clear discontinuity between the surgical incision and the cellulitis. No areas of purulence noted. The patient reports his pain is somewhat improved from admission, though it is hard to quite get him to express to what degree. Overall, he is in so, so spirits, and reports he will "just have to see" how he does at home. However, even with repeated attempts to determine what his concerns are, he just says he will call someone to pick him up. As such, I do have some concerns about how he will do at home, but he resisted both Mei's and my efforts to adjust his pain regimen, get him more support, or help in any other fashion. Coding Level of Care Code D/C Day Management >30 mins Diagnoses Cellulitis of right arm L03.113 Tachycardia R00.0 H/O shoulder surgery Z98.890 Post-op pain G89.18 Dehydration E86.0 DMII (diabetes mellitus, type 2) E11.9
== END 2019-05-24 13:52 | disposition home health service (06) | DRG 603 ==
LOC: ED 18:22 → SUATTDRO 21:10 → 4W 21:10

== ENCOUNTER 2022-12-19 06:25 | Observation (INO) ==
--- NOTE | 2022-10-27 11:52 | PAT Medication Instructions ---
Medication Instructions Date of Service October 27, 2022 Home Medications Medication Instructions Recorded losartan 50 mg tablet 50 mg PO DAILY #90 tabs 03/24/21 glipizide 10 mg tablet See Rx Instructions .Route 02/07/22 .COMPLEX #180 tabs meloxicam 15 mg tablet 15 mg PO DAILY #90 tabs 07/15/22 finasteride 5 mg tablet 5 mg PO DAILY #90 tabs 10/18/22 Medication List: red yeast rice 600 mg capsule 600 mg PO QAM sitagliptin phosphate 100 mg tablet (Januvia) 100 mg PO QAM multivitamin 1 tab PO QAM omega 4-gjg-okh-fish oil 1,200 mg (144 mg-216 mg) capsule 1 cap PO QAM aspirin 81 mg tablet,delayed release 81 mg PO QAM losartan 50 mg tablet 50 mg PO DAILY tamsulosin 0.4 mg capsule (Flomax) 0.8 mg PO QAM glipizide 10 mg tablet BID meloxicam 15 mg tablet 15 mg PO DAILY ezetimibe 10 mg tablet 10 mg PO QAM finasteride 5 mg tablet 5 mg PO DAILY fluticasone furoate 50 mcg/actuation blister powder for inhalation 1 inh inhalation BID PRN Congestion gabapentin 100 mg capsule 100 mg PO TID metformin 500 mg tablet 500 mg PO BID furosemide 20 mg tablet 20 mg PO QAM MEDICATION INSTRUCTIONS: Continue as directed fluticasone furoate 50 mcg/actuation blister powder for inhalation 1 inh inhalation BID PRN Congestion ASK your surgeon for instructions meloxicam 15 mg tablet 15 mg PO DAILY ASK your prescriber and surgeon aspirin 81 mg tablet,delayed release 81 mg PO QAM STOP taking 2 weeks before surgery omega 9-mgr-ugb-fish oil 1,200 mg (144 mg-216 mg) capsule 1 cap PO QAM red yeast rice 600 mg capsule 600 mg PO QAM DO NOT take the morning of surgery losartan 50 mg tablet 50 mg PO DAILY multivitamin 1 tab PO QAM furosemide 20 mg tablet 20 mg PO QAM metformin 500 mg tablet 500 mg PO BID glipizide 10 mg tablet BID sitagliptin phosphate 100 mg tablet (Januvia) 100 mg PO QAM Take morning of surgery With a small sip of water, OTHERWISE NOTHING TO EAT OR DRINK AFTER MIDNIGHT: ezetimibe 10 mg tablet 10 mg PO QAM finasteride 5 mg tablet 5 mg PO DAILY tamsulosin 0.4 mg capsule (Flomax) 0.8 mg PO QAM gabapentin 100 mg capsule 100 mg PO TID Take evening before surgery gabapentin 100 mg capsule 100 mg PO TID glipizide 10 mg tablet BID Other Notes If you have any questions please call us at [phone] or [phone] or [phone] or [phone]
--- NOTE | 2022-11-10 11:28 | Anesthesiology Consultation ---
Date of Service November 10, 2022 Assessment & Plan (1) Encounter for pre-operative examination: - Check BSG AM DOS - Infectious disease screening: Per assessment on 11/10/22: No known infectious disease contacts or current infectious disease symptoms. No noted Covid positive test result in past 90 days. - S/P Right reverse TSA (05/17/19): Grade 2 view, MAC#3, ETT 7.5 + PNB at [facility] - PCP visit (10/21/22): "BG Readings Blood sugars controlled. Blood sugars are well below goal and patient having hypoglycemia.. Medications Reviewed current regimen, patient is adherent to regimen. Will hold glipizide at this time. Patient may be having steroid injection - so advised patient he could take 5mg (1/2 tab of 10mg) if sugars > 200 after steroid knee injection. Diet, Exercise, Lifestyle No significant lifestyle changes since last visit. Discussed with patient. Patient is agreeable to SMBG 1-2 time(s) daily. Patient aware to contact clinic if any hypoglycemia before next visit.. Diabetic Medications: HOLD Glipizide 10mg.. Januvia 100mg - 1 tab daily.. Metformin ER 500mg twice daily with meals.. Lipids..Ezetimibe 10mg daily(+ fish oil + red yeast rice).. Follow up: Return to clinic in 3 months with PCP." - Preop labs: Anemia noted on preop labs with hgb 10.9. No recent comparison labs. Note written to PCP regarding anemia- Awaiting response (Dr. Bishop/[facility]). Chart Review Chart Review: Patient seen in Pre Admission Testing Teaching & Discussion Pre-Anesthesia Teaching/Discussion Notes: Instructed NPO after midnight before surgery,except medications with 15 cc of water. Medication instructions provided according to the PAT guidelines. History Surgery Operation Date: 12/19/22 08:55 Proposed Procedures p Left Reverse Total Shoulder Arthroplasty - Tomy Ravi DO Height/Weight Height: 5 ft 8 in Weight: 78.9 kg Allergies Allergy/AdvReac Type Severity Reaction Status Date / Time niacin AdvReac Intermediate Flushing Verified 10/25/22 10:21 [From Niaspan Extended-Release] Octgurl-CLY-XdN Reductase AdvReac Intermediate Myalgia Verified 11/04/22 14:33 Inhibitor [Uxxlstu-Lua-Mvj Reductase Inhibitor] NSAIDS (Non-Steroidal AdvReac Mild Gastrointestinal Verified 10/25/22 10:21 Anti-Inflamma Upset Medications Home Medications Medication Instructions Recorded Confirmed Last Taken red yeast rice 600 mg capsule 600 mg PO QAM 08/13/18 10/25/22 06/11/20 09:00 sitagliptin phosphate 100 mg 100 mg PO QAM 02/04/19 10/25/22 06/11/20 09:00 tablet (Januvia) multivitamin 1 tab PO QAM 03/08/19 10/25/22 06/11/20 09:00 omega 3-edt-wvq-fish oil 1,200 mg 1 cap PO QAM 05/08/19 10/25/22 06/11/20 09:00 (144 mg-216 mg) capsule aspirin 81 mg tablet,delayed 81 mg PO QAM 06/09/20 10/25/22 06/11/20 09:00 release losartan 50 mg tablet 50 mg PO DAILY #90 tabs 03/24/21 10/25/22 Unknown tamsulosin 0.4 mg capsule (Flomax) 0.8 mg PO QAM 09/24/21 10/25/22 Unknown glipizide 10 mg tablet See Rx Instructions .Route 02/07/22 10/25/22 Unknown .COMPLEX #180 tabs meloxicam 15 mg tablet 15 mg PO DAILY #90 tabs 07/15/22 10/25/22 Unknown ezetimibe 10 mg tablet 10 mg PO QAM 10/18/22 10/25/22 Unknown finasteride 5 mg tablet 5 mg PO DAILY #90 tabs 10/18/22 10/25/22 Unknown fluticasone furoate 50 1 inh inhalation BID PRN Congestion 10/18/22 10/25/22 Unknown mcg/actuation blister powder for inhalation gabapentin 100 mg capsule 100 mg PO TID 10/18/22 10/25/22 Unknown metformin 500 mg tablet 500 mg PO BID 10/18/22 10/25/22 Unknown furosemide 20 mg tablet 20 mg PO QAM 10/25/22 10/25/22 Unknown Past Medical History Medical History Aortic stenosis Echo 02/2022: Mild aortic stenosis (SAL 1.7cm2) Arthritis Benign prostatic hyperplasia with urinary obstruction Degenerative disc disease DMII (diabetes mellitus, type 2) NIDDM GERD (gastroesophageal reflux disease) Controlled History of COVID-19 2020- congestion, cough, SOB; resolved Hypercholesterolemia Hypertension Lumbar spinal stenosis PVCs (premature ventricular contractions) Per records Sciatica Exercise / Class Metabolic Activity III < 4 Walking/Shop/Light housework Past Family History Family History Mother Diabetes Father Stroke syndrome Brother Emphysema, unspecified Asthma Other No family history of adverse response to anesthesia Denies family history of Ovarian cancer Prostate cancer Myocardial infarction Breast cancer Lung cancer Colorectal cancer Past Surgical History Surgical History History of anesthesia reaction Post-op hiccups x1 month (after most recent back surgery, [facility]) History of back surgery x2 History of colonoscopy History of foot surgery Left heel History of reverse total replacement of right shoulder joint Right reverse TSA (05/17/19): Grade 2 view, MAC#3, ETT 7.5 + PNB at [facility] History of right hip replacement History of total right knee replacement S/P carpal tunnel release Right Past Anesthesia History No Hx of Anesthesia Complications and No Family Hx of Anesthesia Complications History of PONV No Hx of PONV and No Hx of Motion Sickness Social History Smoking Status: Former smoker tobacco type: cigars Do You Dip or Chew Tobacco: No Smoking End Date: Quit 15 years ago Hx Alcohol Use: Yes ("very rarely") Alcohol type: beer alcohol intake frequency: holidays/special occasions only Hx Substance Use: No substance use type: does not use Review of Systems Patient denies chest pain, shortness of breath, fever, chills, cough, wheezing, palpitations. Physical Exam Vital Signs VITALS BP 121/67 P 76 TEMP 97.9 SP02 97%RA RESP 18 PHYSICAL Mildly decreased cervical extension range of motion. Full TMJ range of motion. TMD 2.5 finger breaths Mallampati Score 2 Dentition: missing molars Lungs: clear throughout to auscultation Cardiac: regular rate and rhythm, I-II/ systolic murmur Spine: normal Carotid arteries: negative bruit Extremities: no LE edema Lab Results Anesthesia Preop Results Results Anesthesia Widget: WBC 6.13 K/ul (4.8-10.8) 11/10/22 Hgb 10.9 g/dl (14.0-18.0) L 11/10/22 Hct 32.2 % (42.0-52.0) L 11/10/22 Plt 152 K/uL (130-400) 11/10/22 Na 139 mmol/L (136-145) 11/10/22 K 4.5 mmol/L (3.5-5.1) 11/10/22 Cl 103 mmol/L (98-107) 11/10/22 CO2 31 mmol/L (21-32) 11/10/22 BUN 30 mg/dl (6-23) H 11/10/22 Creat 1.35 mg/dl (0.6-1.4) 11/10/22 Glucose Level 226 mg/dl (70-99(Fasting)) H 11/10/22 PT 11.1 Seconds (9.0-12.0) 11/10/22 PTT 27.3 Seconds (21.0-31.0) 11/10/22 INR 1.0 (0.9-1.1) 11/10/22 Blood Type A Negative 11/10/22 Antibody Screen NEGATIVE 11/10/22 Testing Laboratory Results Hgba1c (10/21/22): 6.3% Electrocardiogram Date: 11/10/22 NSR at 78bpm. unconfirmed report. Chest X-Ray Date: 11/10/22 FINDINGS: Right reverse shoulder arthroplasty is seen. Calcified aortic knob is seen. The lungs are clear. No evidence of pleural effusion or pneumothorax. Degenerative changes are seen in the spine. IMPRESSION: No acute chest disease. Echocardiogram Date: 02/16/22 LVEF 60-64%. Moderately increased cLV wall thickness. Mild LAE. Severe mitral annular calcification. Grade I DD. Moderately calcified AV. Mild aortic valve stenosis (SAL 1.7cm2).
--- NOTE | 2022-12-15 08:08 | History & Physical Report ---
Date of Service December 15, 2022 Assessment & Plan (1) Primary osteoarthritis of left shoulder: We will proceed with a left reverse shoulder arthroplasty. Postoperatively he will be placed in a sling and kept overnight in the hospital for postop medical management. He plans to use Easy Tempo upon discharge. History of Present Illness Chief Complaint: Osteoarthritis of the left shoulder. Primary Care Provider: NO PCP Carlene is a pleasant 86-year-old male who I did a right reverse shoulder arthroplasty on in the past. He has done very well with that. Unfortunately he is really struggling with his left shoulder. He is having trouble doing anything away from his body or up overhead. I have been giving him injections but they are not helping. He cannot sleep at night. He states he cannot no longer live like this. His shoulder hurts him all the time. After failing conservative treatment, he has elected proceed with a left reverse shoulder arthroplasty. Allergies Allergy/AdvReac Type Severity Reaction Status Date / Time niacin AdvReac Intermediate Flushing Verified 10/25/22 10:21 [From Niaspan Extended-Release] Vdlwzav-HUL-GlT Reductase AdvReac Intermediate Myalgia Verified 11/04/22 14:33 Inhibitor [Hmrrskc-Oym-Exg Reductase Inhibitor] NSAIDS (Non-Steroidal AdvReac Mild Gastrointestinal Verified 10/25/22 10:21 Anti-Inflamma Upset Home Medications Medication Instructions Recorded Confirmed Type red yeast rice 600 mg capsule 600 mg PO QAM 08/13/18 10/25/22 History sitagliptin phosphate 100 mg 100 mg PO QAM 02/04/19 10/25/22 History tablet (Januvia) multivitamin 1 tab PO QAM 03/08/19 10/25/22 History omega 1-ucw-lri-fish oil 1,200 mg 1 cap PO QAM 05/08/19 10/25/22 History (144 mg-216 mg) capsule aspirin 81 mg tablet,delayed 81 mg PO QAM 06/09/20 10/25/22 History release losartan 50 mg tablet 50 mg PO DAILY #90 tabs 03/24/21 10/25/22 Rx tamsulosin 0.4 mg capsule (Flomax) 0.8 mg PO QAM 09/24/21 10/25/22 History glipizide 10 mg tablet See Rx Instructions .Route 02/07/22 10/25/22 Rx .COMPLEX #180 tabs meloxicam 15 mg tablet 15 mg PO DAILY #90 tabs 07/15/22 10/25/22 Rx ezetimibe 10 mg tablet 10 mg PO QAM 10/18/22 10/25/22 History finasteride 5 mg tablet 5 mg PO DAILY #90 tabs 10/18/22 10/25/22 Rx fluticasone furoate 50 1 inh inhalation BID PRN Congestion 10/18/22 10/25/22 History mcg/actuation blister powder for inhalation gabapentin 100 mg capsule 100 mg PO TID 10/18/22 10/25/22 History metformin 500 mg tablet 500 mg PO BID 10/18/22 10/25/22 History furosemide 20 mg tablet 20 mg PO QAM 10/25/22 10/25/22 History Past Med/Surg History Medical History Aortic stenosis Echo 02/2022: Mild aortic stenosis (SAL 1.7cm2) Arthritis Benign prostatic hyperplasia with urinary obstruction Degenerative disc disease DMII (diabetes mellitus, type 2) NIDDM GERD (gastroesophageal reflux disease) Controlled History of COVID-2020- congestion, cough, SOB; resolved Hypercholesterolemia Hypertension Lumbar spinal stenosis PVCs (premature ventricular contractions) Per records Sciatica Surgical History History of anesthesia reaction Post-op hiccups x1 month (after most recent back surgery, [facility], [place], operated by [facility]) History of back surgery x2 History of colonoscopy History of foot surgery Left heel History of reverse total replacement of right shoulder joint Right reverse TSA (05/17/19): Grade 2 view, MAC#3, ETT 7.5 + PNB at [facility] History of right hip replacement History of total right knee replacement S/P carpal tunnel release Right Family History Mother Diabetes Father Stroke syndrome Brother Emphysema, unspecified Asthma Other No family history of adverse response to anesthesia Denies family history of Ovarian cancer Prostate cancer Myocardial infarction Breast cancer Lung cancer Colorectal cancer Social History Smoking Status: Former smoker Tobacco Type: Cigarettes Age Started Using Tobacco: 19; Age Quit Using Tobacco: 63; Second Hand Exposure: No; Do You Dip or Chew Tobacco: No; Hx Alcohol Use: Yes ("very rarely") Alcohol type: beer Hx Substance Use: No Preferred Language: Qatari Communication Ability: Effective Visual Impairment: Partially Limited Hearing Ability: Normal Reordering Clerk Required: No Beliefs That Will Affect Care: None marital status: / Current Living Situation: Family Current Living Situation Comment: SON AND [id number]-[id number] LIVE WITH PT current occupational status: retired Feels Safe at Home: Yes Childhood Exposure to Second-Hand Smoke: Yes Diet: regular caffeine: Yes Dental Care, Regularly: Yes Physical Activity Frequency: 1-2 Times per Week Seatbelt Use: always Sunscreen Use: No Assistive Devices: Glasses Review of Systems All systems reviewed & are unremarkable except as noted in HPI & below. Physical Exam On physical examination of left shoulder, he has decreased range of motion. He has pain over the glenohumeral joint line. He has weakness throughout.. Constitutional WD/WN, vitals as above Eyes PERRL, conjunctivae normal, anicteric sclerae ENMT external ear and nose normal, oropharynx normal Neck trachea midline, no thyromegaly Respiratory normal respiratory effort, lungs clear to auscultation Cardiovascular RRR, no murmur, no edema Gastrointestinal (Abdomen) normal bowel sounds, soft, nontender, no hepatosplenomegaly Skin no rashes, warm and dry Psychiatric A+Ox3, euthymic affect Results & Data Results & Data Laboratory Results . Diagnostic Findings X-rays of the left shoulder show advanced osteoarthritis with joint space narrowing, osteophyte formation, and dzaq-az-[id number] reticulation.. PG Care Time/CCT Total # of Minutes Spent Total Time Spent with Patient: Total time spent is greater than 50% in coordination of care (as documented) at patient's floor/unit and/or counseling patient: Coding Level of Care Code None Diagnoses Primary osteoarthritis of left shoulder M19.012
[~2022-12-19 06:25] MED LIST changes: -BUPIVACAINE 0.5 % 5 MG/1 ML PF 10ML VIAL ONE; -CEFAZOLIN 2000MG 2,000 MG/15 ML SYR IV SCH; -LR 15ML/HR IV SCH; +ORTHO JOINT MIX INFIL SCH; -ROPIVACAINE 0.5% HCL/PF 150 MG, BUPIVACAINE 0.5% MPF 30 ML, EPINEPHrine 30MG/30ML (OR U... INSTIL SCH; -TRANEXAMIC ACID / 0.7% NACL 1,000 MG/100 ML BAG IV SCH; +TRANEXAMIC ACID 1,000 MG **IV Intra-op IV SCH; +TRANEXAMIC ACID 1,000 MG **IV Pre-op IV SCH; +ceFAZolin 2000MG 2,000 MG/15 ML SYR IV SCH
--- NOTE | 2022-12-19 06:43 | History & Physical Bridge Note ---
Date of Service December 19, 2022 History & Physical Bridge Note I have examined the patient, reviewed the History & Physical and in the interval since the performance of the History & Physical I have noted the following changes of clinical significance: no changes noted
[2022-12-19] MEDS ORDERED: MIDAZOLAM HCL 1 MG/ML 2ML VIAL ONE (06:53)
[2022-12-19] MEDS ORDERED: fentaNYL citrate PF 100 MCG/2 ML VIAL ONE (06:53)
[2022-12-19] MEDS ORDERED: BUPIVACAINE 0.5 % 5 MG/1 ML PF 10ML VIAL ONE (06:57)
[2022-12-19] MEDS ORDERED: ORTHO JOINT ANESTHETIC ONE (07:02)
[2022-12-19] MEDS ORDERED: PHENYLEPHRINE HCL 10 MG/ML VIAL ONE (07:11)
[2022-12-19] MEDS ORDERED: PROPOFOL IV EMULSION 10 MG/ML 20 ML VIAL IV ONE (07:11)
[2022-12-19] MEDS ORDERED: LIDOCAINE 2% 2 ML VIAL/AMP(20MG/ML) INFIL ONE (07:11)
[2022-12-19] MEDS ORDERED: ONDANSETRON INJ 2 MG/ML 2 ML VIAL ONE (07:11)
[2022-12-19] MEDS ORDERED: ePHEDrine sulfate 50 MG/ML AMP IV PRN (08:37)
[2022-12-19] MEDS ORDERED: ATROPINE SULFATE 0.1 MG/ML 10ML SYR IV PRN (08:37)
[2022-12-19] MEDS ORDERED: fentaNYL citrate PF 100 MCG/2 ML VIAL IV PRN (08:37)
[2022-12-19] MEDS ORDERED: ONDANSETRON INJ 2 MG/ML 2 ML VIAL IV PRN ×2 (08:37→11:31)
[2022-12-19] MEDS ORDERED: PHENYLEPHRINE 100MCG/ML 5ML SYR ONE (09:16)
--- NOTE | 2022-12-19 09:22 | Operative Report ---
PG Post Operative Report Pre & Post Diagnosis Operation Date: 12/19/22 08:00 Pre-Op Diagnosis: Osteoarthritis of the left shoulder. Post-Op Diagnosis: Osteoarthritis of the left shoulder. I identified the patient and participated in the time-out.: Yes Procedure Operation Date: 12/19/22 08:00 Actual Procedures p Left Reverse Total Shoulder Arthroplasty(Left) - Tomy Ravi DO Surgeon Tomy Ravi DO Foxing Closer Tomy Hopkins PA-C Estimated Blood Loss 200 Findings Consistent with Post-Op Diagnosis Specimens Left humeral head Description of Procedure Implants used: I used a [employer]omet Comprehensive reverse total shoulder arthroplasty system with a size 12 press fit micro humeral stem, a +6 offset humeral tray and a +3 retentive humeral bearing, a 25 mm medium augment baseplate with a 6.5 mm central screw and superior and inferior locking screws, and a size 40 mm eccentric glenosphere. Carlene arrived at [facility] for the above procedure. He was seen in the preoperative holding area and the operative extremity was identified and signed. He was given a preoperative antibiotic, TXA, and an interscalene nerve block. He was taken back to the operating room, laid on table in supine position, and put under general anesthesia. He was then put into the beachchair position. The shoulder was then prepped and draped in sterile fashion. A timeout was done and the patient and the operative extremity was properly identified. A deltopectoral approach was used. Dissection was taken down through the fascia and the deltoid was retracted laterally and the conjoined tendon was retracted medially. The anterior shoulder was exposed. The biceps tendon was chronically torn. The subscapularis was then directly released off the lesser tuberosity with a peel technique. The inferior capsule was released and the humeral head was dislocated. A canal finding reamer was sent down the center of the humeral canal. Sequential reaming up to a size 12 reamer was done. Off that reamer, a proximal humeral resection guide was placed. The proximal humerus was resected at 135 of inclination and 25 of retroversion. Osteophytes were then removed and the glenoid was exposed. Time was spent doing a complete capsular and labral release. A [employer] Signature One guide was then attached onto the anterior rim of the glenoid. A 3.2 mm Steinmann pin was then placed in the reverse total shoulder arthroplasty hole. The glenoid baseplate was then reamed. The final size 25 mm medium augment bas eplate was then impacted in the place. A 6.5 mm central screw was then placed followed by superior and inferior locking screws. A 40 mm eccentric glenosphere was then impacted into place. Surrounding soft tissues were then injected with 100 cc an orthopedic pain control cocktail. The proximal humerus was then exposed. Sequential broaching of the humerus up to a size 12 broach was done. Off that broach a +6 offset and +3 retentive humeral tray was trialed. The shoulder was then reduced, brought through a full range of motion, and felt to be stable. The shoulder was then dislocated and the broach was removed. The final size 12 micro press-fit humeral stem was then impacted into place. A +3 retentive humeral bearing was then snapped onto a +6 offset humeral tray. The humeral tray was then impacted onto the humeral stem. The shoulder was once again reduced, brought through a full range of motion, and felt to be stable. The subscapularis was very poor quality and unable to be repaired. A dilute betadyne lavage was then done for 3 minutes. The joint was then irrigated with normal saline solution. Hemostasis was obtained. The interval was closed with 2-0 Vicryl suture. The skin was then closed with 2-0 Vicryl and kevin. A Silverlon dressing was placed and the arm was rested in a regular arm sling. He was then extubated and transferred to a hospital bed. He taken to the postanesthesia care unit in stable condition. He tolerated the procedure well. Tomy Hopkins PA-C, was present for the entire procedure. He was critical for patient positioning, prepping, draping, retraction exposure, wound closure and application of sterile dressing. I attest to the content of the Intraoperative Record and any orders documented therein. Any exceptions are noted below.
--- NOTE | 2022-12-19 11:01 | Anesthesiology Progress Note ---
Date of Service December 19, 2022 Anesthesia Post Procedure Vital Signs Vital Signs: Temp Pulse Pulse Resp BP Pulse Ox O2 Del Method 12/19/22 10:50 60 15 102/55 L 97 Nasal Cannula 12/19/22 10:35 60 15 111/62 97 Nasal Cannula 12/19/22 10:00 62 17 123/61 100 Oxymask 12/19/22 10:20 97.0 F L 59 L 18 106/67 100 Nasal Cannula 12/19/22 10:10 59 L 17 120/65 95 Nasal Cannula 12/19/22 09:50 61 14 120/60 100 Oxymask 12/19/22 09:40 96.8 F L 65 17 127/64 96 Oxymask 12/19/22 06:51 98.4 F 70 18 151/91 H 93 Room Air O2 Flow Rate 12/19/22 10:50 2 12/19/22 10:35 2 12/19/22 10:00 5 12/19/22 10:20 2 12/19/22 10:10 2 12/19/22 09:50 5 12/19/22 09:40 5 12/19/22 06:51 Pain Intensity Left Shoulder: Pain Intensity: 7 Transfer of Care Handoff Completed per policy Notes Mental Status: alert / awake / arousable and participated in evaluation Patient Amnestic to Procedure: Yes Nausea / Vomiting: adequately controlled Pain: adequately controlled Airway Patency, RR, SpO2: stable & adequate BP & HR: stable & adequate Hydration State: stable & adequate Anesthetic Complications: no major complications apparent and Pt Satisfied with anesthetic care
--- NOTE | 2022-12-19 11:10 | XRay Report ---
XR shoulder LT min 2V routine CLINICAL HISTORY: Post shoulder surgery. COMPARISON: Left shoulder radiographs October 12, 2022. Left shoulder CT November 10, 2022. FINDINGS: Alignment of the reverse total left shoulder arthroplasty is anatomic. There is no peripro sthetic fracture or unexpected radiopaque foreign body. There are skin kevin. IMPRESSION: Expected findings following reverse total left shoulder arthroplasty. ACT 112: Negative or not required by law. Electronically signed by: Twin Lee M.D. 12/19/2022 11:09 AM
[2022-12-19] MEDS ORDERED: SODIUM CHLORIDE 0.9% 1,000 ML IV SCH (11:31)
[2022-12-19] MEDS ORDERED: NALOXONE HCL 0.4 MG/1 ML VIAL/CARP IV PRN (11:31)
[2022-12-19] MEDS ORDERED: HYDROmorphone INJ 0.5 MG/0.5 ML SYR IV PRN (11:31)
[2022-12-19] MEDS ORDERED: oxyCODONE HCL IR 5 MG TAB (IMMEDIATE RELEASE) PO PRN (11:31)
[2022-12-19] MEDS ORDERED: METOCLOPRAMIDE HCL INJ 5 MG/ML 2 ML VIAL IV PRN (11:31)
[2022-12-19] MEDS ORDERED: MAGNESIUM HYDROXIDE SUSP 30 ML UDC PO PRN (11:31)
[2022-12-19] MEDS ORDERED: PHARMACY GLYCEMIC MGMT CONSULT PRN (11:31)
[2022-12-19] MEDS ORDERED: bisacodyL 10 MG SUPP PR PRN (11:31)
[2022-12-19] MEDS ORDERED: FLUTICASONE PROPIONATE NA SPR 16 GM BTL PRN (11:41)
[2022-12-19] MEDS ORDERED: DEXTROSE 50% 50 ML SYRINGE IV PRN (11:45)
[2022-12-19] MEDS ORDERED: LANTUS PER UNIT CHARGE SC ONE ×2 (11:45→21:00)
[2022-12-19] MEDS ORDERED: GLUCAGON FOR INJ 1 MG VIAL IM PRN (11:45)
[2022-12-19] MEDS ORDERED: GLUCOSE 10 TAB/TUBE PO PRN (11:45)
[2022-12-19] MEDS ORDERED: CARBOHYDRATES FOR HYPOGLYCEMIA PO PRN (11:45)
[2022-12-19] MEDS ORDERED: GLUCOSE 40% GEL 15 GM TUBE PO PRN (11:45)
[2022-12-19] MEDS: INSULIN ASPART PER UNIT CHARGE SC SCH ×4 (12:04→23:20)
--- NOTE | 2022-12-19 13:26 | Pharmacy Report ---
Pharmacy Glycemic Short Note 2 - Date of Service December 19, 2022 - Glycemic Short BSG Results (Last 24 hours): 12/19/22 12/19/22 12/19/22 06:56 09:51 11:34 POC Glucose 127 H 165 H 204 H OUTPATIENT ANTIDIABETIC REGIMEN: * Glipizide 10 mg daily, metformin 500 mg BID, sitagliptin 100 mg qAM * Pending ASSESSMENT: * Patient's blood sugar elevated following surgery- 204 mg/dL * Was given Dexamethasone 8 mg PO preop. Will initiate novolog at weight based stress of 3 * Half Stress of 3 lantus given with lunch, add overnight checks PLAN FOR INPATIENT GLYCEMIC CONTROL: * Hold outpatient oral diabetes medications * Basal insulin * Lantus 20 units SQ x1 * Bolus insulin * NovoLog per scale ACHS or Q6hrs while NPO * Goal Range: Low 110 mg/dL - High 150 mg/dL * Correction Factor: 20 mg/dL/unit * Nutritional / Prandial insulin per carb ratio of 1 unit per 7 grams CHO consumed
[2022-12-19] MEDS: ACETAMINOPHEN 500 MG TAB PO SCH ×2 (14:44→21:46)
[2022-12-19] MEDS: GABAPENTIN 100 MG CAP PO SCH ×2 (14:44→20:25)
[2022-12-19] MEDS: ceFAZolin 2000MG 2,000 MG/15 ML SYR IV SCH ×2 (15:52→23:11)
[2022-12-19] MEDS: DOCUSATE SODIUM 100 MG CAP PO SCH (20:26)
[2022-12-19] MEDS ORDERED: SENNA 8.6 MG TAB PO SCH (21:00)
[2022-12-20] MEDS: INSULIN ASPART PER UNIT CHARGE SC SCH ×2 (03:51→08:12)
--- NOTE | 2022-12-20 07:03 | Orthopedic Progress Note ---
Date of Service December 20, 2022 Assessment & Plan (1) Status post reverse total replacement of left shoulder: Overall he is doing very well. He is not having much pain in the left shoulder. He will be seen by physical therapy today for ambulation and range of motion exercises. He can be discharged home later today. He will follow-up with orthopedics in 2 weeks. Broderick Concepcion was seen and examined at bedside this morning. Overall is doing very well. He is not having much pain in the left shoulder. He was able to get some sleep last night. He has no complaints.. Review of Systems All systems reviewed & are unremarkable except as noted in HPI & below. Physical Exam On physical examination left shoulder, the dressing is clean and dry. He is wearing his sling as instructed. He has active motion of his hand and his wrist.. Results & Data Results & Data Laboratory Results . Diagnostic Findings Postoperative x-rays of the left shoulder show the prosthesis to be in anatomic alignment without any evidence of fracture complication, or loosening.. PG Care Time/CCT Total # of Minutes Spent Total Time Spent with Patient: Total time spent is greater than 50% in coordination of care (as documented) at patient's floor/unit and/or counseling patient: Coding Level of Care Code 88095 Post Operative Follow-Up Diagnoses Status post reverse total replacement of left shoulder Z96.612
--- NOTE | 2022-12-20 07:04 | Discharge Summary ---
Date of Service December 20, 2022 Admission HPI (Per Admitting) Carlene is a pleasant 86-year-old male who I did a right reverse shoulder arthroplasty on in the past. He has done very well with that. Unfortunately he is really struggling with his left shoulder. He is having trouble doing anything away from his body or up overhead. I have been giving him injections but they are not helping. He cannot sleep at night. He states he cannot no longer live like this. His shoulder hurts him all the time. After failing conservative treatment, he has elected proceed with a left reverse shoulder arthroplasty. Admission Exam (Per Admitting) On physical examination of left shoulder, he has decreased range of motion. He has pain over the glenohumeral joint line. He has weakness throughout.. Principal Diagnosis Same as "Discharge Diagnosis" noted below under Discharge Instructions. Discharge Exam On physical examination left shoulder, the dressing is clean and dry. He is wearing his sling as instructed. He has active motion of his hand and his wrist.. Discharge Data Procedures Performed Operation Date: 12/19/22 08:00 Actual Procedures p Left Reverse Total Shoulder Arthroplasty(Left) - Tomy Ravi DO Ordered Studies 12/19/22 05:00 US - OR guided needle placemen Routine Hospital Course (1) Status post reverse total replacement of left shoulder: On December 19, 2022 Carlene arrived at [facility] and underwent a left reverse shoulder replacement without complication. He had a general anesthetic and a left interscalene nerve block. Postoperatively he was placed in a sling and transferred to the general orthopedic floors. His hospital course was uneventful. On postop day #1, his vital signs were stable and his pain was well controlled. He was able to participate well with physical therapy doing ambulation and range of motion exercises. He was then discharged home. He will follow-up with orthopedics in 2 weeks. PG Care Time/CCT Total # of Minutes Spent Total Time Spent with Patient: Total time spent is greater than 50% in coordination of care (as documented) at patient's floor/unit and/or counseling patient: Discharge Plan Discharge Items Patient Disposition: Home - Home Health Services Reason For Visit: DJD Left Shoulder Discharge Diagnosis: Left reverse shoulder replacement Activity: Per Instructions section Non-emergency contact: Surgeon Call non-emergency contact if: your wound has increased redness and your wound has increased drainage Follow-up/Referrals: Ivy Bishop DO [Primary Care Provider] - Diet: Regular Addtl Attending Provider Instructions: Activity and Therapy Recommendations: * If you are using [facility] then therapy will be provided at your home until they feel you have accomplished all of your goals. * If you are using [facility] then Physical Therapy will be provided until they feel you are ready to start Outpatient Physical Therapy. * If you are not using home therapy then Outpatient Physical Therapy should start about 3-5 days from your day of surgery. Therapy will last about 8-12 weeks * Wear your sling for 3 weeks, unless otherwise instructed. You may remove your sling to shower and to dress, but otherwise, you should be in your sling at all times, including while sleeping * The shoulder replacement is very stable and you can use your hand while in the sling * You were shown a series of exercises in the hospital. Do these exercises daily including the exercises you were shown in physical therapy. Medications: * Narcotic You will likely be sent home from the hospital with a prescription for the narcotic pain medication that worked best throughout your stay. * Other medications may be prescribed for specific circumstances. If you have any questions, please call the office at . * Resume previous home medications unless otherwise instructed Dressing Care: Leave the Silverlon dressing in place for 7 days. After 7 days you may remove the dressing. If the incision is not draining then you may leave the kevin open to air. If there is a little bit of drainage or if the kevin are getting stuck on your clothing then cover the incision with a dry dressing. The kevin will be removed at your 2 week follow-up appointment. Showering: You may shower with the Silverlon dressing in place. Do not let the shower spray hit the dressing directly. Pat the Silverlon dressing dry. If the dressing becomes wet underneath, then simply remove the dressing. Keep the incision dry until you are 7 days out from the day of surgery. After 7 days you may remove the Silverlon dressing and shower with the kevin exposed. Let soapy water run over the kevin and pat them dry. Do not scrub or soak the incision. Things To Watch For: * Drainage from the incision site that occurs more than one week after your surgery. * Increased redness at the incision site. * Fever above 102 degrees Fahrenheit. * Unusual chest pain or shortness of breath. * Call [facility] at with any of the above problems Follow-Up Visit: Follow-up with Dr. Ravi's PA (Tomy Hopkins) 2-3 weeks after your day of surgery. He will remove your kvein and answer any questions. If you have any additional questions or concerns, Dr Ravi is usually in the office at the same time and will be available An appointment was probably scheduled when you signed-up for surgery in the office. If you have any questions call More detailed instructions as well as Frequently Asked Questions were provided in a folder by our office when you signed-up for surgery. Please review these instructions when you get home. If you have any further questions or concerns, please feel free to call the office at [phone] Pending Studies at Discharge: No Stand-Alone Forms: My [facility], Smoking Cessation Medications and DC Order Prescriptions: New tramadol 50 mg tablet 50 mg PO Q6H PRN (Reason: pain) Qty: 30 0RF Continued glipizide 10 mg tablet See Rx Instructions .ROUTE .COMPLEX Qty: 180 3RF Dose Instruction: TAKE ONE TABLET(10MG) BY MOUTH TWO TIMES A DAY WITH BREAKFAST AND SUPPER Rx Instructions: TAKE ONE TABLET(10MG) BY MOUTH TWO TIMES A DAY WITH BREAKFAST AND SUPPER meloxicam 15 mg tablet 15 mg PO DAILY Qty: 90 1RF multivitamin tablet 1 tab PO QAM red yeast rice 600 mg capsule 600 mg PO QAM omega 5-xiz-zdl-fish oil 1,200 (144-216) mg capsule 1 cap PO QAM Januvia 100 mg tablet 100 mg PO QAM tamsulosin [Flomax] 0.4 mg capsule 0.8 mg PO QAM metformin 500 mg tablet 500 mg PO BID gabapentin 100 mg capsule 100 mg PO TID ezetimibe 10 mg tablet 10 mg PO QAM fluticasone furoate 50 mcg/actuation blister with device 1 inh inhalation BID PRN (Reason: Congestion) finasteride 5 mg tablet 5 mg PO DAILY Qty: 90 3RF losartan 50 mg tablet 50 mg PO DAILY Qty: 90 3RF furosemide 20 mg tablet 20 mg PO QAM aspirin 81 mg tablet,delayed release (DR/EC) 81 mg PO QAM Admission Data Admit Date/Time: 12/19/22 09:38 Attending Provider: Tomy Ravi Admit Provider: Tomy Ravi Primary Care Provider: Ivy Bishop Other Providers: [facility]
[2022-12-20] MEDS: ACETAMINOPHEN 500 MG TAB PO SCH (07:33)
[2022-12-20] MEDS: GABAPENTIN 100 MG CAP PO SCH (07:35)
[2022-12-20] MEDS: DOCUSATE SODIUM 100 MG CAP PO SCH (07:36)
[2022-12-20 08:29] LABS: Estimated Average Glucose 137 mg/dl; Hemoglobin A1C 6.4 % (4.5-5.6)
[2022-12-20] MEDS ORDERED: LANTUS PER UNIT CHARGE SC ONE (09:00)
[2022-12-20] MEDS ORDERED: FINASTERIDE 5 MG TAB PO SCH (09:00)
[2022-12-20] MEDS ORDERED: FUROSEMIDE 20 MG TAB PO SCH (09:00)
[2022-12-20] MEDS ORDERED: LOSARTAN POTASSIUM 50 MG TAB PO SCH (09:00)
[2022-12-20] MEDS ORDERED: EZETIMIBE 10 MG TAB PO SCH (09:00)
[2022-12-20] MEDS ORDERED: ASPIRIN 81 MG ECTAB PO SCH (09:00)
[2022-12-20] MEDS ORDERED: MULTIVITAMIN TAB PO SCH (09:00)
[2022-12-20] MEDS ORDERED: TAMSULOSIN HCL 0.4 MG CAP PO SCH (09:00)
[2022-12-20] MEDS ORDERED: LANTUS PER UNIT CHARGE SC SCH (21:00)
== END 2022-12-20 11:35 | disposition home health service (06) ==
LOC: ASU 06:25 → 3E 06:25